=== PATIENT | female | born 1975 | race Caucasian/White ===

== ENCOUNTER 2020-09-10 19:08 | Outpatient (REF) | payer OTHER, SELFPAY | END 2020-09-10 19:09 | disposition home or self-care (01) | LOC: HO.LNP 19:08 | PROVIDERS: Visit Provider Family Medicine | DX: Z20.828 Contact with and (suspected) exposure to other viral communicable diseases (principal) | CPT/HCPCS: 87635 ==

== ENCOUNTER 2020-09-24 08:13 | Outpatient (REF) | payer OTHER, SELFPAY | END 2020-09-24 08:14 | disposition home or self-care (01) | LOC: HO.WFDLDS 08:13 | PROVIDERS: Visit Provider Internal Medicine | DX: Z20.828 Contact with and (suspected) exposure to other viral communicable diseases (principal) | CPT/HCPCS: C9803; U0003 ==

== ENCOUNTER 2020-12-19 07:03 | Outpatient (REF) | payer OTHER, SELFPAY ==
[2020-12-19 11:22] LABS: MANUAL DIFF FLAG NO
[2020-12-19 11:35] LABS: Basophils Percent Auto 0.9 % (0-2); Eosinophils Absolute Auto 0.1 X10*3/uL (0.0-0.4); Eosinophils Percent Auto 2.9 % (0-4); Hemoglobin 8.8 g/dl (12.0-16.0); Lymphocytes Absolute Auto 1.3 X10*3/uL (1.2-4.9); Lymphocytes Percent Auto 37.3 % (20-40); Mean Corpuscular HGB Conc 28.4 g/dl (31.0-35.0); Mean Corpuscular Hemoglobin 19.6 pg (27.0-33.0); Mean Platelet Volume 10.7 fL (9.4-12.3); Monocytes Absolute Auto 0.3 X10*3/uL (0.1-1.2); Monocytes Percent Auto 8.4 % (2-11); Neutrophils Absolute Auto 1.8 X10*3/uL (2.0-8.3); Neutrophils Percent Auto 50.5 % (45-73); Platelet Count 270 X10*3/uL (160-400); Red Blood Count 4.49 X10*6/uL (4.20-5.50); Red Cell Distribution Width 17.2 % (11.0-16.0); White Blood Count 3.5 X10*3/uL (4.8-10.8)
[2020-12-19 11:45] LABS: Estimated Average Glucose 117 mg/dL; Hemoglobin A1c % 5.7 %
[2020-12-19 12:05] LABS: Alanine Aminotransferase 24 U/L (0-31); Albumin Level 4.3 g/dL (3.5-5.0); Alkaline Phosphatase 59 U/L (39-117); Anion Gap 14 (12-20); Aspartate Amino Transferase 26 U/L (5-31); Bilirubin Total < 0.2 mg/dL (0.0-1.0); Blood Urea Nitrogen 13 mg/dL (9-16); Calcium 8.6 mg/dL (8.4-10.2); Carbon Dioxide 26 mmol/L (22-29); Chloride 105 mmol/L (96-108); Estimated Glomerular Filt Rate > 60; Glucose Random 97 mg/dL (60-115); Potassium 4.5 mmol/L (3.3-5.1); Sodium 140 mmol/L (135-145); Total Protein 7.4 g/dL (6.5-8.0)
[2020-12-19 12:17] LABS: TSH reflex Free T4 1.63 uIU/mL (0.32-4.0)
[2020-12-20 06:27] LABS: Follicle Stimulating Hormone 5.8 mIU/mL; Lutenizing Hormone 1.2 mIU/mL
== END 2020-12-19 07:04 | disposition home or self-care (01) ==
LOC: HO.WFDLDS 07:03
PROVIDERS: Visit Provider Family Medicine
DX: Z00.00 Encounter for general adult medical examination without abnormal findings (principal); N95.1 Menopausal and female climacteric states; R53.83 Other fatigue; R63.5 Abnormal weight gain; Z86.2 Personal history of diseases of the blood and blood-forming organs and certain disorders involving the immune mechanism; Z86.32 Personal history of gestational diabetes
CPT/HCPCS: 36415; 80053; 83001; 83002; 83036; 84443; 85025

== ENCOUNTER 2020-12-30 12:53 | Outpatient (REF) | payer OTHER, SELFPAY ==
[2020-12-30 13:46] LABS: MANUAL DIFF FLAG NO
[2020-12-30 13:52] LABS: Basophils Percent Auto 0.4 % (0-2); Eosinophils Percent Auto 0.8 % (0-4); Hematocrit 31.4 % (37-47); Hemoglobin 8.8 g/dl (12.0-16.0); Immature Retic Fraction 17.1 % (3.0-15.9); Lymphocytes Absolute Auto 1.3 X10*3/uL (1.2-4.9); Mean Corpuscular Hemoglobin 19.6 pg (27.0-33.0); Mean Corpuscular Volume 69.9 fL (80-98); Mean Platelet Volume 10.6 fL (9.4-12.3); Monocytes Absolute Auto 0.4 X10*3/uL (0.1-1.2); Monocytes Percent Auto 7.1 % (2-11); Neutrophils Absolute Auto 3.3 X10*3/uL (2.0-8.3); Neutrophils Percent Auto 65.7 % (45-73); Platelet Count 277 X10*3/uL (160-400); Red Blood Count 4.49 X10*6/uL (4.20-5.50); Red Cell Distribution Width 17.2 % (11.0-16.0); Retic HGB Equivalent 21.6 pg (30.0-35.0); Reticulocyte Percent 0.9 % (0.5-1.8); White Blood Count 5.1 X10*3/uL (4.8-10.8)
[2020-12-30 14:12] LABS: Iron 96 mcg/dL (30-160); Percent Iron Saturation 23 % (15-50); Total Iron Binding Capacity 423 mcg/dL (228-428); Unsaturated Iron Binding 327 ug/dL
[2020-12-30 14:42] LABS: Folate > 20.0 ng/mL (> or = 4.0); Vitamin B12 1515 pg/mL (200-900)
== END 2020-12-30 12:54 | disposition home or self-care (01) ==
LOC: HO.WFDLDS 12:53
PROVIDERS: PCP Family Medicine; Visit Provider Family Medicine
DX: D64.9 Anemia, unspecified (principal)
CPT/HCPCS: 36415; 82607; 82746; 83540; 85025; 85045

== ENCOUNTER 2021-07-29 12:48 | Outpatient (REF) | payer OTHER, SELFPAY ==
[2021-08-01 14:46] LABS: TS Negative Control Passed; TS Panel A 0; TS Panel B 0; TS Positive Control Passed; TSpotTB Negative (SeeBelow)
== END 2021-07-29 12:49 | disposition home or self-care (01) ==
LOC: HO.WFDLDS 12:48
PROVIDERS: Visit Provider Family Medicine
DX: Z11.1 Encounter for screening for respiratory tuberculosis (principal)
CPT/HCPCS: 36415; 86481

== ENCOUNTER 2023-06-15 10:21 | Outpatient (AMB) | payer OTHER, SELFPAY ==
--- NOTE | 2023-06-15 10:39 | A.OFFPC_ITS ---
Vital Signs 06/15/23 10:49 Weight 164 lb BP 110/62 Blood Pressure Location Lt brachial Position Sitting Respiration 12 Pulse 88 Pulse Source Pulse Oximeter Temp 98.4 F Temp Source Oral Pulse Oximetry (%) 98 Oxygen Delivery Method Room Air Intake Visit Reasons: right ear infection Intake Note: right ear pain and says it feels fungal. has been have ear difficulties since age 8 months with infections and fungal infections Hospitality Associate Required: No Accompanied by: Self / Same As Patient Allergies No Known Allergies Allergy (Verified 05/19/23 10:27) Medication List - Last Reconciled 06/15/23 by Kaity Villarreal, RN dexmethylphenidate (Focalin) 10 mg PO BID 30 days dextroamphetamine-amphetamine 10 mg (Adderall) 10 mg PO BID fluoxetine 20 mg PO DAILY 90 days Tobacco use date assessed: 05/19/23 Dental Screening Did you have a dental visit in the last 12 months?: Yes Did you have a dental problem in the last 6 months where you did not have access to dental care?: No Was dental information given to patient?: No HPI right ear infection HPI Details 47 y/o female presents with complaints of a R ear pain. She reports pain feels fungal and reports pain is an ongoing issue. Onset 05/15/23 Location RIGHT EAR Characteristics of symptom or complaint pain, feels fungal Relieving factors vinegar/alcohol Treatment uneffective HPI Comments History of Present Illness Details pain r ear. hx of ear infections fungal at times. [facility] Surgical History History of tubal ligation Family History Father Depression Mental health disorder Mother Depression HTN (hypertension) Mental health disorder Brother No problems noted. Brother No problems noted. Brother No problems noted. Sister No problems noted. Son No problems noted. Son No problems noted. 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 1. Little interest or pleasure in doing things: not at all 2. Feeling down, depressed, or hopeless: not at all 3. Trouble falling or staying asleep, or sleeping too much: not at all 4. Feeling tired or having little energy: several days 5. Poor appetite or overeating: not at all 6. Feeling bad about yourself - or that you are a failure or have let yourself or your family down: not at all 7. Trouble concentrating on things, such as reading the newspaper or watching television: not at all 8. Moving or speaking so slowly that other people could have noticed. Or the opposite - being so fidgety or restless that you have been moving around a lot more than usual: not at all 9. Thoughts that you would be better off or of hurting yourself in some way: not at all Total score: 1 Depression Screening Interpretation: Negative Source: Developed by Drs. Chepe Cortez, David Decker and colleagues, with an educational deepali from [employer]. CACHORRO-7 AMB Questionnaire CACHORRO-7 Date CACHORRO - 7 assessed: 05/19/23 Source: Developed by Drs. Chepe Cortez, Xi Burrell, David Clarke and colleagues, with an educational deepali from [employer]. Physical exam (Primary Care) Vital Signs: Last Vital Signs Temp 98.4 F 06/15/23 10:49 Pulse 88 06/15/23 10:49 Resp 12 06/15/23 10:49 BP 110/62 06/15/23 10:49 Pulse Ox 98 06/15/23 10:49 Oxygen Delivery Method Room Air 06/15/23 10:49 Tobacco/Smoking Status: Tobacco use Status Tobacco use date assessed 05/19/23 06/15/23 10:51 Patient Tobacco Use Status Never used Tobacco 06/15/23 10:57 e-Cigarette/Vaping Use Never Used 06/15/23 10:51 PHQ-9: PHQ-9 Score PHQ-9: Total score 1 06/15/23 10:57 Depression Screening Interpretation: Negative Assessment and Plan Assessment & Plan (1) Infection of right ear: Code(s): H66.91 - Otitis media, unspecified, right ear Plan: Infection and right ear canal Patient notes that she has had bacterial and fungal infections of the right ear canal previously and required both and ascetic acid antifungal and an antibacterial drops as well. Script for ascetic acid and also for ofloxacin ear drops. Medications: New ofloxacin 0.3% 5 drps otic (ears) DAILY 5 mL 0RF 7 days acetic acid 2% 4 drps otic (ear) right TID 15 mL 0RF 4 days Coding Level of Care Code Est Pt Level 3 (95761) Diagnoses Infection of right ear H66.91
[2023-06-15 10:49] VITALS: BP 110/62; PULSE 88; RESP 12; TEMP 36.9; O2SAT 98
== END 2023-06-15 11:03 | disposition home or self-care (01) ==
PROVIDERS: PCP Hospitalist; Visit Provider Family Medicine
DX: H66.91 Otitis media, unspecified, right ear (principal)
CPT/HCPCS: 99213

== ENCOUNTER 2023-12-20 09:25 | Outpatient (REF) | payer OTHER, SELFPAY ==
[2023-12-20 11:38] LABS: Appearance Urine Clear; Color Urine Yellow; Glucose Urine UA Negative (Negative); Leukocyte Esterase Urine Negative (Negative); Nitrite Urine Negative (Negative); Specific Gravity - Urine <= 1.005 (1.005-1.025); Urine Blood Negative (Negative); Urine Ketones Negative (Negative); Urine Protein Negative (Neg-Trace)
[2023-12-20 11:43] LABS: MANUAL DIFF FLAG NO
[2023-12-20 11:51] LABS: Basophils Percent Auto 0.6 % (0-2); Eosinophils Absolute Auto 0.1 X10*3/uL (0.0-0.4); Eosinophils Percent Auto 1.2 % (0-4); Hematocrit 35.8 % (37.0-47.0); Hemoglobin 10.9 g/dl (12.0-16.0); Imm Gran Abs Auto 0.01 X10*3/uL (0.00-0.03); Imm Gran Pct Auto 0.2 % (0.0-0.4); Lymphocytes Absolute Auto 1.5 X10*3/uL (1.2-4.9); Lymphocytes Percent Auto 28.6 % (20-40); Mean Corpuscular HGB Conc 30.4 g/dl (31.0-35.0); Mean Corpuscular Hemoglobin 23.3 pg (27.0-33.0); Mean Corpuscular Volume 76.5 fL (80.0-98.0); Mean Platelet Volume 10.2 fL (9.4-12.3); Monocytes Absolute Auto 0.4 X10*3/uL (0.1-1.2); Monocytes Percent Auto 7.2 % (2-11); Neutrophils Absolute Auto 3.2 x10*3/uL (2.0-8.3); Neutrophils Percent Auto 62.2 % (45-73); Platelet Count 231 X10*3/uL (160-400); Red Blood Count 4.68 X10*6/uL (4.20-5.50); Red Cell Distribution Width 17.2 % (11.0-16.0); White Blood Count 5.2 X10*3/uL (4.8-10.8)
[2023-12-20 12:35] LABS: Alanine Aminotransferase 22 U/L (0-31); Albumin Level 4.1 g/dL (3.5-5.0); Alkaline Phosphatase 86 U/L (39-117); Anion Gap 11 (12-20); Aspartate Amino Transferase 24 U/L (5-31); Bilirubin Total 0.2 mg/dL (0.0-1.0); Blood Urea Nitrogen 10 mg/dL (9-16); Calcium 9.1 mg/dL (8.4-10.2); Carbon Dioxide 29 mmol/L (22-29); Chloride 103 mmol/L (96-108); Cholesterol 180 mg/dL (<200); Estimated Glomerular Filt Rate > 60; Glucose Fasting 96 mg/dL (60-99); HDL Cholesterol 53 mg/dL (>40); LDL Cholesterol Calculated 113 mg/dL (<100); Potassium 4.2 mmol/L (3.3-5.1); Sodium 139 mmol/L (135-145); Total Protein 7.4 g/dL (6.5-8.0); Triglycerides 70 mg/dL (<150)
[2023-12-20 12:53] LABS: TSH reflex Free T4 1.76 uIU/mL (0.32-4.0)
== END 2023-12-20 09:26 | disposition home or self-care (01) ==
LOC: HO.WFDLDS 09:25
PROVIDERS: Visit Provider Nurse Practitioner Family
DX: Z00.00 Encounter for general adult medical examination without abnormal findings (principal)
CPT/HCPCS: 36415; 80053; 80061; 81003; 84443; 85025

== ENCOUNTER 2023-12-21 10:30 | Outpatient (REF) | payer OTHER, SELFPAY ==
[2023-12-21 15:15] LABS: Immature Retic Fraction 9.6 % (3.0-15.9); Retic HGB Equivalent 26.9 pg (30.0-35.0); Reticulocyte Percent 0.7 % (0.5-1.8)
[2023-12-21 15:31] LABS: Iron 20 mcg/dL (30-160); Percent Iron Saturation 6 % (15-50); Total Iron Binding Capacity 340 mcg/dL (228-428); Unsaturated Iron Binding 320 ug/dL
[2023-12-21 15:51] LABS: Ferritin 5 ng/mL (10-250)
[2023-12-21 16:00] LABS: Folate 11.7 ng/mL (> or = 4.0); Vitamin B12 > 2000 pg/mL (200-900)
== END 2023-12-21 10:31 | disposition home or self-care (01) ==
LOC: HO.WFDLDS 10:30
PROVIDERS: Visit Provider Nurse Practitioner Family
DX: D64.9 Anemia, unspecified (principal)
CPT/HCPCS: 36415; 82607; 82728; 82746; 83540; 85045

== ENCOUNTER 2023-12-21 16:37 | Outpatient (AMB) | payer OTHER, SELFPAY ==
[2023-12-21 16:40] VITALS: BP 132/74; PULSE 86; RESP 13; TEMP 36.3; O2SAT 99; BMI 30.4
--- NOTE | 2023-12-21 16:40 | MHC.PC.OV ---
Vital Signs 12/21/23 16:40 Height 5 ft 4 in Weight 177 lb BMI 30.4 BP 132/74 Blood Pressure Location Rt brachial Position Sitting Respiration 13 Pulse 86 Pulse Source Pulse Oximeter Temp 97.4 F Temp Source Temporal Artery Scan Pulse Oximetry (%) 99 Oxygen Delivery Method Room Air Intake Visit Reasons: Check my hormone levels, iron, sugar, & thyroid Space Systems Operations Manager Required: No Accompanied by: Self / Same As Patient Allergies Seasonal Allergies Allergy (Intermediate, Verified 12/21/23 16:49) Itchy Eyes Medication List - Last Reconciled 12/21/23 by Salena Philippe CNP acetic acid 2% 4 drps otic (ear) right TID 4 days dexmethylphenidate (Focalin) 10 mg PO BID 30 days dextroamphetamine-amphetamine 10 mg (Adderall) 10 mg PO BID fluoxetine 20 mg PO DAILY 90 days ofloxacin 0.3% 5 drps otic (ears) DAILY 7 days Tobacco use date assessed: 12/21/23 Dental Screening Dental Screen Date: 12/21/23 Did you have a dental visit in the last 12 months?: Yes Did you have a dental problem in the last 6 months where you did not have access to dental care?: No Was dental information given to patient?: Patient has dentist HPI HPI Comments History of Present Illness Details 48-year-old female presents for chronic disease management follow-up and review of recent labs Her last office visit was in May 2023 She has history of ADHD, anxiety, and depression She reports controlled anxiety, depression, and ADHD symptoms on current treatment regiment She is on Adderall and fluoxetine which she admits to taking as prescribed without adverse reactions. No loss of appetite, weight loss, or sleep disturbance She also takes otc iron supplement (unknown dose) and multivitamins daily for about a year. She reports h/o anemia since childhood; never been evaluated by hematology She reports weight gain despite not changing her diet and activity level. She notes that she makes healthy dietary choices. She has not been exercising routinely. [facility] Medical History (Updated 12/21/23 @ 17:13 by Salena Philippe CNP) No pertinent past medical history Surgical History (Updated 12/21/23 @ 16:45 by Amy Dumont MA) No pertinent past surgical history History of tubal ligation Family History (System 09/16/23 @ 09:00 by Fidelia Rodriguez) Father Depression Mental health disorder Mother Depression HTN (hypertension) Mental health disorder Brother No problems noted. Brother No problems noted. Brother No problems noted. Sister No problems noted. Son No problems noted. Son No problems noted. 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 1. Little interest or pleasure in doing things: several days 2. Feeling down, depressed, or hopeless: several days 3. Trouble falling or staying asleep, or sleeping too much: more than half the days 4. Feeling tired or having little energy: more than half the days 5. Poor appetite or overeating: more than half the days 6. Feeling bad about yourself - or that you are a failure or have let yourself or your family down: several days 7. Trouble concentrating on things, such as reading the newspaper or watching television: more than half the days 8. Moving or speaking so slowly that other people could have noticed. Or the opposite - being so fidgety or restless that you have been moving around a lot more than usual: nearly every day 9. Thoughts that you would be better off or of hurting yourself in some way: not at all Total score: 14 Depression Screening Interpretation: Positive Depression Screening Follow-up: Existing condition and In treatment Depression Screening Done: Yes 26964 - PHQ-9 Billing: Yes Source: Developed by Drs. Chepe Cortez, Xi Burrell, David Clarke and colleagues, with an educational deepali from [email or web address]. CACHORRO-7 AMB Questionnaire CACHORRO-7 Date CACHORRO - 7 assessed: 12/21/23 Feeling nervous, anxious, or on edge: 2 = More than half the days Not being able to stop or control worryin = Not at all Worrying too much about different things: 2 = More than half the days Trouble relaxin = Nearly every day Being so restless that it is hard to sit still: 3 = Nearly every day Becoming easily annoyed or irritable: 3 = Nearly every day Feeling afraid as if something awful might happen: 1 = Several days Total CACHORRO-7 score (0-4 normal; 5-9 mild; 10-14 moderate; 15-21 severe): 14 Source: Developed by Drs. Chepe Cortez, Xi Burrell, David Clarke and colleagues, with an educational deepali from [email or web address]. CACHORRO-7 Assessment Billing CACHORRO-7 Assessment Tool: CACHORRO-7 Assessment 58006 Review of Systems Const Details: Const Denies chills, Denies fatigue, Denies fever(s), Denies headache(s) and Denies weakness ENT Denies dizziness and Denies headache(s) Card Denies chest pain, Denies lightheadedness, Denies dyspnea and Denies other (Palpitations) Resp Denies cough, Denies dyspnea, Denies wheezing and Denies other ( shortness of breath) GI Denies abdominal pain, Denies melena, Denies hematochezia, Denies change in bowel habits, Denies dyspepsia and Denies nausea Denies hematuria and Denies dysuria Musc Denies abnormal gait, Denies myalgias, Denies arthralgias, Denies numbness and Denies tingling Skin/Breast Denies rash, Denies unusual bruising and Denies wounds Neuro Denies abnormal gait, Denies dizziness, Denies headache(s), Denies memory loss, Denies numbness, Denies Sensory deficit (Neuro), Denies tingling and Denies weakness Psych Denies anxiety, Denies depression, Denies memory loss Endo Denies cold intolerance, Denies fatigue, Denies heat intolerance, Denies polydipsia and Denies polyuria Aller/Immun Denies wheezing Physical exam (Primary Care) Tobacco/Smoking Status: Tobacco use Status Tobacco use date assessed 05/19/23 06/15/23 10:51 Patient Tobacco Use Status Never used Tobacco 06/15/23 10:57 e-Cigarette/Vaping Use Never Used 06/15/23 10:51 Depression Screening Interpretation: Positive Depression Screening Follow-up: Existing condition and In treatment Const Other: General: no acute distress and well developed Nutritional Appearance: well nourished Orientation/consciousness: patient oriented x3 HENMT Head: Yes normocephalic and Yes atraumatic Eyes General: appearance normal, both eyes and all related structures Pupils: Equal, round and reactive pupils present EOM: EOMs intact bilaterally Resp Effort & Inspection: normal respiratory effort Auscultation: clear to auscultation bilaterally Cardio Rate: regular rate Rhythm: regular rhythm Heart sounds: S1 normal heart sound present, S2 normal heart sound present, no gallops, no murmurs and no rubs GI Palpation (GI): No Abdominal aortic bruit present, Soft to palpation, nontender, No hepatosplenomegaly present and No Rebound tenderness present Auscultation: normal bowel sounds General: Yes no CVA tenderness Back/Spine/Pelvis Back: no CVA tenderness Cervical Spine: cervical ROM normal and No Cervical spine tenderness Thoracic/Lumbar Spine: thoraco-lumbar ROM normal, No pain with thoraco-lumbar ROM, No thoracic spinal tenderness and No lumbar spinal tenderness Extrem General: Yes normal to inspection, No edema and No calf tenderness Skin General: warm and dry. Normal skin color. Normal skin turgor Lesions: no lesions Rashes: no rashes Trauma: no lacerations or abrasions Wounds: no wounds Nails: normal Neuro General: patient oriented x3, gait normal and no focal neuro deficit Cranial nerves: Yes Equal, round and reactive pupils present Cognition (Neuro): normal cognition Gait exam (Neuro): Normal gait present Sensory Exam: No Sensory deficit (Neuro) Psych Appearance: grossly normal Affect: normal affect Attitude: cooperative Thought process: Normal thought process present Assessment and Plan Assessment & Plan (1) Iron deficiency anemia: Code(s): D50.9 - Iron deficiency anemia, unspecified Plan: Recent lab results reviewed with the patient H&H, MCV, and retic count levels are low, 10.9/35.8, 76.5, and 26.9. Iron and ferritin levels a low, 20 and 5. Retic count is low, 26.9 Ferrous sulfate ordered. Take as prescribed Will recheck CBC and iron studies in 6 weeks Referred to Hematology Will recheck CBC, iron studies, and retic count. Advised to get blood work done 2-3 days before her next visit Follow-up in 6 weeks or return sooner with symptoms or concerns Verbalized understanding and agreed with treatment plan (2) Anxiety and depression: Code(s): F41.9 - Anxiety disorder, unspecified; F32.A - Depression, unspecified Plan: Controlled anxiety and depression symptoms on current treatment regimen PHQ-9 and CACHORRO-7 scores revealed moderate depression and anxiety Continue to take fluoxetine as prescribed Routine exercise encouraged Follow-up with worsening or new symptoms Verbalized understanding and agreed with treatment plan (3) ADHD: Code(s): F90.9 - Attention-deficit hyperactivity disorder, unspecified type Plan: Controlled ADHD symptoms on current treatment regimen Continue to take Adderall as prescribed Routine exercise encouraged Follow-up with worsening or new symptoms Verbalized understanding and agreed with treatment plan (4) Obesity (BMI 30.0-34.9): Code(s): E66.9 - Obesity, unspecified Plan: Weight gain despite making healthy dietary changes She gained 12 lb since last May. She currently weighs 177 lb, BMI is 30.4 Recent thyroid level is normal Declines dietitian/director agency [employer] strategic partnerships or weight management referral at this time She will continue to make healthy dietary changes and start exercising routinely Follow-up in 6 weeks or return sooner with symptoms or concerns Verbalized understanding and agreed with treatment plan Orders: Orders Ferritin 6 Weeks D50.9 - Iron deficiency anemia, unspecified Complete Blood Count no Diff 6 Weeks D50.9 - Iron deficiency anemia, unspecified IRON PROFILE 6 Weeks D50.9 - Iron deficiency anemia, unspecified Reticulocyte Count 6 Weeks D50.9 - Iron deficiency anemia, unspecified Referrals Hematology & Oncology Referral D50.9 - Iron deficiency anemia, unspecified Medications: New ferrous sulfate 325 mg PO DAILY 30 days 30 tabs 3RF Discontinued dexmethylphenidate (Focalin) [employer] verified. Partial refill upon request. Discontinued Reason: Doctor's Order 10 mg PO BID 30 days 60 tabs 0RF F90.9 - Attention-deficit hyperactivity disorder, unspecified type Coding Level of Care Code Est Pt Level 4 (20617) Diagnoses Iron deficiency anemia D50.9 Anxiety and depression F41.9; F32.A ADHD F90.9 Obesity (BMI 30.0-34.9) E66.9 Additional Codes CACHORRO-7 Assessment Billing - CACHORRO-7 Assessment Tool: CACHORRO-7 Assessment [id number] ([id number])
== END 2023-12-21 17:24 | disposition home or self-care (01) ==
PROVIDERS: PCP Nurse Practitioner Family; Visit Provider Nurse Practitioner Family
DX: D50.9 Iron deficiency anemia, unspecified (principal); F41.9 Anxiety disorder, unspecified; E66.9 Obesity, unspecified; Z68.30 Body mass index [BMI] 30.0-30.9, adult; F32.A Depression, unspecified; F90.9 Attention-deficit hyperactivity disorder, unspecified type
CPT/HCPCS: 96127; 99214

== ENCOUNTER → 2024-01-20 13:11 | Outpatient (BNV) | payer OTHER, SELFPAY | PROVIDERS: PCP Family Medicine; Referring Provider Family Medicine; Visit Provider Internal Medicine | DX: D50.9 Iron deficiency anemia, unspecified (principal) | CPT/HCPCS: 99204; 99213 ==

== ENCOUNTER 2024-02-07 15:38 | Outpatient (AMB) | payer OTHER, SELFPAY ==
[2024-02-07 15:43] VITALS: BP 114/70; PULSE 75; RESP 13; TEMP 36.1; O2SAT 98; BMI 29.9
--- NOTE | 2024-02-07 15:43 | A.OFFPC_ITS ---
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 Accompanied by: Self / Same As Patient Allergies Seasonal Allergies Allergy (Intermediate, Verified 02/07/24 15:57) Itchy Eyes Medication List - Last Reconciled 02/07/24 by Salena Philippe CNP dextroamphetamine-amphetamine 10 mg (Adderall) 10 mg PO BID ferrous sulfate 325 mg PO DAILY 30 days fluoxetine 20 mg PO DAILY 90 days Tobacco use date assessed: 12/21/23 Dental Screening Dental Screen Date: 02/07/24 Did you have a dental visit in the last 12 months?: Yes Did you have a dental problem in the last 6 months where you did not have access to dental care?: No Was dental information given to patient?: Patient has dentist HPI HPI Comments History of Present Illness Details 40-year-old female presents for iron-def iciency anemia and weight management follow-up She is on ferrous sulfate 325 mg daily. She admits to taking the medication as prescribed without adverse reactions Her recent blood work does not include her complete high iron studies. Recent H&H and ferritin level are slightly improved, 11.4/36.7 and 9 respectively. Previous H&H and ferritin level were 10.9/35.8 and 5 respectively. Iron profile and retic count were not drawn. She was evaluated by Hematology on 01/20/2024 and advised to f/u in 4 months She notes that she has been making healthy lifestyle changes, including diet and exercise She reports controlled anxiety, depression, and ADHD symptoms on current treatment. She is excited now that she has a long break from school [facility] Medical History No pertinent past medical history Surgical History No pertinent past surgical history History of tubal ligation Family History Father Depression Mental health disorder Mother Depression HTN (hypertension) Mental health disorder Brother No problems noted. Brother No problems noted. Brother No problems noted. Sister No problems noted. Son No problems noted. Son No problems noted. 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 1. Little interest or pleasure in doing things: not at all 2. Feeling down, depressed, or hopeless: not at all 3. Trouble falling or staying asleep, or sleeping too much: not at all 4. Feeling tired or having little energy: not at all 5. Poor appetite or overeating: not at all 6. Feeling bad about yourself - or that you are a failure or have let yourself or your family down: not at all 7. Trouble concentrating on things, such as reading the newspaper or watching television: not at all 8. Moving or speaking so slowly that other people could have noticed. Or the opposite - being so fidgety or restless that you have been moving around a lot more than usual: not at all 9. Thoughts that you would be better off or of hurting yourself in some way: not at all Total score: 0 Depression Screening Interpretation: Negative Depression Screening Done: Yes Source: Developed by Drs. Chepe Cortez, Xi Burrell, David Clarke and colleagues, with an educational deepali from [employer]. CACHORRO-7 AMB Questionnaire CACHORRO-7 Date CACHORRO - 7 assessed: 12/21/23 Feeling nervous, anxious, or on edge: 0 = Not at all Not being able to stop or control worryin = Not at all Worrying too much about different things: 0 = Not at all Trouble relaxin = Not at all Being so restless that it is hard to sit still: 0 = Not at all Becoming easily annoyed or irritable: 1 = Several days Feeling afraid as if something awful might happen: 0 = Not at all Total CACHORRO-7 score (0-4 normal; 5-9 mild; 10-14 moderate; 15-21 severe): 1 Source: Developed by Drs. Chepe Cortez, Xi Burrell, David Clarke and colleagues, with an educational deepali from [employer]. Review of Systems Const Details: Const Denies chills, Denies fatigue, Denies fever(s), Denies headache(s) and Denies weakness ENT Denies dizziness and Denies headache(s) Card Denies chest pain, Denies lightheadedness, Denies dyspnea and Denies other (Palpitations) Resp Denies cough, Denies dyspnea, Denies wheezing and Denies other ( shortness of breath) GI Denies abdominal pain, Denies melena, Denies hematochezia, Denies change in bowel habits, Denies dyspepsia and Denies nausea Denies hematuria and Denies dysuria Musc Denies abnormal gait, Denies myalgias, Denies arthralgias, Denies numbness and Denies tingling Skin/Breast Denies rash, Denies unusual bruising and Denies wounds Neuro Denies abnormal gait, Denies dizziness, Denies headache(s), Denies memory loss, Denies numbness, Denies Sensory deficit (Neuro), Denies tingling and Denies weakness Psych Denies anxiety, Denies depression, Denies memory loss Endo Denies cold intolerance, Denies fatigue, Denies heat intolerance, Denies polydipsia and Denies polyuria Aller/Immun Denies wheezing Physical exam (Primary Care) Tobacco/Smoking Status: Tobacco use Status Tobacco use date assessed 12/21/23 12/21/23 16:46 Patient Tobacco Use Status Never used Tobacco 12/21/23 16:44 e-Cigarette/Vaping Use Never Used 12/21/23 16:44 Depression Screening Interpretation: Negative Const Other: General: no acute distress and well developed Nutritional Appearance: well nourished Orientation/consciousness: patient oriented x3 HENMT Head: Yes normocephalic and Yes atraumatic Eyes General: appearance normal, both eyes and all related structures Pupils: Equal, round and reactive pupils present EOM: EOMs intact bilaterally Resp Effort & Inspection: normal respiratory effort Auscultation: clear to auscultation bilaterally Cardio Rate: regular rate Rhythm: regular rhythm Heart sounds: S1 normal heart sound present, S2 normal heart sound present, no gallops, no murmurs and no rubs GI Palpation (GI): No Abdominal aortic bruit present, Soft to palpation, nontender, No hepatosplenomegaly present and No Rebound tenderness present Auscultation: normal bowel sounds General: Yes no CVA tenderness Back/Spine/Pelvis Back: no CVA tenderness Cervical Spine: cervical ROM normal and No Cervical spine tenderness Thoracic/Lumbar Spine: thoraco-lumbar ROM normal, No pain with thoraco-lumbar ROM, No thoracic spinal tenderness and No lumbar spinal tenderness Extrem General: Yes normal to inspection, No edema and No calf tenderness Skin General: warm and dry. Normal skin color. Normal skin turgor Neuro General: patient oriented x3, gait normal and no focal neuro deficit Cranial nerves: Yes Equal, round and reactive pupils present Cognition (Neuro): normal cognition Gait exam (Neuro): Normal gait present Sensory Exam: No Sensory deficit (Neuro) Psych Appearance: grossly normal Affect: normal affect Attitude: cooperative Thought process: Normal thought process present Assessment and Plan Assessment & Plan (1) Iron deficiency anemia: Code(s): D50.9 - Iron deficiency anemia, unspecified Plan: Recent H&H and ferritin levels showed slight improvement, 11.4/36.7 and 9 respectively. Continue to take ferrous sulfate as prescribed. May take with vitamin-C or orange juice for better absorption Adequate hydration encouraged Follow-up with Hematology as planned Return with symptoms or concerns Verbalized understanding and agreed with treatment plan (2) Weight gain: Code(s): R63.5 - Abnormal weight gain Plan: She reports healthy lifestyle and feeling well overall Healthy diet and routine exercise encouraged Follow-up with symptoms or concerns Verbalized understanding and agreed with the plan (3) Anxiety and depression: Code(s): F41.9 - Anxiety disorder, unspecified; F32.A - Depression, unspecified Plan: Controlled symptoms Continue current tx Follow up with symptoms or concerns Verbalized understanding and agreed with the plan (4) ADHD: Code(s): F90.9 - Attention-deficit hyperactivity disorder, unspecified type Plan: As above Coding Level of Care Code Est Pt Level 3 (96769) Diagnoses Iron deficiency anemia D50.9 Weight gain R63.5 Anxiety and depression F41.9; F32.A ADHD F90.9
== END 2024-02-07 16:11 | disposition home or self-care (01) ==
PROVIDERS: PCP Nurse Practitioner Family; Visit Provider Nurse Practitioner Family
DX: D50.9 Iron deficiency anemia, unspecified (principal); R63.5 Abnormal weight gain; F41.9 Anxiety disorder, unspecified; F32.A Depression, unspecified; F90.9 Attention-deficit hyperactivity disorder, unspecified type
CPT/HCPCS: 99213

== ENCOUNTER 2024-04-17 13:09 | Outpatient (AMB) | payer OTHER, SELFPAY ==
[2024-04-17 13:28] VITALS: BP 124/76; PULSE 93; RESP 14; TEMP 36.4; O2SAT 99; BMI 29.9
--- NOTE | 2024-04-17 13:28 | A.OFFPC_ITS ---
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 Allergies Seasonal Allergies Allergy (Intermediate, Verified 04/17/24 13:50) Itchy Eyes ferrous sulfate Adverse Reaction (Intermediate, Verified 04/17/24 13:50) Stomach Upset Medication List - Last Reconciled 04/17/24 by Salena Philippe CNP dextroamphetamine-amphetamine 10 mg (Adderall) 10 mg PO BID fluoxetine 20 mg PO DAILY 90 days Tobacco use date assessed: 12/21/23 Dental Screening Dental Screen Date: 02/07/24 HPI HPI Comments History of Present Illness Details 48 y/o female presents for anxiety, depr ession, and ADHD follow up She admits to taking Adderall and fluoxetine as prescribed without adverse reactions She reports abdominal discomfort, nausea, and diarrhea while taking ferrous sulfate 325 mg daily. She self lower the dosage to every other day with improvement of her symptoms. However, she has not taken the medication for the past 2 weeks She reports controlled anxiety and depression symptoms on current treatment regimen. She admits to getting adequate amount of sleep PFSH Medical History No pertinent past medical history Surgical History No pertinent past surgical history History of tubal ligation Family History Father Depression Mental health disorder Mother Depression HTN (hypertension) Mental health disorder Brother No problems noted. Brother No problems noted. Brother No problems noted. Sister No problems noted. Son No problems noted. Son No problems noted. 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 1. Little interest or pleasure in doing things: not at all 2. Feeling down, depressed, or hopeless: not at all 3. Trouble falling or staying asleep, or sleeping too much: several days 4. Feeling tired or having little energy: several days 5. Poor appetite or overeating: not at all 6. Feeling bad about yourself - or that you are a failure or have let yourself or your family down: not at all 7. Trouble concentrating on things, such as reading the newspaper or watching television: more than half the days 8. Moving or speaking so slowly that other people could have noticed. Or the opposite - being so fidgety or restless that you have been moving around a lot more than usual: not at all 9. Thoughts that you would be better off or of hurting yourself in some way: not at all Total score: 4 Depression Screening Interpretation: Negative Depression Screening Done: Yes 34178 - PHQ-9 Billing: Yes Source: Developed by Drs. Chepe Cortez, Xi Burrell, David Clarke and colleagues, with an educational deepali from [employer]. CACHORRO-7 AMB Questionnaire CACHORRO-7 Date CACHORRO - 7 assessed: 04/17/24 Feeling nervous, anxious, or on edge: 1 = Several days Not being able to stop or control worryin = Not at all Worrying too much about different things: 1 = Several days Trouble relaxin = Several days Being so restless that it is hard to sit still: 0 = Not at all Becoming easily annoyed or irritable: 1 = Several days Feeling afraid as if something awful might happen: 0 = Not at all Total CACHORRO-7 score (0-4 normal; 5-9 mild; 10-14 moderate; 15-21 severe): 4 Source: Developed by Drs. Chepe Cortez, Xi Burrell, David Clarke and colleagues, with an educational deepali from [employer]. CACHORRO-7 Assessment Billing CACHORRO-7 Assessment Tool: CACHORRO-7 Assessment 99036 Review of Systems Const Details: Const Denies chills, Denies fatigue, Denies fever(s), Denies headache(s) and Denies weakness ENT Denies dizziness and Denies headache(s) Card Denies chest pain, Denies lightheadedness, Denies dyspnea and Denies other (Palpitations) Resp Denies cough, Denies dyspnea, Denies wheezing and Denies other ( shortness of breath) GI Denies abdominal pain, Denies melena, Denies hematochezia, Denies change in bowel habits, Denies dyspepsia and Denies nausea Denies hematuria and Denies dysuria Musc Denies abnormal gait, Denies myalgias, Denies arthralgias, Denies numbness and Denies tingling Skin/Breast Denies rash, Denies unusual bruising and Denies wounds Neuro Denies abnormal gait, Denies dizziness, Denies headache(s), Denies memory loss, Denies numbness, Denies Sensory deficit (Neuro), Denies tingling and Denies weakness Psych Denies anxiety, Denies depression, Denies memory loss Endo Denies cold intolerance, Denies fatigue, Denies heat intolerance, Denies polydipsia and Denies polyuria Aller/Immun Denies wheezing Physical exam (Primary Care) Vital Signs: Last Vital Signs Temp 97.6 F 04/17/24 13:28 Pulse 93 04/17/24 13:28 Resp 14 04/17/24 13:28 BP 124/76 04/17/24 13:28 Pulse Ox 99 04/17/24 13:28 Oxygen Delivery Method Room Air 04/17/24 13:28 BMI result Body Mass Index 29.9 Tobacco/Smoking Status: Tobacco use Status Tobacco use date assessed 12/21/23 04/17/24 13:31 Patient Tobacco Use Status Never used Tobacco 04/17/24 13:31 e-Cigarette/Vaping Use Never Used 04/17/24 13:31 PHQ-9: PHQ-9 Score PHQ-9: Total score 4 04/17/24 13:53 Depression Screening Interpretation: Negative Const Other: General: no acute distress and well developed Nutritional Appearance: well nourished Orientation/consciousness: patient oriented x3 HENMT Head: Yes normocephalic and Yes atraumatic Eyes General: appearance normal, both eyes and all related structures Pupils: Equal, round and reactive pupils present EOM: EOMs intact bilaterally Resp Effort & Inspection: normal respiratory effort Auscultation: clear to auscultation bilaterally Cardio Rate: regular rate Rhythm: regular rhythm Heart sounds: S1 normal heart sound present, S2 normal heart sound present, no gallops, no murmurs and no rubs GI Palpation (GI): No Abdominal aortic bruit present, Soft to palpation, nontender, No hepatosplenomegaly present and No Rebound tenderness present Auscultation: normal bowel sounds General: Yes no CVA tenderness Back/Spine/Pelvis Back: no CVA tenderness Cervical Spine: cervical ROM normal and No Cervical spine tenderness Thoracic/Lumbar Spine: thoraco-lumbar ROM normal, No pain with thoraco-lumbar ROM, No thoracic spinal tenderness and No lumbar spinal tenderness Extrem General: Yes normal to inspection, No edema and No calf tenderness Skin General: warm and dry. Normal skin color. Normal skin turgor Neuro General: patient oriented x3, gait normal and no focal neuro deficit Cranial nerves: Yes Equal, round and reactive pupils present Cognition (Neuro): normal cognition Gait exam (Neuro): Normal gait present Sensory Exam: No Sensory deficit (Neuro) Psych Appearance: grossly normal Affect: normal affect Attitude: cooperative Thought process: Normal thought process present Assessment and Plan Assessment & Plan (1) Anxiety and depression: Code(s): F41.9 - Anxiety disorder, unspecified; F32.A - Depression, unspecified Plan: Controlled anxiety and depression symptoms PHQ-9 and CACHORRO-7 scores are normal Continue current treatment regimen Routine exercise encouraged Follow-up in 1 month for an extended physical exam or return sooner with symptoms or concerns Verbalized understanding and agreed with the treatment plan (2) ADHD: Code(s): F90.9 - Attention-deficit hyperactivity disorder, unspecified type Plan: As above (3) Iron deficiency anemia: Code(s): D50.9 - Iron deficiency anemia, unspecified Plan: Reports abdominal discomfort, nausea, and diarrhea while taking ferrous sulfate 325 mg daily. She self lower the dosage to every other day with improvement of her symptoms. However, she has not taken the medication for the past 2 weeks Encouraged to take ferrous sulfate 325 mg daily Follow-up with Hematology as planned Return with symptoms or concerns Verbalized understanding and agreed with the treatment plan Coding Level of Care Code Est Pt Level 4 (42611) Complex EM visit Add On G2211 Diagnoses Anxiety and depression F41.9; F32.A ADHD F90.9 Iron deficiency anemia D50.9 Additional Codes CACHORRO-7 Assessment Billing - CACHORRO-7 Assessment Tool: CACHORRO-7 Assessment [id number] ([id number])
== END 2024-04-17 13:58 | disposition home or self-care (01) ==
PROVIDERS: Visit Provider Nurse Practitioner Family
DX: D50.9 Iron deficiency anemia, unspecified (principal); F41.9 Anxiety disorder, unspecified; F32.A Depression, unspecified; F90.9 Attention-deficit hyperactivity disorder, unspecified type
CPT/HCPCS: 99214; G2211

== ENCOUNTER 2024-05-29 08:27 | Outpatient (AMB) | payer OTHER, SELFPAY ==
--- NOTE | 2024-05-29 08:29 | MHC.PC.OV ---
Vital Signs 05/29/24 08:35 Height 5 ft 4 in Weight 169 lb 8 oz BMI 29.1 BP 128/82 Blood Pressure Location Lt brachial Position Sitting Respiration 16 Pulse 87 Pulse Source Pulse Oximeter Temp 97.8 F Temp Source Temporal Artery Scan Pulse Oximetry (%) 98 Oxygen Delivery Method Room Air Intake Visit Reasons: CPE Intake Note: patient here for a physical. 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: No Is last menstrual period known: Yes Last menstrual period: 05/15/24 Post menopausal: No Patient : No Allergies Seasonal Allergies Allergy (Intermediate, Verified 05/29/24 08:42) Itchy Eyes ferrous sulfate Adverse Reaction (Intermediate, Verified 05/29/24 08:42) Stomach Upset Medication List - Last Reconciled 05/29/24 by Salena Philippe CNP dextroamphetamine-amphetamine 10 mg (Adderall) 10 mg PO BID fluoxetine 20 mg PO DAILY 90 days Tobacco use date assessed: 05/29/24 Dental Screening Dental Screen Date: 05/29/24 Did you have a dental visit in the last 12 months?: Yes Did you have a dental problem in the last 6 months where you did not have access to dental care?: No Was dental information given to patient?: Patient has dentist HPI HPI Comments History of Present Illness Details 48-year-old female presents for an extended physical exam She has history of iron-deficiency anemia, prediabetes, anxiety, depression, ADHD, macula degeneration, astigmatism, and myopia She admits to taking Adderall and fluoxetine as prescribed without adverse reactions She is to take iron supplements on and off She reports controlled anxiety, depression, and ADHD symptoms on current treatment regimen She offers no complaints and denies acute symptoms at this time She is followed by [facility] hematology for iron-deficiency anemia. Her anemia has resolved. She was encouraged to continue [id number] iron supplements and vitamin-C or orange juice to enhance absorption. Colonoscopy was recommended because she has never had one Last eye exam was over 2 years ago with [facility]. She will schedule an appointment for an eye exam She notes that her last pap smear test was on 3 years ago: normal She has never had a colonoscopy done Nonsmoker. Does not drink alcohol. No recreational drug use She requests hep C testing. She notes that she tested positive for hep C in 2004. She received a year treatment with undetectable viral load. She states that she contracted the virus while attending school in [facility]; needles were reused for vaccine administration. She states that she was advised to get hepatitis-C testing every 5 years [facility] Medical History No pertinent past medical history Surgical History No pertinent past surgical history History of tubal ligation Family History Father Depression Mental health disorder Mother Depression HTN (hypertension) Mental health disorder Brother No problems noted. Brother No problems noted. Brother No problems noted. Sister No problems noted. Son No problems noted. Son No problems noted. 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 1. Little interest or pleasure in doing things: not at all 2. Feeling down, depressed, or hopeless: not at all 3. Trouble falling or staying asleep, or sleeping too much: not at all 4. Feeling tired or having little energy: several days 5. Poor appetite or overeating: not at all 6. Feeling bad about yourself - or that you are a failure or have let yourself or your family down: not at all 7. Trouble concentrating on things, such as reading the newspaper or watching television: several days 8. Moving or speaking so slowly that other people could have noticed. Or the opposite - being so fidgety or restless that you have been moving around a lot more than usual: not at all 9. Thoughts that you would be better off or of hurting yourself in some way: not at all Total score: 2 Depression Screening Interpretation: Negative Depression Screening Done: Yes 36837 - PHQ-9 Billing: Yes Source: Developed by Drs. Chepe Cortez, Xi Burrell, Daivd Clarke and colleagues, with an educational deepali from [employer]. Thrive Questionnaire Date Thrive assessed: 05/29/24 I am a: Patient What is your living situation today?: I have a steady place to live Within the past 12 months, did the food you bought not last and you didn't have the money to get more?: Never true Within the past 12 months, did you worry whether your food would run out before you got money to buy more?: Never true Do you have trouble paying for medicines?: No Do you have trouble getting transportation to medical appointments?: No Do you have trouble paying your heating and electricity bill?: No Do you have trouble taking care of your child, family member or friend?: No Do you have trouble with day-to-day activities such as bathing, preparing meals, shopping, managing finances, etc.?: No Are you currently unemployed and looking for a job?: No Are you interested in more education?: No Please select the resources that you would like help with: None Currently or been in a relationship where the following occur: No concerns reported THRIVE Score: 0 AUDIT C Alcohol Use Questionnaire (AUDIT-C) 1. How often do you have a drink containing alcohol?: Never Total Score: 0 CACHORRO-7 AMB Questionnaire CACHORRO-7 Date CACHORRO - 7 assessed: 05/29/24 Feeling nervous, anxious, or on edge: 1 = Several days Not being able to stop or control worryin = Not at all Worrying too much about different things: 1 = Several days Trouble relaxin = Several days Being so restless that it is hard to sit still: 0 = Not at all Becoming easily annoyed or irritable: 1 = Several days Feeling afraid as if something awful might happen: 1 = Several days Total CACHORRO-7 score (0-4 normal; 5-9 mild; 10-14 moderate; 15-21 severe): 5 Source: Developed by Drs. Chepe Cortez, David Decker and colleagues, with an educational deepali from [employer]. CACHORRO-7 Assessment Billing CACHORRO-7 Assessment Tool: CACHORRO-7 Assessment 16949 Review of Systems Const Details: Denies chills, Denies fatigue, Denies fever(s), Denies headache(s) and Denies weakness HEENT Denies change in vision, Denies dizziness, Denies headache(s), Denies hearing loss, Denies nasal congestion, Denies sinus pain, Denies sinus pressure and Denies sore throat Card Denies chest pain, Denies lightheadedness, Denies dyspnea and Denies other (palpitations) Resp Denies cough, Denies dyspnea and Denies wheezing GI Denies abdominal pain, Denies melena, Denies hematochezia, Denies change in bowel habits, Denies dyspepsia and Denies nausea Denies hematuria and Denies dysuria Musc Denies abnormal gait, Denies myalgias, Denies arthralgias, Denies numbness and Denies tingling Skin/Breast Denies rash, Denies unusual bruising and Denies wounds Neuro Denies abnormal gait, Denies dizziness, Denies headache(s), Denies memory loss, Denies numbness, Denies Sensory deficit (Neuro), Denies tingling and Denies weakness Psych Denies anxiety, Denies depression and Denies memory loss Endo Denies cold intolerance, Denies fatigue, Denies heat intolerance, Denies polydipsia and Denies polyuria Kedar/Lymph Denies easy bleeding and Denies easy bruising Aller/Immun Denies wheezing Physical exam (Primary Care) Tobacco/Smoking Status: Tobacco use Status Tobacco use date assessed 12/21/23 05/29/24 08:32 Patient Tobacco Use Status Never used Tobacco 05/29/24 08:32 e-Cigarette/Vaping Use Never Used 05/29/24 08:32 Depression Screening Interpretation: Negative Currently or been in a relationship where the following occur: No concerns reported Const Other: General: no acute distress, well developed, alert and awake Nutritional Appearance: well nourished Orientation/consciousness: patient oriented x3 HENMT Head: Yes normocephalic and Yes atraumatic Ears: hearing grossly normal bilaterally and TM's normal bilaterally General nose exam: Normal external nose present and Normal nares present Mouth: Normal oral and palatal mucosa present and moist mucous membranes Teeth and gingiva: dentition normal Throat: Yes oropharynx normal Eyes Pupils: Equal, round and reactive pupils present and Pupil accommodation reflex normal EOM: EOMs intact bilaterally Neck Neck: Yes normal visual inspection, Yes no lymphadenopathy and Yes trachea midline Thyroid: Thyroid normal Carotids: no bruits Lymphatic: no lymphadenopathy noted Chest Chest palpation & inspection: normal inspection of the chest Resp Effort & Inspection: normal respiratory effort Auscultation: clear to auscultation bilaterally Cardio Rate: regular rate Rhythm: regular rhythm Heart sounds: S1 normal heart sound present, S2 normal heart sound present, no gallops, no murmurs and no rubs Bruits: no abdominal aortic bruits and no carotid bruits GI Palpation (GI): No Abdominal aortic bruit present, Soft to palpation, nontender, No hepatosplenomegaly present and No Rebound tenderness present Auscultation: normal bowel sounds General: Yes no CVA tenderness Back/Spine/Pelvis Back: no CVA tenderness Cervical Spine: cervical ROM normal and No Cervical spine tenderness Thoracic/Lumbar Spine: thoraco-lumbar ROM normal, No pain with thoraco-lumbar ROM, No thoracic spinal tenderness and No lumbar spinal tenderness Skin General: warm and dry. Normal skin color. Normal skin turgor Lesions: no lesions Rashes: no rashes Trauma: no lacerations or abrasions Wounds: no wounds Nails: normal Neuro General: patient oriented x3, gait normal and CN's II-XI intact bilaterally Cranial nerves: Yes Equal, round and reactive pupils present Cognition (Neuro): normal cognition Gait exam (Neuro): Normal gait present Motor exam (neuro): 5/5 motor strength present throughout Sensory Exam: No Sensory deficit (Neuro) Deep tendon reflexes (DTR's): Right patellar reflex intensity grade: 2+ and Left patellar reflex intensity grade: 2+ Extrem General: Yes normal to inspection, No edema and No calf tenderness Psych Appearance: grossly normal Affect: normal affect Attitude: cooperative Thought process: Normal thought process present Results AMB Hemoglobin A1c AMB Hemoglobin A1c 6.1 % Last Edit by Kristin Weaver CMA on 05/29/24 08:51 Assessment and Plan Assessment & Plan (1) Normal physical examination, routine: Code(s): Z00.00 - Encounter for general adult medical examination without abnormal findings Plan: No significant physical restrictions or limitations noted Continue current treatment regimen Healthy diet and routine exercise encouraged Follow-up in 3 months for anxiety, depression, ADHD, and prediabetes Return sooner with symptoms or concerns Verbalized understanding and agreed with the treatment plan (2) Iron deficiency anemia: Code(s): D50.9 - Iron deficiency anemia, unspecified Plan: Resolved Followed by [facility] hematology Continue current treatment regimen Verbalized understanding and agreed with the plan (3) Macular degeneration: Code(s): H35.30 - Unspecified macular degeneration Plan: Her last eye exam was over 2 years ago She will schedule an appointment with her rim buster for an eye exam (4) Astigmatism: Code(s): H52.209 - Unspecified astigmatism, unspecified eye Plan: As above (5) Myopia: Code(s): H52.10 - Myopia, unspecified eye Plan: Corrected by prescription glasses (6) Anxiety and depression: Code(s): F41.9 - Anxiety disorder, unspecified; F32.A - Depression, unspecified Plan: Controlled anxiety, depression, and ADHD symptoms on current treatment regimen Continue current treatment regimen Routine exercise encouraged Follow-up in 3 months or sooner with symptoms or concerns Verbalized understanding and agreed with the treatment plan (7) ADHD: Code(s): F90.9 - Attention-deficit hyperactivity disorder, unspecified type Plan: As above (8) Pre-diabetes: Code(s): R73.03 - Prediabetes Plan: A1c today 6.1%, prediabetes ADA diet encouraged. Advised to limit carbs such as rice, pasta, bread, and potatoes Routine exercise encouraged Will recheck A1c in 3 months Verbalized understanding and agreed with the treatment plan (9) History of hepatitis C: Code(s): Z86.19 - Personal history of other infectious and parasitic diseases Plan: She requests testing. She reports undetectable viral load and notes that she requires testing every 5 years Hepatitis- B and C profile ordered (10) Pap smear for cervical cancer screening: Code(s): Z12.4 - Encounter for screening for malignant neoplasm of cervix Plan: Her last Pap smear test was over 3 years ago Referred to [facility] flight radio operator for a Pap smear test (11) Colon cancer screening: Code(s): Z12.11 - Encounter for screening for malignant neoplasm of colon Plan: She has never had a colonoscopy Referred to [facility] gastroenterology for a colonoscopy Orders: Orders AMB Hemoglobin A1c Today Z13.9 - Encounter for screening, unspecified AMB Hemoglobin A1c Today Z13.9 - Encounter for screening, unspecified Hepatitis B,C Profile Today Z86.19 - Personal history of other infectious and parasitic diseases Referrals Gastroenterology Referral Z12.11 - Encounter for screening for malignant neoplasm of colon SECOND [employer]ACING B[employer]ER Referral Z12.4 - Encounter for screening for malignant neoplasm of cervix Coding Level of Care Code Est Pt Prev Care 40-64y(77606) Diagnoses Normal physical examination, routine Z00.00 Iron deficiency anemia D50.9 Macular degeneration H35.30 Astigmatism H52.209 Myopia H52.10 Anxiety and depression F41.9; F32.A ADHD F90.9 Pre-diabetes R73.03 History of hepatitis C Z86.19 Pap smear for cervical cancer screening Z12.4 Colon cancer screening Z12.11 Additional Codes CACHORRO-7 Assessment Billing - CACHORRO-7 Assessment Tool: CAHCORRO-7 Assessment 42065 ([id number])
[2024-05-29 08:35] VITALS: BP 128/82; PULSE 87; RESP 16; TEMP 36.6; O2SAT 98; BMI 29.1
== END 2024-05-29 09:01 | disposition home or self-care (01) ==
PROVIDERS: PCP Family Medicine; Visit Provider Nurse Practitioner Family
DX: Z00.00 Encounter for general adult medical examination without abnormal findings (principal); D50.9 Iron deficiency anemia, unspecified; R73.03 Prediabetes; H35.30 Unspecified macular degeneration; F41.9 Anxiety disorder, unspecified; F32.A Depression, unspecified; F90.9 Attention-deficit hyperactivity disorder, unspecified type; Z86.19 Personal history of other infectious and parasitic diseases; Z12.11 Encounter for screening for malignant neoplasm of colon
CPT/HCPCS: 83036; 99396

== ENCOUNTER 2024-09-01 15:11 | Outpatient (AMB) | payer OTHER, SELFPAY ==
--- NOTE | 2024-09-01 15:21 | A.OFFVIS_ITS ---
Vital Signs 09/01/24 15:22 Height 5 ft 4 in Weight 152 lb 1.903 oz BMI 26.1 Blood Pressure Location Lt brachial Position Sitting Pulse 70 Pulse Source Pulse Oximeter Pulse Oximetry (%) 99 Oxygen Delivery Method Room Air Intake Visit Reasons: Colonoscopy Screening Intake Note: Relevant Flags or Indicators ? Requires Programming Specialist? N Consult w/ Dr. Regina Rodriguez presents in office today for a scheduled initial assessment. CC; Since last visit; labs ordered ? via PCP. Rx ordered ? no. Diagnostics/images ordered ? none. Relevant GI Sx as reported per pt? No prior hx of colo. Initial/Routine. ? Hx of any recent surgeries? None Programming Specialist Required: No Allergies Seasonal Allergies Allergy (Intermediate, Verified 09/01/24 15:23) Itchy Eyes ferrous sulfate Adverse Reaction (Intermediate, Verified 09/01/24 15:23) Stomach Upset HPI HPI Colonoscopy Screening: Details: 48 year old? female is here today for pre colonoscopy screening.? Patient was sent to us by her PCP.? This is her first colonoscopy screening.? Patient denies any gastrointestinal symptoms in the past or at present.? Denies any personal or family history of gastrointestinal disease, colon polyps, or CRC.? Denies history of difficulty with sedation or anesthesia in the past.? Negative for history of sleep apnea.? Denies any history of cardiac, renal, pulmonary, Patient reports that she was diagnosed with hep C after moving to [place] as from [facility] at age of 16. Patient had abnormal liver enzymes and liver studies. After diagnosed with hep C patient was treated for 1 year. ?Negative viral load since. Patient is not on any anticoagulation [facility] Medical History No pertinent past medical history Surgical History No pertinent past surgical history History of tubal ligation Family History Father Depression Mental health disorder Mother Depression HTN (hypertension) Mental health disorder Brother No problems noted. Brother No problems noted. Brother No problems noted. Sister No problems noted. Son No problems noted. Son No problems noted. 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 Current occupational exposures/hazards: No Cognitive needs: No Hearing needs: No Vision needs: No Review of Systems Const Denies weight gain and Denies weight loss ENT Reports no additional complaints, Denies dysphagia and Denies odynophagia Card Reports no additional complaints Resp Reports no additional complaints GI Denies abdominal pain, Denies belching, Denies melena, Denies bloating, Denies change in bowel habits, Denies dysphagia, Denies excessive flatus, Denies dyspepsia, Denies heartburn, Denies diarrhea, Denies loose stools, Denies nausea, Denies odynophagia and Denies vomiting Musc Reports no additional complaints Neuro Reports no additional complaints Psych Reports no additional complaints Endo Reports no additional complaints Physical Exam Vital Signs: Last Vital Signs Pulse 70 09/01/24 15:22 Pulse Ox 99 09/01/24 15:22 Oxygen Delivery Method Room Air 09/01/24 15:22 BMI result Body Mass Index 26.1 Const General: healthy appearing, no acute distress and well developed Nutritional Appearance: well nourished Orientation/consciousness: patient oriented x3 Resp Effort & Inspection: normal respiratory effort, able to speak in complete sentences, no tracheal deviation and symmetric chest movement Auscultation: clear to auscultation bilaterally Cardio Rate: regular rate GI Inspection: Yes normal to inspection and No distended Palpation (GI): Soft to palpation, not firm, nontender and No hepatosplenomegaly present Auscultation: normal bowel sounds General: Yes no CVA tenderness Back/Spine/Pelvis Back: no CVA tenderness Skin General skin exam: elasticity normal, turgor normal and dry skin Neuro General: patient oriented x3 Psych Appearance: grossly normal Mental Status: mental status grossly normal Assessment & Plan Assessment & Plan (1) History of hepatitis C: Code(s): Z86.19 - Personal history of other infectious and parasitic diseases Category: Medical (2) Colon cancer screening: Code(s): Z12.11 - Encounter for screening for malignant neoplasm of colon Category: Medical Plan Patient denies any GI, cardiac or respiratory symptoms.? Denies any issues with anesthesia in the past.? Denies any history of sleep apnea.? Not on any anticoagulation therapy.? No family or personal history of colon cancer or polyps.? Patient denies melena, hematochezia, unintentional weight loss or ribbon like stools.? Discussed at length the pre-procedure,? prep, diet & medications as well as what to expect prior, during and after the procedure.?? Stressed the importance of good bowel prep.? Recommended the use of Vaseline or Calmoseptine OTC & baby wipes with bowel movements to promote comfort.? ?Patient verbalizes understanding and agrees to plan of care.? She was given the opportunity to ask questions and all questions answered.? We will see her after the procedure.? Medications: New polyethylene glycol 3350 (Miralax) As directed by gastroenterology department at [facility] 238 grams PO ONCE 238 grams 0RF Z12.11 - Encounter for screening for malignant neoplasm of colon bisacodyl (Dulcolax (bisacodyl)) take 4 tabs at noon the day before your colonoscopy 20 mg (4 x 5 mg) PO ONCE 1 day 4 tabs 0RF Z12.11 - Encounter for screening for malignant neoplasm of colon Coding Level of Care Code New Pt Level 3 (26765) Diagnoses History of hepatitis C Z86.19 Colon cancer screening Z12.11 Time Spent (min) 40 Comment 30 minutes spent with patient and additional 10 minutes spent reviewing her records
[2024-09-01 15:22] VITALS: PULSE 70; O2SAT 99; BMI 26.1
== END 2024-09-01 16:37 | disposition home or self-care (01) ==
PROVIDERS: Visit Provider Nurse Practitioner Family
DX: Z86.19 Personal history of other infectious and parasitic diseases (principal); Z12.11 Encounter for screening for malignant neoplasm of colon
CPT/HCPCS: 99203

== ENCOUNTER → 2024-09-01 15:11 | Outpatient (BNVA) | payer OTHER, SELFPAY | PROVIDERS: Visit Provider Nurse Practitioner Family ==

== ENCOUNTER 2024-09-12 13:11 | Outpatient (AMB) | payer OTHER, SELFPAY ==
--- NOTE | 2024-09-12 13:13 | MHC.PC.OV ---
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 Is last menstrual period known: No Post menopausal: Yes (maybe ) Patient : No Allergies Seasonal Allergies Allergy (Intermediate, Verified 09/12/24 13:45) Itchy Eyes ferrous sulfate Adverse Reaction (Intermediate, Verified 09/12/24 13:45) Stomach Upset Medication List - Last Reconciled 09/12/24 by Salena Philippe CNP bisacodyl (Dulcolax (bisacodyl)) 20 mg (4 x 5 mg) PO ONCE 1 day dextroamphetamine-amphetamine 10 mg (Adderall) 10 mg PO BID fluoxetine 20 mg PO DAILY 90 days multivitamin 1 tab PO DAILY polyethylene glycol 3350 (Miralax) 238 grams PO ONCE Tobacco use date assessed: 09/12/24 Dental Screening Dental Screen Date: 09/12/24 Did you have a dental visit in the last 12 months?: Yes Did you have a dental problem in the last 6 months where you did not have access to dental care?: No Was dental information given to patient?: Patient has dentist HPI HPI Comments History of Present Illness Details 48-year-old female presents for prediabetes, anxiety, depression, and ADHD follow-up She admits to taking fluoxetine and Adderall as prescribed without adverse reactions He admits to making lifestyle changes, including diet and exercise She denies unintentional weight loss, loss of appetite, or sleep disturbance She offers no complaints and denies acute symptoms at this time [facility] Medical History No pertinent past medical history Surgical History No pertinent past surgical history History of tubal ligation Family History Father Depression Mental health disorder Mother Depression HTN (hypertension) Mental health disorder Brother No problems noted. Brother No problems noted. Brother No problems noted. Sister No problems noted. Son No problems noted. Son No problems noted. 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 1. Little interest or pleasure in doing things: not at all 2. Feeling down, depressed, or hopeless: not at all 3. Trouble falling or staying asleep, or sleeping too much: not at all 4. Feeling tired or having little energy: several days 5. Poor appetite or overeating: not at all 6. Feeling bad about yourself - or that you are a failure or have let yourself or your family down: not at all 7. Trouble concentrating on things, such as reading the newspaper or watching television: several days 8. Moving or speaking so slowly that other people could have noticed. Or the opposite - being so fidgety or restless that you have been moving around a lot more than usual: not at all 9. Thoughts that you would be better off or of hurting yourself in some way: not at all Total score: 2 Depression Screening Interpretation: Negative Depression Screening Done: Yes 54795 - PHQ-9 Billing: Yes Source: Developed by Drs. Chepe Cortez, Xi Burrell, David Clarke and colleagues, with an educational deepali from [employer]. Thrive Questionnaire Date Thrive assessed: 09/12/24 I am a: Patient What is your living situation today?: I have a steady place to live Within the past 12 months, did the food you bought not last and you didn't have the money to get more?: Never true Within the past 12 months, did you worry whether your food would run out before you got money to buy more?: Never true Do you have trouble paying for medicines?: No Do you have trouble getting transportation to medical appointments?: No Do you have trouble paying your heating and electricity bill?: No Do you have trouble taking care of your child, family member or friend?: No Do you have trouble with day-to-day activities such as bathing, preparing meals, shopping, managing finances, etc.?: No Are you currently unemployed and looking for a job?: No Are you interested in more education?: No Please select the resources that you would like help with: None Currently or been in a relationship where the following occur: No concerns reported THRIVE Score: 0 AUDIT C Alcohol Use Questionnaire (AUDIT-C) 1. How often do you have a drink containing alcohol?: Never 3. How often do you have six or more drinks on one occasion?: Never Total Score: 0 CACHORRO-7 AMB Questionnaire CACHORRO-7 Date CACHORRO - 7 assessed: 09/12/24 Feeling nervous, anxious, or on edge: 1 = Several days Not being able to stop or control worryin = Several days Worrying too much about different things: 1 = Several days Trouble relaxin = Several days Being so restless that it is hard to sit still: 1 = Several days Becoming easily annoyed or irritable: 1 = Several days Feeling afraid as if something awful might happen: 0 = Not at all Total CACHORRO-7 score (0-4 normal; 5-9 mild; 10-14 moderate; 15-21 severe): 6 Source: Developed by Drs. Chepe Cortez, Xi Burrell, David Clarke and colleagues, with an educational deepali from [employer]. CACHORRO-7 Assessment Billing CACHORRO-7 Assessment Tool: CACHORRO-7 Assessment 24177 Review of Systems Const Details: Const Denies chills, Denies fatigue, Denies fever(s), Denies headache(s) and Denies weakness ENT Denies dizziness and Denies headache(s) Card Denies chest pain, Denies lightheadedness, Denies dyspnea and Denies other (Palpitations) Resp Denies cough, Denies dyspnea, Denies wheezing and Denies other ( shortness of breath) GI Denies abdominal pain, Denies melena, Denies hematochezia, Denies change in bowel habits, Denies dyspepsia and Denies nausea Denies hematuria and Denies dysuria Musc Denies abnormal gait, Denies myalgias, Denies arthralgias, Denies numbness and Denies tingling Skin/Breast Denies rash, Denies unusual bruising and Denies wounds Neuro Denies abnormal gait, Denies dizziness, Denies headache(s), Denies memory loss, Denies numbness, Denies Sensory deficit (Neuro), Denies tingling and Denies weakness Psych Denies anxiety, Denies depression, Denies memory loss Endo Denies cold intolerance, Denies fatigue, Denies heat intolerance, Denies polydipsia and Denies polyuria Aller/Immun Denies wheezing Physical exam (Primary Care) Vital Signs: Last Vital Signs Temp 98.0 F 09/12/24 13:20 Pulse 89 09/12/24 13:20 Resp 16 09/12/24 13:20 BP 120/70 09/12/24 13:20 Pulse Ox 97 09/12/24 13:20 Oxygen Delivery Method Room Air 09/12/24 13:20 BMI result Body Mass Index 26.1 Tobacco/Smoking Status: Tobacco use Status Tobacco use date assessed 09/12/24 09/12/24 13:19 Patient Tobacco Use Status Never used Tobacco 09/12/24 13:19 e-Cigarette/Vaping Use Never Used 09/12/24 13:19 PHQ-9: PHQ-9 Score PHQ-9: Total score 2 09/12/24 13:19 Depression Screening Interpretation: Negative Thrive Assessment: Date of Thrive Assessment Date Thrive assessed 09/12/24 09/12/24 13:19 Currently or been in a relationship where the following occur: No concerns reported Const Other: General: no acute distress and well developed Nutritional Appearance: well nourished Orientation/consciousness: patient oriented x3 HENMT Head: Yes normocephalic and Yes atraumatic Eyes General: appearance normal, both eyes and all related structures Pupils: Equal, round and reactive pupils present EOM: EOMs intact bilaterally Resp Effort & Inspection: normal respiratory effort Auscultation: clear to auscultation bilaterally Cardio Rate: regular rate Rhythm: regular rhythm Heart sounds: S1 normal heart sound present, S2 normal heart sound present, no gallops, no murmurs and no rubs GI Palpation (GI): No Abdominal aortic bruit present, Soft to palpation, nontender, No hepatosplenomegaly present and No Rebound tenderness present Auscultation: normal bowel sounds General: Yes no CVA tenderness Back/Spine/Pelvis Back: no CVA tenderness Extrem General: Yes normal to inspection, No edema and No calf tenderness Skin General: warm and dry. Normal skin color. Normal skin turgor Neuro General: patient oriented x3, gait normal and no focal neuro deficit Cranial nerves: Yes Equal, round and reactive pupils present Cognition (Neuro): normal cognition Gait exam (Neuro): Normal gait present Sensory Exam: No Sensory deficit (Neuro) Psych Appearance: grossly normal Affect: normal affect Attitude: cooperative Thought process: Normal thought process present Results AMB Hemoglobin A1c AMB Hemoglobin A1c 5.9 % Last Edit by Thelma Harris MA on 09/12/24 13:54 Coding Level of Care Code Est Pt Level 3 (89598) Diagnoses Pre-diabetes R73.03 Anxiety and depression F41.9; F32.A ADHD F90.9 Additional Codes CACHORRO-7 Assessment Billing - CACHORRO-7 Assessment Tool: CACHORRO-7 Assessment 52454 ([id number]) Assessment & Plan Assessment & Plan (1) Pre-diabetes: Code(s): R73.03 - Prediabetes Category: Medical Plan: A1c today is 5.9%. Previous A1c was 6.1% Healthy diet and routine exercise encouraged Will recheck A1c in 6-12 months Verbalized understanding and agreed with the plan (2) Anxiety and depression: Code(s): F41.9 - Anxiety disorder, unspecified; F32.A - Depression, unspecified Category: Medical Plan: Reports controlled anxiety and depressive symptoms. No unintentional weight loss, loss of appetite, or sleep disturbance PHQ-9 score is normal. CACHORRO-7 score reveals mild anxiety Continue current treatment regimen ADA diet and routine exercise encouraged Follow-up in 3 months or sooner with worsening or new symptoms Verbalized understanding and agreed with the treatment plan (3) ADHD: Code(s): F90.9 - Attention-deficit hyperactivity disorder, unspecified type Category: Medical Plan: Plan as above Orders: Orders AMB Hemoglobin A1c Today Z13.9 - Encounter for screening, unspecified
[2024-09-12 13:20] VITALS: BP 120/70; PULSE 89; RESP 16; TEMP 36.7; O2SAT 97; BMI 26.1
== END 2024-09-12 13:54 | disposition home or self-care (01) ==
LOC: HO.HMCFM 13:12
PROVIDERS: Visit Provider Nurse Practitioner Family
DX: R73.03 Prediabetes (principal); F41.9 Anxiety disorder, unspecified; F32.A Depression, unspecified; F90.9 Attention-deficit hyperactivity disorder, unspecified type; Z13.9 Encounter for screening, unspecified

== ENCOUNTER → 2024-09-12 13:11 | Outpatient (BNVA) | payer OTHER, SELFPAY | PROVIDERS: Visit Provider Nurse Practitioner Family | DX: R73.03 Prediabetes (principal); F41.9 Anxiety disorder, unspecified; F32.A Depression, unspecified; F90.9 Attention-deficit hyperactivity disorder, unspecified type | CPT/HCPCS: 83036; 96127 ==

== ENCOUNTER 2024-11-21 14:50 | Outpatient (AMB) | payer OTHER, SELFPAY ==
--- NOTE | 2024-11-21 14:55 | MHC.PC.OV ---
Vital Signs 11/21/24 14:58 Height 5 ft 4 in Weight 151 lb 6 oz BMI 26.0 BP 113/58 L Blood Pressure Location Rt brachial Position Sitting Respiration 16 Pulse 74 Pulse Source Pulse Oximeter Temp 97.6 F Temp Source Oral Pulse Oximetry (%) 100 Oxygen Delivery Method Room Air Intake Visit Reasons: ADHD Med. Review Intake Note: patient here for ADHD med review Is last menstrual period known: No Post menopausal: No Patient : No Allergies Seasonal Allergies Allergy (Intermediate, Verified 11/21/24 15:12) Itchy Eyes ferrous sulfate Adverse Reaction (Intermediate, Verified 11/21/24 15:12) Stomach Upset Medication List - Last Reconciled 11/21/24 by Salena Philippe CNP bisacodyl (Dulcolax (bisacodyl)) 20 mg (4 x 5 mg) PO ONCE 1 day dextroamphetamine-amphetamine 10 mg (Adderall) 10 mg PO BID fluoxetine 20 mg PO DAILY 90 days multivitamin 1 tab PO DAILY polyethylene glycol 3350 (Miralax) 238 grams PO ONCE Tobacco use date assessed: 11/21/24 Dental Screening Dental Screen Date: 11/21/24 Did you have a dental visit in the last 12 months?: Yes Did you have a dental problem in the last 6 months where you did not have access to dental care?: No Was dental information given to patient?: Patient has dentist HPI HPI Comments History of Present Illness Details 49-year-old female presents for anxiety, depression, and ADHD follow-up. She admits to taking fluoxetine and Adderall as prescribed without adverse reactions. He admits to making lifestyle changes, including diet and exercise. She denies unintentional weight loss, loss of appetite, or sleep disturbance. She offers no complaints and denies acute symptoms at this time. [facility] Medical History No pertinent past medical history Surgical History No pertinent past surgical history History of tubal ligation Family History Father Depression Mental health disorder Mother Depression HTN (hypertension) Mental health disorder Brother No problems noted. Brother No problems noted. Brother No problems noted. Sister No problems noted. Son No problems noted. Son No problems noted. 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 1. Little interest or pleasure in doing things: not at all 2. Feeling down, depressed, or hopeless: not at all 3. Trouble falling or staying asleep, or sleeping too much: not at all 4. Feeling tired or having little energy: several days 5. Poor appetite or overeating: not at all 6. Feeling bad about yourself - or that you are a failure or have let yourself or your family down: not at all 7. Trouble concentrating on things, such as reading the newspaper or watching television: several days 8. Moving or speaking so slowly that other people could have noticed. Or the opposite - being so fidgety or restless that you have been moving around a lot more than usual: not at all 9. Thoughts that you would be better off or of hurting yourself in some way: not at all Total score: 2 Depression Screening Interpretation: Negative Depression Screening Done: Yes 36855 - PHQ-9 Billing: Yes Source: Developed by Drs. Chepe Cortez, Xi Burrell, David Clarke and colleagues, with an educational deepali from [employer]. Thrive Questionnaire Date Thrive assessed: 11/21/24 I am a: Patient What is your living situation today?: I have a steady place to live Within the past 12 months, did the food you bought not last and you didn't have the money to get more?: Never true Within the past 12 months, did you worry whether your food would run out before you got money to buy more?: Never true Do you have trouble paying for medicines?: No Do you have trouble getting transportation to medical appointments?: No Do you have trouble paying your heating and electricity bill?: No Do you have trouble taking care of your child, family member or friend?: No Do you have trouble with day-to-day activities such as bathing, preparing meals, shopping, managing finances, etc.?: No Are you currently unemployed and looking for a job?: No Are you interested in more education?: No Please select the resources that you would like help with: None Currently or been in a relationship where the following occur: No concerns reported THRIVE Score: 0 AUDIT C Alcohol Use Questionnaire (AUDIT-C) 1. How often do you have a drink containing alcohol?: Never Total Score: 0 CACHORRO-7 AMB Questionnaire CACHORRO-7 Date CACHORRO - 7 assessed: 11/21/24 Feeling nervous, anxious, or on edge: 1 = Several days Not being able to stop or control worryin = Not at all Worrying too much about different things: 1 = Several days Trouble relaxin = Several days Being so restless that it is hard to sit still: 0 = Not at all Becoming easily annoyed or irritable: 1 = Several days Feeling afraid as if something awful might happen: 0 = Not at all Total CACHORRO-7 score (0-4 normal; 5-9 mild; 10-14 moderate; 15-21 severe): 4 Source: Developed by Drs. Chepe Cortez, Xi Burrell, David Clarke and colleagues, with an educational deepali from [employer]. CACHORRO-7 Assessment Billing CACHORRO-7 Assessment Tool: CACHORRO-7 Assessment 78801 Review of Systems Const Details: Const Denies chills, Denies fatigue, Denies fever(s), Denies headache(s) and Denies weakness ENT Denies dizziness and Denies headache(s) Card Denies chest pain, Denies lightheadedness, Denies dyspnea and Denies other (Palpitations) Resp Denies cough, Denies dyspnea, Denies wheezing and Denies other ( shortness of breath) GI Denies abdominal pain, Denies melena, Denies hematochezia, Denies change in bowel habits, Denies dyspepsia and Denies nausea Denies hematuria and Denies dysuria Musc Denies abnormal gait, Denies myalgias, Denies arthralgias, Denies numbness and Denies tingling Skin/Breast Denies rash, Denies unusual bruising and Denies wounds Neuro Denies abnormal gait, Denies dizziness, Denies headache(s), Denies memory loss, Denies numbness, Denies Sensory deficit (Neuro), Denies tingling and Denies weakness Psych Denies anxiety, Denies depression, Denies memory loss Endo Denies cold intolerance, Denies fatigue, Denies heat intolerance, Denies polydipsia and Denies polyuria Aller/Immun Denies wheezing Physical exam (Primary Care) Vital Signs: Last Vital Signs Temp 97.6 F 11/21/24 14:58 Pulse 74 11/21/24 14:58 Resp 16 11/21/24 14:58 BP 113/58 L 11/21/24 14:58 Pulse Ox 100 11/21/24 14:58 Oxygen Delivery Method Room Air 11/21/24 14:58 BMI result Body Mass Index 26.0 Tobacco/Smoking Status: Tobacco use Status Tobacco use date assessed 11/21/24 11/21/24 15:01 Patient Tobacco Use Status Never used Tobacco 11/21/24 14:57 e-Cigarette/Vaping Use Never Used 11/21/24 14:57 PHQ-9: PHQ-9 Score PHQ-9: Total score 2 11/21/24 14:57 Depression Screening Interpretation: Negative Thrive Assessment: Date of Thrive Assessment Date Thrive assessed 11/21/24 11/21/24 14:57 Currently or been in a relationship where the following occur: No concerns reported Const Other: General: no acute distress and well developed Nutritional Appearance: well nourished Orientation/consciousness: patient oriented x3 HENMT Head: Yes normocephalic and Yes atraumatic Eyes General: appearance normal, both eyes and all related structures Pupils: Equal, round and reactive pupils present EOM: EOMs intact bilaterally Resp Effort & Inspection: normal respiratory effort Auscultation: clear to auscultation bilaterally Cardio Rate: regular rate Rhythm: regular rhythm Heart sounds: S1 normal heart sound present, S2 normal heart sound present, no gallops, no murmurs and no rubs GI Palpation (GI): No Abdominal aortic bruit present, Soft to palpation, nontender, No hepatosplenomegaly present and No Rebound tenderness present Auscultation: normal bowel sounds General: Yes no CVA tenderness Back/Spine/Pelvis Back: no CVA tenderness Cervical Spine: cervical ROM normal and No Cervical spine tenderness Thoracic/Lumbar Spine: thoraco-lumbar ROM normal, No pain with thoraco-lumbar ROM, No thoracic spinal tenderness and No lumbar spinal tenderness Extrem General: Yes normal to inspection, No edema and No calf tenderness Skin General: warm and dry. Normal skin color. Normal skin turgor Neuro General: patient oriented x3, gait normal and no focal neuro deficit Cranial nerves: Yes Equal, round and reactive pupils present Cognition (Neuro): normal cognition Gait exam (Neuro): Normal gait present Sensory Exam: No Sensory deficit (Neuro) Psych Appearance: grossly normal Affect: normal affect Attitude: cooperative Thought process: Normal thought process present Coding Level of Care Code Est Pt Level 3 (15459) Diagnoses Anxiety and depression F41.9; F32.A ADHD F90.9 Additional Codes CACHORRO-7 Assessment Billing - CACHORRO-7 Assessment Tool: CACHORRO-7 Assessment 91867 ([id number]) PHQ-9 - 05250 - PHQ-9 Billing: Yes ([id number]) Assessment & Plan Assessment & Plan (1) Anxiety and depression: Code(s): F41.9 - Anxiety disorder, unspecified; F32.A - Depression, unspecified Category: Medical Plan: Controlled anxiety, depressive, and ADHD symptoms. Continue current treatment regimen. Routine exercise encouraged. Follow-up in 3 months or sooner with symptoms or concerns. Verbalized understanding and agreed with treatment plan. (2) ADHD: Code(s): F90.9 - Attention-deficit hyperactivity disorder, unspecified type Category: Medical Plan: Plan as above.
[2024-11-21 14:58] VITALS: BP 113/58; PULSE 74; RESP 16; TEMP 36.4; O2SAT 100; BMI 26.0
== END 2024-11-21 15:24 | disposition home or self-care (01) ==
PROVIDERS: PCP Nurse Practitioner Family; Visit Provider Nurse Practitioner Family
DX: F41.9 Anxiety disorder, unspecified (principal); F32.A Depression, unspecified; F90.9 Attention-deficit hyperactivity disorder, unspecified type

== ENCOUNTER → 2024-11-21 14:50 | Outpatient (BNVA) | payer OTHER, SELFPAY | PROVIDERS: PCP Nurse Practitioner Family; Visit Provider Nurse Practitioner Family | DX: F41.9 Anxiety disorder, unspecified (principal); F32.A Depression, unspecified; F90.9 Attention-deficit hyperactivity disorder, unspecified type; Z79.899 Other long term (current) drug therapy | CPT/HCPCS: 96127 ==

== ENCOUNTER 2025-01-02 06:16 | Day surgery (SDC) | payer OTHER, SELFPAY ==
[2024-12-28 14:02] VITALS: BMI 26.0
--- NOTE | 2024-12-29 09:41 | HO.ANESPROP2 ---
Documented by User: Kate Winters NP 12/29/24 09:42 HPI - Anesthesia Eval Consult details Narrative: 49yo F for Colonoscopy PMFSH Active Problems Active Problems: All Active Problems History of hepatitis C (Acute) Colon cancer screening (Acute) Pap smear for cervical cancer screening (Acute) Myopia (Acute) Astigmatism (Acute) Macular degeneration (Acute) Normal physical examination, routine (Acute) Obesity (BMI 30.0-34.9) (Acute) Iron deficiency anemia (Acute) Mild anemia (Acute) Laboratory tests ordered as part of a complete physical exam (CPE) (Acute) Infection of right ear (Acute) Anxiety and depression (Acute) COVID-19 (Acute) ADHD (Acute) Screening for tuberculosis (Acute) Pre-diabetes (Acute) Anemia (Chronic) History of anemia (Acute) History of gestational diabetes (Acute) Perimenopausal (Acute) Weight gain (Acute) Fatigue (Acute) Close exposure to COVID-19 virus (Acute) Past Medical History Medical History (Updated 12/28/24 @ 13:53 by Marion Silver RN) Gestational diabetes Pre-diabetes ADHD (attention deficit hyperactivity disorder) Anxiety and depression Iron deficiency anemia Macular degeneration Hepatitis C Family History Family History Father Depression Mental health disorder Mother Depression HTN (hypertension) Mental health disorder Brother No problems noted. Brother No problems noted. Brother No problems noted. Sister No problems noted. Son No problems noted. Son No problems noted. Surgical History Surgical History (Updated 12/28/24 @ 13:54 by Marion Silver RN) History of tubal ligation Social History Social History Housing: House Are you a primary healthcare administrative assistant to a significant other at home: No Do you presently have visiting nurse or other home services: No Alcohol intake: never Patient Tobacco Use Status: Never used Tobacco e-Cigarette/Vaping Use: Never Used Second Hand Smoke Exposure: No Use of substances other than those prescribed or required for medical reasons: No Have you been hit, kicked, punched, or otherwise hurt by someone within the past year? 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 Current occupational exposures/hazards: No Cognitive needs: No Hearing needs: No Vision needs: No Meds Allergies Allergy/AdvReac Type Severity Reaction Status Date / Time Seasonal Allergies Allergy Intermediate Itchy Eyes Verified 01/02/25 07:05 ferrous sulfate AdvReac Intermediate Stomach Verified 01/02/25 07:05 Upset Home Medications ?Medication ?Instructions ?Recorded ?Confirmed ?Last Taken ?Type multivitamin 1 tab PO DAILY 09/01/24 12/28/24 Unknown History Exam Height,Weight and Vital Signs: Height 5 ft 4 in Weight 68.663 kg Assessment and Plan Assessment Anesthesia Assessment: Chart Reviewed Documented by User: Horace Trujillo MD 01/02/25 07:42 [facility] Past Medical History Medical History (Updated 12/28/24 @ 13:53 by Marion Silver RN) Gestational diabetes Pre-diabetes ADHD (attention deficit hyperactivity disorder) Anxiety and depression Iron deficiency anemia Macular degeneration Hepatitis C Family History Family History Father Depression Mental health disorder Mother Depression HTN (hypertension) Mental health disorder Brother No problems noted. Brother No problems noted. Brother No problems noted. Sister No problems noted. Son No problems noted. Son No problems noted. Family history of problems with anesthesia: No Surgical History Surgical History (Updated 12/28/24 @ 13:54 by Marion Silver RN) History of tubal ligation History of Problems with Anesthesia: No Social History Social History Housing: House Are you a primary healthcare administrative assistant to a significant other at home: No Do you presently have visiting nurse or other home services: No Alcohol intake: never Patient Tobacco Use Status: Never used Tobacco e-Cigarette/Vaping Use: Never Used Second Hand Smoke Exposure: No Use of substances other than those prescribed or required for medical reasons: No Have you been hit, kicked, punched, or otherwise hurt by someone within the past year? 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 Current occupational exposures/hazards: No Cognitive needs: No Hearing needs: No Vision needs: No Meds Allergies Allergy/AdvReac Type Severity Reaction Status Date / Time Seasonal Allergies Allergy Intermediate Itchy Eyes Verified 01/02/25 07:05 ferrous sulfate AdvReac Intermediate Stomach Verified 01/02/25 07:05 Upset Home Medications ?Medication ?Instructions ?Recorded ?Confirmed ?Last Taken ?Type multivitamin 1 tab PO DAILY 09/01/24 12/28/24 Unknown History Exam Airway Mallampati Class: I TM Dist: >3cm Neck ROM: Full Loose/Missing/Broken Teeth: No Heart: ok Lungs: ok Assessment and Plan Assessment Anesthesia Assessment: Anesthesia Plan Discussed Final Anesthetic Review Family History of Problems with Anesthesia: No History of Problems with Anesthesia: No NPO: Yes ASA Class: II Final Preanesthetic Review: No Changes in Pt Med Stat, Meds/Allgs Chart Reviewed, Consent Obtained/Reviewed and Anes Risks/Benef Reviewed Patient Risk: Low Procedure Risk: Low Anesthetic Plan Anesthetic Plan: MAC: and Agree w/ Assess. and Plan Disposition: Standard PACU
--- NOTE | 2025-01-02 06:38 | P.HPSUR_ITS ---
Pre-Procedural Eval Section A - 24 Hr Update-Section A only Date of Service: 01/02/25 Section B - Complete if H&P > 30 days Chief Complaint: Encounter for screening for malignant neoplasm of Relevant Family History (Specify if Yes): No Relevant Social History: None Present Medications: see Short Stay Collaborative assessment Medical History: Significant History (Gestational diabetes Pre-diabetes ADHD ( attention deficit hyperactivity disorder) Anxiety and depression Iron deficiency anemia Macular degeneration Hepatitis C) History of Previous Operations: Relevant previous surgery/procedure and date(s) ( History of tubal ligation) Allergies: Allergies Allergy/AdvReac Type Severity Reaction Status Date / Time Seasonal Allergies Allergy Intermediate Itchy Eyes Verified 11/22/24 14:07 ferrous sulfate AdvReac Intermediate Stomach Verified 11/22/24 14:07 Upset F Review of Systems Sugical H&P ROS: Negative: Constitution, Cardiovascular, Respiratory, Neurological, Psychiatric, Hem-Onc, Allergic/Immunologic, Gastrointestinal, Genitourinary, Musculoskeletal, Integumentary, Endocrine and Eyes/Ears/Nose/Throat Exam Surgical H&P Exam: Normal: HEENT, Normal: Heart, Normal: Lungs, Normal: Extremities, Normal: Abdomen, Normal: Skin and Normal: Neurological Plan Diagnosis/Plan: Unchanged I have reviewed the history and physical and performed a pertinent physical examination on my patient. No changes have occurred unless specified. Time Spent With Patient Time: Total time managing care of this patient today ____ minutes.
[2025-01-02 07:12] VITALS: BP 114/70; PULSE 65; RESP 16; TEMP 36.6; O2SAT 97; BMI 24.9
[2025-01-02] MEDS: Lactated Ringers 1,000 ML 100 ML IVCONT (07:21)
--- NOTE | 2025-01-02 08:05 | P.OPN-COLO_ITS ---
Colonoscopy Operative Note Operative Note Date of Service: 01/02/25 Narrative: Operative Information Procedure Description: Colonoscopy Indication: screening Anesthesia: MAC COLONOSCOPY Instrument: Olympus variable stiffness pediatric scope 190L Colonoscopy Monitoring: Vital signs and clinical assessment, continuous EKG monitoring, Pulse oximetry, Carbon Dioxide monitoring and blood pressure monitoring were done throughout the procedure. Colon withdrawal time was 12 minutes. Procedure: The patient was placed in the left lateral decubitis position and pre-procedure medications were administered. After a digital rectal examination of the ano-rectum, the video colonoscope was inserted into the rectum and advanced through the colon to the cecum/TI. The colonoscope was slowly withdrawn in a retrograde panoramic fashion and the colon mucosa was carefully examined including a retroflexed view of the rectum. Findings and interventions are described below. Procedure Difficulty: easy Findings: Terminal Ileum-normal Cecum:normal Ascending Colon: normal Transverse Colon -normal Descending Colon:normal Sigmoid Colon: normal Rectum: Retroflexion with small internal hemorrhoids seen, grade I, 9-10 mm sessile polyp removed with cold snare Anorectum - normal Intervention: cold snare Colon preparation: [place] Bowel Preparation Scale Right colon; 2 Transverse colon: 2 Left colon; 2 (0 = Unprepared colon segment with mucosa not seen due to solid stool that cannot be cleared. 1 = Portion of mucosa of the colon segment seen, but other areas of the colon segment not well seen due to staining, residual stool and/or opaque liquid. 2 = Minor amount of residual staining, small fragments of stool and/or opaque liquid, but mucosa of colon segment seen well. 3 = Entire mucosa of colon segment seen well with no residual staining, small fragments of stool or opaque liquid) Impression and Post Procedure Diagnosis: colon polyp internal hemorrhoids Plan: High fiber diet leaflet Avoid straining at stool, epsom salts and sitz bath, anusol supps or cream Repeat Colonoscopy in 5-6 years due to adenomatous appearing polyp by pit pattern or earlier if clinically indicated Above findings were reviewed with the patient and relevant handouts were provided if indicated.
[2025-01-02 08:12] VITALS: BP 92/43; PULSE 65; RESP 16; TEMP 36.4; O2SAT 97
[2025-01-02 08:27] VITALS: BP 99/55; PULSE 58; RESP 18; TEMP 36.6; O2SAT 99
== END 2025-01-02 08:41 | disposition home or self-care (01) ==
PROVIDERS: PCP Family Medicine; Visit Provider Internal Medicine Gastroenterology
PROC: 0DJD8ZZ Inspection of Lower Intestinal Tract, Via Natural or Artificial Opening Endoscopic (ICD-10-PCS; CPT 45378; principal; 2025-01-02 07:30)
DX: Z12.11 Encounter for screening for malignant neoplasm of colon (principal); D12.8 Benign neoplasm of rectum; K64.0 First degree hemorrhoids; R73.03 Prediabetes; D50.9 Iron deficiency anemia, unspecified; F41.9 Anxiety disorder, unspecified; F90.9 Attention-deficit hyperactivity disorder, unspecified type; E05.00 Thyrotoxicosis with diffuse goiter without thyrotoxic crisis or storm; J30.2 Other seasonal allergic rhinitis; H35.30 Unspecified macular degeneration; N84.1 Polyp of cervix uteri; N95.1 Menopausal and female climacteric states; Z86.19 Personal history of other infectious and parasitic diseases; Z79.899 Other long term (current) drug therapy; Z88.8 Allergy status to other drugs, medicaments and biological substances; Z98.51 Tubal ligation status
CPT/HCPCS: 45385; 88305; J2003; J2704

== ENCOUNTER → 2025-01-02 06:16 | Outpatient (BNV) | payer OTHER, SELFPAY | PROVIDERS: PCP Family Medicine; Visit Provider Internal Medicine Gastroenterology | DX: Z12.11 Encounter for screening for malignant neoplasm of colon (principal); D12.8 Benign neoplasm of rectum; K64.0 First degree hemorrhoids | CPT/HCPCS: 45385 ==

== ENCOUNTER 2025-01-02 13:37 | Outpatient (AMB) | payer OTHER, SELFPAY ==
--- NOTE | 2025-01-02 13:44 | MHC.OFFVIS ---
Vital Signs 01/02/25 13:48 Height 5 ft 4 in Weight 146 lb BMI 25.1 BP 100/70 Intake Visit Reasons: New patient annual Intake Note: Per patient last pap smear x5 years ago, normal. No hx of abnormal paps. Last mammo x2 years ago, normal. Gas Blender: Gas Blender Present (Allyson) Accompanied by: Self / Same As Patient Allergies Seasonal Allergies Allergy (Intermediate, Verified 01/02/25 13:47) Itchy Eyes ferrous sulfate Adverse Reaction (Intermediate, Verified 01/02/25 13:47) Stomach Upset Is last menstrual period known: Yes Last menstrual period: 12/19/24 Patient : No HPI Comments Details: She is a premenopausal woman presenting for new patient annual examination. Doing well with no airway controller concerns. 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 Currently is sexuallly active with . She denies vaginal itching and irritation. STI screening offered; she declines. She tries to eat healthy and stays active with exercise. Denies family history of breast, ovarian or colon cancer. Last pap smear- years ago, negative. Mammogram: not up date. She reports she has a known enlarged thyroid, additionally she reports she was exposed near the [place] incident. [facility] Medical History (Updated 01/02/25 @ 14:17 by Fatmata Melendez CNM) Radiation effect Gestational diabetes Pre-diabetes ADHD (attention deficit hyperactivity disorder) Anxiety and depression Iron deficiency anemia Macular degeneration Hepatitis C Surgical History (Updated 12/28/24 @ 13:54 by Marion Silver RN) History of tubal ligation Family History Father Depression Mental health disorder Mother Depression HTN (hypertension) Mental health disorder Brother No problems noted. Brother No problems noted. Brother No problems noted. Sister No problems noted. Son No problems noted. Son No problems noted. 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 Current occupational exposures/hazards: No Cognitive needs: No Hearing needs: No Vision needs: No Female Reproductive History Menstrual Age of Menarche: 15 Duration of menses: 3-5 days Date of last menstrual period: 12/19/24 Total pregnancies: 3 Full term: 2 Ab spontaneous: 1 Review of Systems Const All systems reviewed & are unremarkable except as noted in HPI and below Reports as per HPI Eyes Reports no additional complaints ENT Reports no additional complaints Card Reports no additional complaints Resp Reports no additional complaints GI Reports as per HPI and Reports no additional complaints Reports as per HPI Musc Reports no additional complaints Skin/Breast Reports as per HPI Neuro Reports no additional complaints Psych Reports no additional complaints Endo Reports no additional complaints Kedar/Lymph Reports no additional complaints Aller/Immun Reports no additional complaints Physical Exam Vital Signs: Last Vital Signs BP 100/70 01/02/25 13:48 BMI result Body Mass Index 25.1 Const General: cooperative, healthy appearing, no acute distress, well developed and alert Orientation/consciousness: patient oriented x3 HEENT Head: Yes normal to inspection Eyes General: appearance normal, both eyes and all related structures Neck Neck: Yes normal visual inspection Thyroid: diffusely enlarged Chest Chest palpation & inspection: normal inspection of the chest and other (no puckering, dimpling, peau de orange, retraction, discharge, masses) Breast/axilla inspection: normal inspection of the breasts Breast/axilla palpation: normal palpation of the breasts Resp Effort & Inspection: normal respiratory effort GI Inspection: Yes normal to inspection Palpation (GI): Soft to palpation Rectal Exam - Female: deferred General: Yes bladder normal to palpation External Female Exam: normal external appearance and normal appearance of the urethra Speculum Exam - Vagina: normal appearance of the vagina, normal palpation and normal vaginal discharge Speculum Exam - Cervix: normal appearance of the cervix, normal palpation and Cervical mass present (Polyp like, bled with Pap) pedunculated Bimanual exam- vagina & uterus: normal bimanual exam, normal palpation, uterine size normal, bladder normal to palpation, normal palpation and non-tender Bimanual Exam- Adnexa, other: no masses Skin General skin exam: no rashes or lesions noted Rashes: no rashes Neuro General: patient oriented x3 Cognition (Neuro): normal cognition Extrem General: Yes normal to inspection Psych Attitude: cooperative Thought process: Normal thought process present Assessment & Plan Assessment & Plan (1) Encounter for well woman exam with routine gynecological exam: Code(s): Z01.419 - Encounter for gynecological examination (general) (routine) without abnormal findings Category: Medical Plan: Discussed: Current recommendations for pap smears per ASCCP guidelines. Breast awareness and periodic breast exams. Mammogram yearly. Orders placed today. Maintain a healthy lifestyle including a well balanced diet and routine exercise. Use condoms for STI and prevention. Patient verbalizes understanding and agrees to the plan of care. She was given opportunity to ask questions and all questions were answered to the best of my ability. RTO in one year for annual airway controller examination. Advised to talk to her provider about a thyroid concerns and exposure at next visit. Total time I personally spent on visit and management today: 5?minutes. Time spent included review of pertinent office notes in the electronic health record; review of laboratory and imaging results; review of personal family medical history; discussing diagnosis and plan of care with the patient; documenting the encounter in the EMR. This note is constructed using voice recognition software. While every effort has been made to ensure accuracy, [employer] errors may have been included. (2) Pap smear for cervical cancer screening: Code(s): Z12.4 - Encounter for screening for malignant neoplasm of cervix Category: Medical Plan: Smear obtained. (3) Perimenopausal: Code(s): N95.1 - Menopausal and female climacteric states Category: Medical Plan: Monitor menstrual cycles, report any unscheduled bleeding, bleeding episodes <24 days apart or heavy/prolonged menstrual bleeding. Call the office for a follow up for any concerns. (4) Cervical polyp: Code(s): N84.1 - Polyp of cervix uteri Plan: Discussed polyp findings, recommended polypectomy for removal in evaluation. Patient to schedule appointment before leaving the office. Orders: Orders MM tomosynthesis screening BI Today Z12.31 - Encounter for screening mammogram for malignant neoplasm of breast HPV High risk Today Z01.419 - Encounter for gynecological examination (general) (routine) without abnormal findings Pap Smear Today Z01.419 - Encounter for gynecological examination (general) (routine) without abnormal findings Coding Level of Care Code New Pt Prev Care 40-64y([id number]) Diagnoses Encounter for well woman exam with routine gynecological exam Z01.419 Pap smear for cervical cancer screening Z12.4 Perimenopausal N95.1 Cervical polyp N84.1
[2025-01-02 13:48] VITALS: BP 100/70; BMI 25.1
== END 2025-01-02 14:18 | disposition home or self-care (01) ==
PROVIDERS: Visit Provider Advanced Practice Midwife
DX: Z01.419 Encounter for gynecological examination (general) (routine) without abnormal findings (principal); N95.1 Menopausal and female climacteric states; N84.1 Polyp of cervix uteri
CPT/HCPCS: 99386; 99459

== ENCOUNTER 2025-01-02 14:18 | Outpatient (REF) | payer OTHER, SELFPAY ==
[2025-01-08 14:42] LABS: HPV Genotype 16 Negative (Negative); HPV Genotype 18 Negative (Negative); HPV High Risk Negative (Negative)
== END 2025-01-02 14:19 | disposition home or self-care (01) ==
LOC: HO.LNP 14:18
PROVIDERS: Visit Provider Advanced Practice Midwife
DX: Z01.419 Encounter for gynecological examination (general) (routine) without abnormal findings (principal); Z11.51 Encounter for screening for human papillomavirus (HPV)
CPT/HCPCS: 87626; 88175

== ENCOUNTER 2025-01-03 08:55 | Outpatient (REF) | payer OTHER, SELFPAY | END 2025-01-03 08:56 | disposition home or self-care (01) | LOC: HO.MAMMO 08:55 | PROVIDERS: PCP Family Medicine; Visit Provider Advanced Practice Midwife | DX: Z12.31 Encounter for screening mammogram for malignant neoplasm of breast (principal) | CPT/HCPCS: 77063; 77067 ==

== ENCOUNTER → 2025-01-03 09:00 | Outpatient (BNV) | payer OTHER, SELFPAY | PROVIDERS: PCP Family Medicine; Visit Provider Internal Medicine | DX: Z12.31 Encounter for screening mammogram for malignant neoplasm of breast (principal) | CPT/HCPCS: 77063; 77067 ==

== ENCOUNTER 2025-02-08 13:20 | Outpatient (REF) | payer OTHER, SELFPAY ==
[2025-02-08 17:01] LABS: Bacterial Vaginosis PCR NEGATIVE (Negative); Candida Group PCR NOT DETECTED (Not Detect); Candida glab krusei PCR NOT DETECTED (Not Detect); Trichomonas vaginalis PCR NOT DETECTED (Not Detect)
== END 2025-02-08 13:21 | disposition home or self-care (01) ==
LOC: HO.LAB 13:20
PROVIDERS: PCP Family Medicine; Visit Provider Advanced Practice Midwife
DX: N84.1 Polyp of cervix uteri (principal); R10.2 Pelvic and perineal pain
CPT/HCPCS: 57500; 81003; 81025; 81515

== ENCOUNTER 2025-02-08 13:20 | Outpatient (AMB) | payer OTHER, SELFPAY ==
--- NOTE | 2025-02-08 13:31 | A.OFFVIS_ITS ---
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 She reports pelvic cramping since her colonoscopy. Denies any abnormal discharge or urinary symptoms. Reports regular cycles. [facility] Medical History (Updated 02/08/25 @ 14:05 by Fatmata Melendez CNM) Pelvic cramping Radiation effect Gestational diabetes Pre-diabetes ADHD (attention deficit hyperactivity disorder) Anxiety and depression Iron deficiency anemia Macular degeneration Hepatitis C Surgical History (Updated 12/28/24 @ 13:54 by Marion Silver RN) History of tubal ligation Family History Father Depression Mental health disorder Mother Depression HTN (hypertension) Mental health disorder Brother No problems noted. Brother No problems noted. Brother No problems noted. Sister No problems noted. Son No problems noted. Son No problems noted. 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 Current occupational exposures/hazards: No Cognitive needs: No Hearing needs: No Vision needs: No Female Reproductive History Menstrual Age of Menarche: 15 Date of last menstrual period: 12/19/24 Review of Systems Const All systems reviewed & are unremarkable except as noted in HPI and below Physical Exam Vital Signs: Last Vital Signs BP 112/70 02/08/25 13:39 Const General: cooperative, healthy appearing and no acute distress Orientation/consciousness: patient oriented x3 GI Inspection: Yes normal to inspection Palpation (GI): Soft to palpation and Other GI palpation findings present (Nontender) Rectal Exam - Female: visual inspection normal General: Yes bladder normal to palpation External Female Exam: normal appearance of the urethra Speculum Exam - Vagina: normal appearance of the vagina, normal palpation and normal vaginal discharge Speculum Exam - Cervix: normal appearance of the cervix, normal palpation and Cervical mass present (Polyp) pedunculated Bimanual exam- vagina & uterus: normal bimanual exam, normal palpation, uterine size normal, bladder normal to palpation, normal palpation, uterine shape normal and non-tender Bimanual Exam- Adnexa, other: normal adnexae Neuro General: patient oriented x3 Office Procedures Cervical Polypectomy Details Details: Consent for Cervical Polypectomy procedure: The patient is here today for an Cervical Polypectomy. She was counseled regarding anticipatory guidance for the procedure including the risks for pain, infection, bleeding, perforation, potential injury to the tissues may include the cervix, vagina, uterus, tubes, bladder and bowels. These injuries may include further treatment and evaluation including surgery, blood transfusions, antibiotics, hospitalizations and anesthesia. Permanent injury and scarring can occur. She was consented for the procedure, and the consent forms were signed. She is agreeable to have the procedure today. All questions were answered. Polypectomy Procedure: The patient was placed in the dorsal lithotomy position and a sterile speculum inserted. Using aseptic technique for the procedure. The cervix was cleansed with Betadine x 3 swabs. The polyp was grasped with a curved Alessia and with gentle twisting removed. The tissue sample was placed in formalin in a patient labeled container by staff assisting and sent to the pathology department for processing and interpretation. Hemostasis with direct pressure and application of Monsel's. Minimal bleeding was observed.The patient tolerate the procedure well and was in good condition when leaving the department. Post Polypectomy Care: There may be some bleeding for several days that is usually light and can turn to a light brown or pink in color. Mild cramping may occur. Nothing in the vagina including: tampons, douching or intimacy for a week. You may take an over the counter mild analgesia like Tylenol or Advil (if no allergies), per the manufacturers recommendations on dosing and frequency. Follow the directions completely. Call the office if any: fever (over 100.4), flu like symptoms, abdominal pain, worsening cramping not resolved with over the counter medications, foul smelling vaginal odor, signs of infected appearing discharge, or heavy bleeding. A follow up for results on the pathology will be made. Please call the office if you have any concerns. This note is constructed using voice recognition software. While every effort has been made to ensure accuracy, body make up artist errors may have been included. CPT: 88641 - Cervical Polypectomy All charges added?: Procedure code (CPT) selection complete Results AMB Test Urine AMB Test Urine Negative Last Edit by JHOAN Soto on 02/08/25 13:41 AMB Urinalysis, Automated UA Leukoctes 0 Abel/uL Last Edit by Sarai Mcdonough [facility] on 02/08/25 14:32 UA Nitrite Negative Last Edit by Sarai Mcdonough [facility] on 02/08/25 14:32 UA Urobilinogen 0 mg/dL Last Edit by Sarai Mcdonough [facility] on 02/08/25 14:3 2 UA Protein 0 mg/dL Last Edit by Sarai Mcdonough [facility] on 02/08/25 14:32 UA pH 6.0 Last Edit by Sarai Mcdonough [facility] on 02/08/25 14:32 UA Blood 0 Manny/uL Last Edit by Sarai Mcdonough [facility] on 02/08/25 14:32 UA Specific Reasnor 1.015 Last Edit by Sarai Mcdonough [facility] on 02/08/25 14:32 UA Ketone Negative Last Edit by Sarai Mcdonough [facility] on 02/08/25 14:32 UA Bilirubin 0 mg/dL Last Edit by Sarai Mcdonough [facility] on 02/08/25 14:32 UA Glucose 0 mg/dL Last Edit by Sarai Mcdonough [facility] on 02/08/25 14:32 Results Reviewed Results Reviewed: Laboratory Last Values [facility]st Clinic Negative 02/08/25 13:41 Assessment & Plan Assessment & Plan (1) Cervical polyp: Code(s): N84.1 - Polyp of cervix uteri Plan: See polypectomy procedure. (2) Pelvic cramping: Code(s): R10.2 - Pelvic and perineal pain Category: Medical Plan: Total time I personally spent on visit and management today: ?10 minutes. Time spent included review of pertinent office notes in the electronic health record; review of laboratory and imaging results; review of personal family medical history; performing physical exam; discussing diagnosis and plan of care with the patient; documenting the encounter in the EMR. Plan Plan of care, BV panel, UA, an ultrasound of the pelvis. Follow up pending ultrasound results. The patient expressed understanding and agreement with the plan of care. All of her questions and concerns were addressed to the best of my ability. This note is constructed using voice recognition software. While every effort has been made to ensure accuracy, body make up artist errors may have been included. Orders: Orders Bacterial Vaginosis Panel Today R10.2 - Pelvic and perineal pain Surgical Today N84.1 - Polyp of cervix uteri, N93.9 - Abnormal uterine and vaginal bleeding, unspecified AMB HCG Urine Test Today Z32.02 - Encounter for test, result negative US pelvic and transvaginal Today R10.2 - Pelvic and perineal pain Coding Level of Care Code Est Pt Level 2 (78278) Procedure Only Diagnoses Cervical polyp N84.1 Pelvic cramping R10.2 CPT Codes Details - CPT: 08235 - Cervical Polypectomy ([id number])
[2025-02-08 13:39] VITALS: BP 112/70
--- OUTSIDE RECORDS SUMMARY | 2025-02-08 16:31 | XMS_ITS | Continuity of Care Document ---
Author Organization [facility] Address [address] [place] [address] [place] [address] Phone Care Team Providers Care Crane Helper Name Role Phone Amanda Andrade MD Unavailable [...] - Active Procedures Procedure Date OFFICE/OUTPATIENT VISIT, [facility] Advance Directives Directive Yes / No Effective Date File Name No Information Encounters Encounter Description Practice Location Reason(s) For Visit Diagnoses Date Provider Providers Copied on Encounter OFFICE/OUTPAT IENT VISIT, [facility], [address] [place], [address], tel:[phone] rash (chief complaint) Seborrheic dermatitis, unspecified [address] Patel. [address] [place], [place], [id number]. tel:[phone] Family History Family Member Type Diagnosis Age At Onset No Information Payers Payer name Insurance type Covered republican ID Leni loo(s) [facility] [id number] Social History Type Description Quantity Date Captured [...] Mental Status Date Cognitive Assessment Orientation - Wells ed to time, place, person, situation. Patient Care Teams Name Effective Dates (start - stop) Status Members No Information
--- OUTSIDE RECORDS SUMMARY | 2025-02-08 16:31 | XMS_ITS | Data Portability ---
Author Organization [facility] pecialistsYESENIA Noel [facility] - [facility] Address [address] [facility] [address] [place] [address] Care Team Providers Care Manager Intermediate Name Role Phone ROSE VELÁSQUEZ Primary Care Provider [phone] Assessment No assessment recorded. Plan of Treatment Reminders Order Date Submit Date Provider Last Modified By Organization Details Last Modified Time Details Appointments None recorded. Lab None recorded. Referral None recorded. Procedures None recorded. Surgeries None recorded. Imaging None recorded. Medication Orders Lotrisone 1 %-0.05 % topical cream 2018 019 [facility] [id number], [address] [place], [address], 9 14:17:46 Lotrisone 1 %-0.05 % topical cream 2017 018 INTERFACE [facility] [id number], [address] [place], [address], 8 16:52:27 Lotrisone 1 %-0.05 % topical cream 2017 018 INTERFACE [facility] [id number], [address] [place], [address], 8 13:31:26 Patient TargetsNo targets recorded. Patient InstructionsNo instructions recorded. Reason for Referral None Reported. Results Created Date Observation Date Name Description Value Unit Range Abnormal Flag Note LastModifiedBy Organization Detail LastModifiedTime 04/21/20 18 04/21/2018 dimitrios armijo Right Not Available [facility] - [address], [place], [address], 04/21/2018 15:39:22 04/21/20 18 04/21/2018 dimitrios armijo Left Type A Normal Not Available [place] - [address], [place], [address], 04/21/2018 15:39:22 04/21/20 18 04/21/2018 audio gram Results: See Lin tate Result s Not Available [place] - [address], [place], [address], 04/21/2018 15:39:24 04/21/20 18 audio gram No observ ation record ed. BARCODE Not Available 2017 16:10:37 Result Notes None recorded. Problems No Known Problems Procedures Surgical History Date Name Laterality Status Provider Name and Address Organization Details Recorded Time 9 Cerumen removal with microscope 30874 completed Luigi Barone MD [address] [facility] [address], [place], [address], [facility]. 03/31/2019 14:19:23 8 Cerumen removal with microscope 25511 completed LUCÍA CHAVEZ [facility]. 03/09/2018 16:41:03 7 Cerumen removal without microscope 75404 completed Elsie Ortega [facility]. 10/05/2017 13:17:31 7 Cerumen removal with microscope 86496 completed Elsie Ortega [facility]. 10/05/2017 13:17:31 Imaging Results Imaging Date Name Status LastModified by Organiz ation Details LastModified Time 04/21/2018 audiogram completed BARCODE Information no t available 04/21/2018 16:10:37 Procedure Notes None recorded. Medical Equipment None Reported. Allergies No known drug allergies Medications Name Sig Start Date Stop Date Status Note LastModified by Organization Details LastModified Time triamcinolo ne acetonide 0.5 % topical cream APPLY A THIN LAYER TO THE AFFECTED AREA(S) BY TOPICAL ROUTE 2 TIMES PER DAY x 10d 04/27 completed Not Available Not Available Not Available Lotrisone 1 %-0.05 % topical cream APPLY TO THE AFFECTED AND SURROUNDI NG AREAS OF SKIN BY TOPICAL ROUTE 2 TIMES PER DAY IN THE MORNING AND EVENING FOR 7 DAYS 2018 active Not Available Not Available Not Avai lable Keflex 500 mg capsule Take 1 capsule twice a day by oral route with meals for 10 days. 03/09 completed Not Available Not Available Not Available dextroamphe tamine-amph etamine 10 mg tablet active Not Available Not Available No t Available triamcinolo ne acetonide 0.1 % topical cream 04/27 completed Not Available Not Available Not Available ofloxacin 0.3 % ear drops 04/27 completed Not Available Not Available Not Available amoxicillin 875 mg tablet 04/27 completed Not Available Not Available Not Available clotrimazol e 1 % topical solution APPLY TO THE AFFECTED AND SURROUNDI NG AREAS OF SKIN BY TOPICAL ROUTE 2 TIMES PER DAY IN THE MORNING AND EVENING 04/27 completed Not Available Not Available Not Available mupirocin 2 % topical ointment APPLY A SMALL AMOUNT TO THE AFFECTED AREA BY TOPICAL ROUTE 3 TIMES PER DAY w qtip 04/27 completed Not Available Not Available Not Available neomycin-po lymyxin-hyd rocort 3.5 mg-10,000 unit/mL-1 % ear drops,susp INSTILL 4 DROPS INTO AFFECTED EAR(S) BY OTIC ROUTE 3 TIMES PER DAY x 10d 04/27 completed Not Available Not Available Not Available Ciprodex 0.3 %-0.1 % ear drops,suspe nsion Instill 5 drops twice a day by otic route for 7 days. 05/24 completed Not Available Not Available Not Available bupropion HCl XL 150 mg 24 hr tablet, extended release 10/05 completed Not Available Not Available Not Available Fluzone Quad 2017(PF) 60 mcg(15 mcgx4)/0.5 mL intramuscul ar syringe 10/05 completed Not Available Not Available Not Available Vitals Date Recorded Body height Body mass index (BMI) Body weight Heart rate Respiratory rate Body temperature Systolic blood pressure Diastolic blood pressure Provider Name and Address Organization Details Last Updated DateTime 8 162.56 cm 23.2 kg/m2 73372.9 7 g 76 /min 14 /min 98.9 [degF] 118 mm[Hg] 79 mm[Hg] MADALYN DUBOIS [facility]. 8 15:35:18 Date Recorded Body height Heart rate Body mass index (BMI) Body weight Body temperature Systolic blood pressure Diastolic blood pressure Provider Name and Address Organization Details Last Updated DateTime 8 162.56 cm 78 /min 23.2 kg/m2 63436.9 7 g 97.5 [degF] 110 mm[Hg] 70 mm[Hg] Kar Boone [facility]. 8 15:46:38 Date Recorded Body height Body mass index (BMI) Body weight Heart rate Body temperature Systolic blood pressure Diastolic blood pressure Provider Name and Address Organization Details Last Updated DateTime 8 162.56 cm 23.2 kg/m2 66147.9 7 g 88 /min 99.2 [degF] 125 mm[Hg] 74 mm[Hg] AILYN SCHULTZ [facility]. 8 13:23:18 Date Recorded Body height Body mass index (BMI) Body weight Heart rate Body temperature Systolic blood pressure Diastolic blood pressure Provider Name and Address Organization Details Last Updated DateTime 8 162.56 cm 23.2 kg/m2 51108.9 7 g 85 /min 99.3 [degF] 108 mm[Hg] 68 mm[Hg] Xi Perry [facility]. 8 16:31:53 Date Recorded Body height Body mass index (BMI) Body weight Heart rate Body temperature Systolic blood pressure Diastolic blood pressure Provider Name and Address Organization Details Last Updated DateTime 9 162.56 cm 23.2 kg/m2 49473.9 7 g 79 /min 99.4 [degF] 103 mm[Hg] 70 mm[Hg] KRYSTIAN TALBOT [facility]. 9 13:37:34 Social History Question Answer Notes LastModified by Organizat ion Details LastModified Time Tobacco Smoking Status Never Smoker [facility] [place] - [facility]. 04/27/2018 15:49:24 What Is Your Level Of Alcohol Consumption? None Information not available 04/27/2018 What Is Your Level Of Caffeine Consumption? Heavy Information not available 04/27/2018 How Much Tobacco Do You Chew? None [email or web address] Information not available 04/19/2018 Which Illicit Or Recreational Drugs Have You Used? None Information not available 04/27/2018 International Travel None Information not available 04/27/2018 What Was The Date Of Your Most Recent Tobacco Screening? 06/15/2018 Information not available 06/07/2019 Do You Have Any Pets? Yes Information not available 04/27/2018 Sex: Unknown Functional Status None recorded. Mental Status None recorded. Family History Relationship Description Onset Age of this Age Resolved Age Notes LastModified by Organization Details LastModified Time Father No current problems or disability [email or web address] Not available 10/05 13:19:52 Mother No current problems or disability [email or web address] Not available 10/05 13:19:52 Medical History No medical history recorded. Gynecological HistoryNo gynecological history recorded. Obstetrics History GPAL:G 0 P 0 0 0 0 Past Encounters Encounter ID Performer Location Encounter Start Date Encounter Closed Date Diagnosis/Indication Diagnosis SNOMED-CT Code Diagnosis ICD10 Code Diagnosis Note [id number] Omar Stanton MD [facility] - [address] [facility] [address] [place] [address] 10/05/2017 12:32:13 10/05/2017 14:08:35 Fissure in skin 06900345 R23.4 AD. impetigo with mild cellulitis component surroundin g fissure. strict digital precaution s. alternate TAC and Bacitracin topically BID-TID each. good technique as advised w qtip. gently. f/u 7-10 days w audio and recheck to ensure resolution . pt feels hearing may be less than normal in contralate ral ear at times. 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 h20 ? & digital prec. Acute ecze matoid otitis externa 42218865 H60.549 Acute otitis externa 302 83797 H60.501 [id number] Luigi Barone MD [facility] [address] [facility] [address] [place] [address] 03/09/2018 16:01:33 03/09/2018 16:49:51 Impacted cerumen of bilateral ears 3383898739 207314 H61.23 All wax removed under microscope with relief Candidal o titis externa 34754335 B37.84 Left side. Nystatin powder sprayed. [id number] Luigi Barone MD [facility] [address] [address] 03/21/2018 16:34:58 03/21/2018 17:23:23 Otalgia of right ear 6747380939 832300 H92.01 Left side Candidal o titis externa 32448940 B37.84 Left side. Nystatin powder sprayed. [id number] MD [place] - [address] [place] [address] 04/19/2018 14:50:55 04/19/2018 15:21:56 Diffuse otitis externa 47984351 H60.311 Keep ear dry [id number] Vikas Hahn MD [facility] [address] [address] 04/21/2018 14:54:40 04/21/2018 15:50:59 Diffuse otitis externa 80442935 H60.311 Keep ear dry [id number] ABIODUN TERESA [facility] [address] [address] 04/21/2018 14:56:11 04/21/2018 15:49:03 Unilateral conductive hearing loss with unrestricted hearing on the contralateral side 326604592 H90.11 [id number] MD [place] - [address] [place] [address] 04/27/2018 15:35:49 04/27/2018 16:09:18 Diffuse otitis externa 92658179 H60.311 Much improved. Keep ear dry Vinegar/ET OH irrigation as discussed. [id number] MD [place] - [address] [facility] [address] [place] [address] 05/24/2018 13:17:47 05/24/2018 13:33:54 Chronic otitis externa 88742253 H60.62 [id number] MD [place] - [address] [facility] [address] [place] [address] 06/15/2018 16:22:29 06/15/2018 16:55:27 Chronic otitis externa 80958050 H60.62 Much improved. [id number] Luigi Barone MD [facility] - [address] [place] [address] 03/31/2019 13:27:42 03/31/2019 14:25:13 Otitis externa 0547521 H60.90 Removed cerumen. No sign of infection. 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 Health Concerns Section Related Observation LastModified by Organization Detai ls LastModified Time None Recorded Concern Status LastModified by Organization Details LastModified Time None Recorded Advance Directives Directive None Recorded Payers Encounter Date Sequence Insurance Name Policy Number Policy [place] Covered Member ID [place] Member ID Guarantor Name 04/21/2018 1 [place] [facility]ENEF[facility] - BLUE OPEN ACCESS (O) [id number] [facility] 04/27/2018 1 [place] [facility] [employer] BENEFIT PLAN - BLUE OPEN ACCESS (HMO) [id number] [facility] 05/24/2018 1 [place] [facility] BENEFIT PLAN - BLUE OPEN ACCESS (O) [id number] [facility] 06/15/2018 1 [place] [facility] BENEFIT [facility] - BLUE OPEN ACCESS (O) [id number] [facility] 03/31/2019 1 *SELF PAY* In Critical access hospital Notes Date Note Type Note Provider Name and Address Organization Details Recorded Time 04/21/2018 text/html Ear Pain/InfectionReported bypatient.Location:ear ache right;discharge from the ears right Onset/Timing:no recent ear infections; initially started ago; progressively worse over last Duration:resolved Quality:no pain; no itching; no discharge from the ears Severity:no fever; does not limit daily activities; not interfering with work; not interfering with social activities; no difficulty understanding speech; does not require tv, radio at high volume; able to sleep during episode Alleviating factors:oral antibioticsNotes:Notes continued ear pain on right. Has been using dropsHearing LossReported bypatient.Onset/Timing :initially started 6months ago Location:loss of hearing bilateral;ringing in the ears occurring bilateral Quality:sounds distorted;sounds muffled Severity:difficulty hearing over background noise;requires TV, radio at high volume Alleviating factors:nothing gives relief Aggravating factors:nothing makes it worse Vikas Hahn MD [address] [place] [address],[facility] [address], [place], [address], [facility]. 04/21/2018 15:50:35 04/21/2018 text/html Right ear fullne ss, hearing loss, severe pain, outer pinna and inner ears. Recently treated for left ear infection. no concerns for left ear at today's visit. Occasional ringing of right ear. Patient denied active drainage, history of noise exposure, and dizziness. ABIODUN harris [facility]. 04/21/2018 15:40:53 04/27/2018 text/html Ear Pain/InfectionReported bypatient.Location:ear fullness bilateral;loss of hearing bilateral Quality:sharp pain;deep pain;itching;sounds distorted;sounds muffled Severity:interference with sleep Alleviating factors:ototopical antibiotics Aggravating factors:nothing makes it worseHearing LossReported bypatient.Location:los s of hearing bilateral Quality:sounds distorted;sounds muffled Severity:interference with sleep Alleviating factors:nothing gives relief Aggravating factors:nothing makes it worse Vikas Hahn MD [address] [place] [address],[facility] [address], [place], [address], [facility]. 04/28/2018 07:58:50 05/24/2018 text/html Ear Pain/InfectionReported bypatient.Location:ear fullness left;loss of hearing bilateral;ringing in the ears occurring bilateral Onset/Timing:recent ear infections Duration:ongoing fullness Quality:sharp pain;deep pain;itching;sounds distorted;sounds muffled Severity:interference with sleep Alleviating factors:ototopical antibiotics Ciprodex Aggravating factors:nothing makes it worseNotes:Notes pain and swelling around left ear over last weekHearing LossReported bypatient.Location:los s of hearing bilateral;ringing in the ears occurring bilateral Quality:sounds distorted;sounds muffled Duration:long standing Severity:interference with sleep Alleviating factors:nothing gives relief Aggravating factors:nothing makes it worse Vikas Hahn MD [facility] [address], [place], [address], [facility]. 05/24/2018 13:32:41 06/15/2018 text/html Ear FullnessRepo rted bypatient.Location:ear fullness left Onset/Timing:resolved fullness Duration:resolved drainage Quality:dull pain;sounds muffled Alleviating factors:Relief with Lotrisone creamNotes: Vikas Hahn MD [facility] [address], [place], [address], [facility]. 06/15/2018 16:52:27 03/31/2019 text/html Ear Pain/InfectionReported bypatient.Location:ear ache right Onset/Timing:initially started 2days ago Duration:ongoing Quality:no itching; no discharge from the ears;aching pain Severity:no fever; does not limit daily activities; not interfering with work; not interfering with social activities; no difficulty understanding speech; does not require tv, radio at high volume; able to sleep during episode Alleviating factors:nothing gives relief Aggravating factors:nothing makes it worse Associated Symptoms:baby seems to react to noises; child comprehends speech; speech seems appropriate for age; speech is on par with peers; no vertigo; no jaw popping or clicking; no temporomandibular joint disease; no nasal congestion; no nasal discharge Luigi Barone MD [address] [facility],[address], [place], [address], [facility]. 03/31/2019 14:35:00 OBGyn Episode No OBEpisode recorded.
== END 2025-02-08 14:23 | disposition home or self-care (01) ==
LOC: HO.HWS 13:20
PROVIDERS: PCP Family Medicine; Visit Provider Advanced Practice Midwife
DX: N84.1 Polyp of cervix uteri (principal); R10.2 Pelvic and perineal pain; Z32.02 Encounter for pregnancy test, result negative
CPT/HCPCS: 57500

== ENCOUNTER 2025-02-08 14:03 | Outpatient (REF) | payer OTHER, SELFPAY | END 2025-02-08 14:04 | disposition home or self-care (01) | LOC: HO.LNP 14:03 | PROVIDERS: Visit Provider Advanced Practice Midwife | DX: N93.9 Abnormal uterine and vaginal bleeding, unspecified (principal); N84.1 Polyp of cervix uteri | CPT/HCPCS: 88305 ==

== ENCOUNTER 2025-02-20 15:33 | Outpatient (AMB) | payer OTHER, SELFPAY ==
--- NOTE | 2025-02-20 16:08 | MHC.PC.OV ---
Vital Signs 02/20/25 16:14 Height 5 ft 4 in Weight 152 lb BMI 26.1 BP 106/74 Blood Pressure Location Lt brachial Position Sitting Respiration 12 Pulse 56 Pulse Source Pulse Oximeter Temp 98.2 F Temp Source Oral Pulse Oximetry (%) 99 Oxygen Delivery Method Room Air Intake Visit Reasons: 3 mos anxiety, depression, ADHD Intake Note: Three month follow up depression and anxiety. Infusion Pharmacist Required: No Allergies Seasonal Allergies Allergy (Intermediate, Verified 02/20/25 16:18) Itchy Eyes ferrous sulfate Adverse Reaction (Intermediate, Verified 02/20/25 16:18) Stomach Upset Medication List - Last Reconciled 02/20/25 by Salena Philippe CNP dextroamphetamine-amphetamine 10 mg (Adderall) 10 mg PO BID fluoxetine 20 mg PO DAILY 90 days multivitamin 1 tab PO DAILY Tobacco use date assessed: 02/20/25 Dental Screening Dental Screen Date: 11/21/24 HPI HPI Comments History of Present Illness Details 49-year-old female presents for anxiety, depression, and ADHD follow-up. She admits to taking fluoxetine and Adderall as prescribed without adverse reactions. He admits to making lifestyle changes, including diet and exercise. She denies unintentional weight loss, loss of appetite, or sleep disturbance. She offers no complaints and denies acute symptoms at this time. She requests blood work for hepatitis-C viral load due to history of hepatitis-C which was treated several years ago. [facility] Medical History (Updated 02/08/25 @ 14:05 by Fatmata Melendez CNM) Pelvic cramping Radiation effect Gestational diabetes Pre-diabetes ADHD (attention deficit hyperactivity disorder) Anxiety and depression Iron deficiency anemia Macular degeneration Hepatitis C Surgical History (Updated 12/28/24 @ 13:54 by Marion Silver RN) History of tubal ligation Family History Father Depression Mental health disorder Mother Depression HTN (hypertension) Mental health disorder Brother No problems noted. Brother No problems noted. Brother No problems noted. Sister No problems noted. Son No problems noted. Son No problems noted. 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 1. Little interest or pleasure in doing things: not at all 2. Feeling down, depressed, or hopeless: not at all 3. Trouble falling or staying asleep, or sleeping too much: not at all 4. Feeling tired or having little energy: not at all 5. Poor appetite or overeating: not at all 6. Feeling bad about yourself - or that you are a failure or have let yourself or your family down: not at all 7. Trouble concentrating on things, such as reading the newspaper or watching television: not at all 8. Moving or speaking so slowly that other people could have noticed. Or the opposite - being so fidgety or restless that you have been moving around a lot more than usual: not at all 9. Thoughts that you would be better off or of hurting yourself in some way: not at all Total score: 0 Depression Screening Interpretation: Negative Depression Screening Done: Yes 11906 - PHQ-9 Billing: Yes Source: Developed by Drs. Chepe Cortez, Xi Burrell, David Clarke and colleagues, with an educational deepali from [employer]. Thrive Questionnaire Date Thrive assessed: 02/20/25 I am a: Patient What is your living situation today?: I have a steady place to live Within the past 12 months, did the food you bought not last and you didn't have the money to get more?: Never true Within the past 12 months, did you worry whether your food would run out before you got money to buy more?: Never true Do you have trouble paying for medicines?: No Do you have trouble getting transportation to medical appointments?: No Do you have trouble paying your heating and electricity bill?: No Do you have trouble taking care of your child, family member or friend?: No Do you have trouble with day-to-day activities such as bathing, preparing meals, shopping, managing finances, etc.?: No Are you currently unemployed and looking for a job?: No Are you interested in more education?: No Please select the resources that you would like help with: None Currently or been in a relationship where the following occur: No concerns reported THRIVE Score: 0 AUDIT C Alcohol Use Questionnaire (AUDIT-C) 1. How often do you have a drink containing alcohol?: Never 3. How often do you have six or more drinks on one occasion?: Never Total Score: 0 CACHORRO-7 AMB Questionnaire CACHORRO-7 Date CACHORRO - 7 assessed: 02/20/25 Feeling nervous, anxious, or on edge: 1 = Several days Not being able to stop or control worryin = Not at all Worrying too much about different things: 1 = Several days Trouble relaxin = Several days Being so restless that it is hard to sit still: 0 = Not at all Becoming easily annoyed or irritable: 1 = Several days Feeling afraid as if something awful might happen: 0 = Not at all Total CACHORRO-7 score (0-4 normal; 5-9 mild; 10-14 moderate; 15-21 severe): 4 Source: Developed by Drs. Chepe Cortez, Xi Burrell, David Clarke and colleagues, with an educational deepali from [employer]. CACHORRO-7 Assessment Billing CACHORRO-7 Assessment Tool: CACHORRO-7 Assessment 48804 Review of Systems Const Details: Const Denies chills, Denies fatigue, Denies fever(s), Denies headache(s) and Denies weakness ENT Denies dizziness and Denies headache(s) Card Denies chest pain, Denies lightheadedness, Denies dyspnea and Denies other (Palpitations) Resp Denies cough, Denies dyspnea, Denies wheezing and Denies other ( shortness of breath) GI Denies abdominal pain, Denies melena, Denies hematochezia, Denies change in bowel habits, Denies dyspepsia and Denies nausea Denies hematuria and Denies dysuria Musc Denies abnormal gait, Denies myalgias, Denies arthralgias, Denies numbness and Denies tingling Skin/Breast Denies rash, Denies unusual bruising and Denies wounds Neuro Denies abnormal gait, Denies dizziness, Denies headache(s), Denies memory loss, Denies numbness, Denies Sensory deficit (Neuro), Denies tingling and Denies weakness Psych Denies anxiety, Denies depression, Denies memory loss Endo Denies cold intolerance, Denies fatigue, Denies heat intolerance, Denies polydipsia and Denies polyuria Aller/Immun Denies wheezing Physical exam (Primary Care) Vital Signs: Last Vital Signs Temp 98.2 F 02/20/25 16:14 Pulse 56 02/20/25 16:14 Resp 12 02/20/25 16:14 BP 106/74 02/20/25 16:14 Pulse Ox 99 02/20/25 16:14 Oxygen Delivery Method Room Air 02/20/25 16:14 BMI result Body Mass Index 26.1 Tobacco/Smoking Status: Tobacco use Status Tobacco use date assessed 02/20/25 02/20/25 16:14 Patient Tobacco Use Status Never used Tobacco 02/20/25 16:10 e-Cigarette/Vaping Use Never Used 02/20/25 16:10 Depression Screening Interpretation: Negative Thrive Assessment: Date of Thrive Assessment Date Thrive assessed 11/21/24 02/20/25 16:10 Currently or been in a relationship where the following occur: No concerns reported Const Other: General: no acute distress and well developed Nutritional Appearance: well nourished Orientation/consciousness: patient oriented x3 HENMT Head: Yes normocephalic and Yes atraumatic Eyes General: appearance normal, both eyes and all related structures Pupils: Equal, round and reactive pupils present EOM: EOMs intact bilaterally Resp Effort & Inspection: normal respiratory effort Auscultation: clear to auscultation bilaterally Cardio Rate: regular rate Rhythm: regular rhythm Heart sounds: S1 normal heart sound present, S2 normal heart sound present, no gallops, no murmurs and no rubs GI Palpation (GI): No Abdominal aortic bruit present, Soft to palpation, nontender, No hepatosplenomegaly present and No Rebound tenderness present Auscultation: normal bowel sounds General: Yes no CVA tenderness Back/Spine/Pelvis Back: no CVA tenderness Cervical Spine: cervical ROM normal and No Cervical spine tenderness Thoracic/Lumbar Spine: thoraco-lumbar ROM normal, No pain with thoraco-lumbar ROM, No thoracic spinal tenderness and No lumbar spinal tenderness Extrem General: Yes normal to inspection, No edema and No calf tenderness Skin General: warm and dry. Normal skin color. Normal skin turgor Neuro General: patient oriented x3, gait normal and no focal neuro deficit Cranial nerves: Yes Equal, round and reactive pupils present Cognition (Neuro): normal cognition Gait exam (Neuro): Normal gait present Sensory Exam: No Sensory deficit (Neuro) Psych Appearance: grossly normal Affect: normal affect Attitude: cooperative Thought process: Normal thought process present Coding Level of Care Code Est Pt Level 3 (55744) Diagnoses Anxiety and depression F41.9; F32.A ADHD F90.9 History of hepatitis C Z86.19 Laboratory tests ordered as part of a complete physical exam (CPE) Z00.00 Additional Codes CACHORRO-7 Assessment Billing - CACHORRO-7 Assessment Tool: CACHORRO-7 Assessment 18389 ([id number]) PHQ-9 - 48710 - PHQ-9 Billing: Yes ([id number]) Assessment & Plan Assessment & Plan (1) Anxiety and depression: Code(s): F41.9 - Anxiety disorder, unspecified; F32.A - Depression, unspecified Category: Medical Plan: Controlled anxiety, depression, and ADHD symptoms. Continue current treatment regimen. Advised to perform fasting blood work a few days before next visit. Follow-up for an extended physical exam on/after 05/29/2025. Return sooner with symptoms or concerns. Verbalized understanding and agreed with treatment plan. (2) ADHD: Code(s): F90.9 - Attention-deficit hyperactivity disorder, unspecified type Category: Medical Plan: Plan as above. (3) History of hepatitis C: Code(s): Z86.19 - Personal history of other infectious and parasitic diseases Category: Medical Plan: Hep C viral load ordered. (4) Laboratory tests ordered as part of a complete physical exam (CPE): Code(s): Z00.00 - Encounter for general adult medical examination without abnormal findings Category: Medical Plan: Fasting labs ordered as part of a complete physical exam. Advised to fast for at least 10 hours before getting labs drawn. May drink water Verbalized understanding and agreed with treatment plan. Orders: Orders Hemoglobin A1c Today Z00.00 - Encounter for general adult medical examination without abnormal findings Vitamin D 25-OH Total Today Z00.00 - Encounter for general adult medical examination without abnormal findings Lipid Panel Today Z00.00 - Encounter for general adult medical examination without abnormal findings Hepatitis C Viral Load Today Z86.19 - Personal history of other infectious and parasitic diseases
[2025-02-20 16:14] VITALS: BP 106/74; PULSE 56; RESP 12; TEMP 36.8; O2SAT 99; BMI 26.1
--- OUTSIDE RECORDS SUMMARY | 2025-02-20 18:31 | XMS_ITS | Data Portability ---
Author Organization [facility] S pecialistsYESENIA Noel [facility] - [facility] Address [address] [place] [address] Care Team Providers Care Oracle Distribution Consultant Name Role Phone ROSE VELÁSQUEZ Primary Care Provider [phone] Assessment No assessment recorded. Plan of Treatment Reminders Order Date Submit Date Provider Last Modified By Organization Details Last Modified Time Details Appointments None recorded. Lab None recorded. Referral None recorded. Procedures None recorded. Surgeries None recorded. Imaging None recorded. Medication Orders Lotrisone 1 %-0.05 % topical cream 2018 019 INTERFACE [facility] [id number], [address] [place], [address], 9 14:17:46 Lotrisone 1 %-0.05 % topical cream 2017 018 INTERFACE [facility] [id number], [address] [place], [address], 8 16:52:27 Lotrisone 1 %-0.05 % topical cream 2017 018 INTERFACE [facility] [id number], [address] [facility] [place], [address], 8 13:31:26 Patient TargetsNo targets recorded. Patient InstructionsNo instructions recorded. Reason for Referral None Reported. Results Created Date Observation Date Name Description Value Unit Range Abnormal Flag Note LastModifiedBy Organization Detail LastModifiedTime 04/21/20 18 04/21/2018 dimitrios armijo Right Not Available [facility] - [address], [place], [address], 04/21/2018 15:39:22 04/21/20 18 04/21/2018 dimitrios armijo Left Type A Normal Not Available [facility] - [address], [place], [address], 04/21/2018 15:39:22 04/21/20 18 04/21/2018 audio gram Results: See Lin tate Result s Not Available [facility] - [address], [place], [address], 04/21/2018 15:39:24 04/21/20 18 audio gram No observ ation record ed. BARCODE Not Available 2017 16:10:37 Result Notes None recorded. Problems No Known Problems Procedures Surgical History Date Name Laterality Status Provider Name and Address Organization Details Recorded Time 9 Cerumen removal with microscope 88166 completed Luigi Barone MD [address],[facility] [address], [place], [address], [facility]. 03/31/2019 14:19:23 8 Cerumen removal with microscope 78796 completed LUCÍA CHAVEZ [facility]. 03/09/2018 16:41:03 7 Cerumen removal without microscope 63526 completed Elsie Ortega [facility]. 10/05/2017 13:17:31 7 Cerumen removal with microscope 61897 completed Elsie Ortega [facility]. 10/05/2017 13:17:31 Imaging Results Imaging [...] Updated DateTime 8 162.56 cm 23.2 kg/m2 25299.9 7 g 76 /min 14 /min 98.9 [degF] 118 mm[Hg] 79 mm[Hg] MADALYN DUBOIS [facility]. 8 15:35:18 Date Recorded Body height Heart rate Body mass index (BMI) Body weight Body temperature Systolic blood pressure Diastolic blood pressure Provider Name and Address Organization Details Last Updated DateTime 8 162.56 cm 78 /min 23.2 kg/m2 90095.9 7 g 97.5 [degF] 110 mm[Hg] 70 mm[Hg] Kar Boone [facility]. 8 15:46:38 Date Recorded Body height Body mass index (BMI) Body weight Heart rate Body temperature Systolic blood pressure Diastolic blood pressure Provider Name and Address Organization Details Last Updated DateTime 8 162.56 cm 23.2 kg/m2 14534.9 7 g 88 /min 99.2 [degF] 125 mm[Hg] 74 mm[Hg] AILYN SCHULTZ [facility]. 8 13:23:18 Date Recorded Body height Body mass index (BMI) Body weight Heart rate Body temperature Systolic blood pressure Diastolic blood pressure Provider Name and Address Organization Details Last Updated DateTime 8 162.56 cm 23.2 kg/m2 87132.9 7 g 85 /min 99.3 [degF] 108 mm[Hg] 68 mm[Hg] Xi Perry [facility]. 8 16:31:53 Date Recorded Body height Body mass index (BMI) Body weight Heart rate Body temperature Systolic blood pressure Diastolic blood pressure Provider Name and Address Organization Details Last Updated DateTime 9 162.56 cm 23.2 kg/m2 50170.9 7 g 79 /min 99.4 [degF] 103 mm[Hg] 70 mm[Hg] KRYSTIAN TALBOT [facility]. 9 13:37:34 Social History Question Answer Notes LastModified by Organizat ion Details LastModified Time Tobacco Smoking Status Never Smoker [facility] [place] - [facility]. 04/27/2018 15:49:24 What Is Your [...] SNOMED-CT Code Diagnosis ICD10 Code Diagnosis Note [id number] Omar Stanton MD [facility] - [address] [place] [address] 10/05/2017 12:32:13 10/05/2017 14:08:35 Fissure in skin 53055281 R23.4 AD. impetigo with mild cellulitis component surroundin g fissure. strict digital precaution s. alternate TAC and Bacitracin topically BID-TID each. good technique as advised w qtip. gently. f/u 7-10 days w audio and recheck to ensure resolution . pt feels hearing may be less than normal in contralate ral ear at times. 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 h20 ? & digital prec. Acute ecze matoid otitis externa 91118555 H60.549 Acute otitis externa 302 60105 H60.501 [id number] Luigi Barone MD [facility] [address] [facility] [address] [place] [address] 03/09/2018 16:01:33 03/09/2018 16:49:51 Impacted cerumen of bilateral ears [id number] 087859 H61.23 All wax removed under microscope with relief Candidal o titis externa 51420249 B37.84 Left side. Nystatin powder sprayed. [id number] Luigi Barone MD [facility] [address] [address] 03/21/2018 16:34:58 03/21/2018 17:23:23 Otalgia of right ear 5806453086 175993 H92.01 Left side Candidal o titis externa 18903448 B37.84 Left side. Nystatin powder sprayed. [id number] MD NICK Nicole - [address] [facility] [address] [place] [address] 04/19/2018 14:50:55 04/19/2018 15:21:56 Diffuse otitis externa 34746471 H60.311 Keep ear dry [id number] Vikas Hahn MD [facility] [address] [address] 04/21/2018 14:54:40 04/21/2018 15:50:59 Diffuse otitis externa 27940940 H60.311 Keep ear dry [id number] ABIODUN TERESA [facility] [address] [address] 04/21/2018 14:56:11 04/21/2018 15:49:03 Unilateral conductive hearing loss with unrestricted hearing on the contralateral side 676929334 H90.11 [id number] MD N[place] Nicole - [address] [facility] [address] [place] [address] 04/27/2018 15:35:49 04/27/2018 16:09:18 Diffuse otitis externa 49781604 H60.311 Much improved. Keep ear dry Vinegar/ET [place] irrigation as discussed. [id number] MD [facility] - [address] [facility] [address] [place] [address] 05/24/2018 13:17:47 05/24/2018 13:33:54 Chronic otitis externa 93355379 H60.62 [id number] MD [facility] - [address] [facility] [address] [place] [address] 06/15/2018 16:22:29 06/15/2018 16:55:27 Chronic otitis externa 61212042 H60.62 Much improved. [id number] Luigi Barone MD [facility] - [address] [place] [address] 03/31/2019 13:27:42 03/31/2019 14:25:13 Otitis externa 0125651 H60.90 Removed cerumen. No sign of infection. 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 Health Concerns Section Related Observation LastModified by Organization Detai ls LastModified Time None Recorded Concern Status LastModified by Organization Details LastModified Time None Recorded Advance Directives Directive None Recorded Payers Encounter Date Sequence Insurance Name Policy Number Policy [place] Covered Member ID [place] Member ID Guarantor Name 04/21/2018 1 [place] [facility]ENEF[facility] - BLUE OPEN ACCESS (O) [id number] [facility] 04/27/2018 1 [place] [employer] [facility] [employer] BENEFIT PLAN - BLUE OPEN ACCESS (HMO) [id number] [facility] 05/24/2018 1 [place] [employer] [facility] [employer] BENEFIT PLAN - BLUE OPEN ACCESS (O) [id number] [facility] 06/15/2018 1 [place] [employer] [facility] HE[facility] BENEFIT [facility] - BLUE OPEN ACCESS (O) [id number] 45 [facility] 03/31/2019 1 *SELF PAY* In [facility] Notes Date Note Type Note Provider Name [...] factors:nothing makes it worse Vikas Hahn MD [address] [place] [address],[facility] [address], [place], [address], [facility]. 04/21/2018 15:50:35 04/21/2018 text/html Right ear fullne ss, hearing loss, severe pain, outer pinna and inner ears. Recently treated for left ear infection. no concerns for left ear at today's visit. Occasional ringing of right ear. Patient denied active drainage, history of noise exposure, and dizziness. ABIODUN harris [facility]. 04/21/2018 15:40:53 04/27/2018 text/html Ear Pain/InfectionReported bypatient.Location:ear fullness bilateral;loss of hearing bilateral Quality:sharp pain;deep pain;itching;sounds distorted;sounds muffled Severity:interference with sleep Alleviating factors:ototopical antibiotics Aggravating factors:nothing makes it worseHearing LossReported bypatient.Location:los s of hearing bilateral Quality:sounds distorted;sounds muffled Severity:interference with sleep Alleviating factors:nothing gives relief Aggravating factors:nothing makes it worse Vikas Hahn MD [address] [place] [address],[facility] [address], [place], [address], [facility]. 04/28/2018 07:58:50 05/24/2018 text/html Ear [...] factors:nothing makes it worse Vikas Hahn MD [facility] [facility] [address], [place], [address], [facility]. 05/24/2018 13:32:41 06/15/2018 text/html Ear FullnessRepo rted bypatient.Location:ear fullness left Onset/Timing:resolved fullness Duration:resolved drainage Quality:dull pain;sounds muffled Alleviating factors:Relief with Lotrisone creamNotes: Vikas Hahn MD [facility] [address], [place], [address], [facility]. 06/15/2018 16:52:27 03/31/2019 text/html Ear [...] no nasal discharge Luigi Barone MD [address] [facility],[address], [place], [address], [facility]. 03/31/2019 14:35:00 OBGyn Episode No OBEpisode recorded.
== END 2025-02-20 16:53 | disposition home or self-care (01) ==
LOC: HO.HMCFM 15:34
PROVIDERS: PCP Nurse Practitioner Family; Visit Provider Nurse Practitioner Family
DX: F41.9 Anxiety disorder, unspecified (principal); F32.A Depression, unspecified; F90.9 Attention-deficit hyperactivity disorder, unspecified type; Z86.19 Personal history of other infectious and parasitic diseases; Z00.00 Encounter for general adult medical examination without abnormal findings

== ENCOUNTER → 2025-02-20 15:33 | Outpatient (BNVA) | payer OTHER, SELFPAY | PROVIDERS: PCP Nurse Practitioner Family; Visit Provider Nurse Practitioner Family | DX: F41.9 Anxiety disorder, unspecified (principal); F32.A Depression, unspecified; F90.9 Attention-deficit hyperactivity disorder, unspecified type; Z86.19 Personal history of other infectious and parasitic diseases; Z79.899 Other long term (current) drug therapy | CPT/HCPCS: 96127 ==

== ENCOUNTER 2025-03-13 15:02 | Outpatient (REF) | payer OTHER, SELFPAY ==
--- NOTE | ~2025-03-13 | US_ITS ---
EXAMINATION: US PELVIS TRANSABDOMINAL AND TRANSVAGINAL HISTORY: R10.2 - Pelvic and perineal pain COMPARISON: There are no prior studies for comparison. TECHNIQUE: Transabdominal and endovaginal real-time 2D alegria-scale ultrasound was performed. FINDINGS: Uterus: The uterus is normal in size, measuring 7.9 x 4.8 x 5.2 cm. Myometrium has a normal echotexture. No fibroids are identified. Endometrium: The endometrial stripe measures 9 mm in thickness. Nabothian cysts are noted in the cervix. Right ovary: The right ovary measures 2.9 x 2.0 x 1.6 cm. The right ovary is normal in size and echotexture. Left ovary: The left ovary measures 2.2 x 1.6 x 2.0 cm. The left ovary is normal in size and echotexture. There is a 1.2 cm cyst versus follicle. Pelvic fluid: There is trace fluid in the cul-de-sac.. US/US pelvic and transvaginal IMPRESSION: Unremarkable pelvic ultrasound. Electronically signed by: Chepe Reilly MD 03/14/2025 04:33 PM EDT
--- OUTSIDE RECORDS SUMMARY | 2025-03-13 18:10 | XMS_ITS | Data Portability ---
Author Organization [facility] S pecialistsYESENIA Noel [facility] - [facility] Address [address] [facility] [address] [place] [address] Care Team Providers Care Damage Inside Adjuster Name Role Phone ROSE VELÁSQUEZ Primary Care Provider Assessment No assessment recorded. Plan of Treatment Reminders Order Date Submit Date Provider Last Modified By Organization Details Last Modified Time Details Appointments None recorded. Lab None recorded. Referral None recorded. Procedures None recorded. Surgeries None recorded. Imaging None recorded. Medication Orders Lotrisone 1 %-0.05 % topical cream 2018 019 INTERFACE [facility] [id number], [address] [place], [address], 9 14:17:46 Lotrisone 1 %-0.05 % topical cream 2017 018 INTERFACE [facility] [id number], [address] [place], [address], 8 16:52:27 Lotrisone 1 %-0.05 % topical cream 2017 018 INTERFACE [facility] [id number], [address] [facility], [address], 8 13:31:26 Patient TargetsNo targets recorded. Patient InstructionsNo instructions recorded. Reason for Referral None Reported. Results Created Date Observation Date Name Description Value Unit Range Abnormal Flag Note LastModifiedBy Organization Detail LastModifiedTime 04/21/20 18 04/21/2018 dimitrios armijo Right Not Available [facility] - [address], [place], [address], 04/21/2018 15:39:22 04/21/20 18 04/21/2018 dimitrios armijo Left Type A Normal Not Available [facility] - [address], [place], [address], 04/21/2018 15:39:22 04/21/20 18 04/21/2018 audio gram Results: See Lin tate Result s Not Available [place] - [address], [place], [address], 04/21/2018 15:39:24 04/21/20 18 audio gram No observ ation record ed. BARCODE Not Available 2017 16:10:37 Result Notes None recorded. Problems No Known Problems Procedures Surgical History Date Name Laterality Status Provider Name and Address Organization Details Recorded Time 9 Cerumen removal with microscope 09491 completed Luigi Barone MD [address] [facility] [address], [place], [address], [facility]. 03/31/2019 14:19:23 8 Cerumen removal with microscope 07009 completed LUCÍA CHAVEZ [facility]. 03/09/2018 16:41:03 7 Cerumen removal without microscope 53087 completed Elsie Ortega [facility]. 10/05/2017 13:17:31 7 Cerumen removal with microscope 34194 completed Elsie Ortega [facility]. 10/05/2017 13:17:31 Imaging Results [...] Updated DateTime 8 162.56 cm 23.2 kg/m2 15877.9 7 g 76 /min 14 /min 98.9 [degF] 118 mm[Hg] 79 mm[Hg] MADALYN DUBOIS [facility] 8 15:35:18 Date Recorded Body height Heart rate Body mass index (BMI) Body weight Body temperature Systolic blood pressure Diastolic blood pressure Provider Name and Address Organization Details Last Updated DateTime 8 162.56 cm 78 /min 23.2 kg/m2 03462.9 7 g 97.5 [degF] 110 mm[Hg] 70 mm[Hg] Kar Boone [facility] 8 15:46:38 Date Recorded Body height Body mass index (BMI) Body weight Heart rate Body temperature Systolic blood pressure Diastolic blood pressure Provider Name and Address Organization Details Last Updated DateTime 8 162.56 cm 23.2 kg/m2 09736.9 7 g 88 /min 99.2 [degF] 125 mm[Hg] 74 mm[Hg] AILYN SCHULTZ [facility] 8 13:23:18 Date Recorded Body height Body mass index (BMI) Body weight Heart rate Body temperature Systolic blood pressure Diastolic blood pressure Provider Name and Address Organization Details Last Updated DateTime 8 162.56 cm 23.2 kg/m2 77351.9 7 g 85 /min 99.3 [degF] 108 mm[Hg] 68 mm[Hg] Xi Perry [facility] 8 16:31:53 Date Recorded Body height Body mass index (BMI) Body weight Heart rate Body temperature Systolic blood pressure Diastolic blood pressure Provider Name and Address Organization Details Last Updated DateTime 9 162.56 cm 23.2 kg/m2 30245.9 7 g 79 /min 99.4 [degF] 103 mm[Hg] 70 mm[Hg] KRYSTIAN TALBOT [facility]. 9 13:37:34 Social History Question Answer Notes LastModified by Organizat ion Details LastModified Time Tobacco Smoking Status Never Smoker CH[facility] [place] - [facility]. 04/27/2018 15:49:24 What Is Your [...] SNOMED-CT Code Diagnosis ICD10 Code Diagnosis Note [id number] Omar Stanton MD [facility] - [address] [facility] [address] [address] [place] [address] 10/05/2017 12:32:13 10/05/2017 14:08:35 Fissure in skin 33844944 R23.4 AD. impetigo with mild cellulitis component surroundin g fissure. strict digital precaution s. alternate TAC and Bacitracin topically BID-TID each. good technique as advised w qtip. gently. f/u 7-10 days w audio and recheck to ensure resolution . pt feels hearing may be less than normal in contralate ral ear at times. 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 h20 ? & digital prec. Acute ecze matoid otitis externa 52751563 H60.549 Acute otitis externa 302 01488 H60.501 [id number] Luigi Barone MD [facility] - [address] [facility] [address] [place] [address] 03/09/2018 16:01:33 03/09/2018 16:49:51 Impacted cerumen of bilateral ears 4320858950 144796 H61.23 All wax removed under microscope with relief Candidal o titis externa 00443663 B37.84 Left side. Nystatin powder sprayed. [id number] Luigi Barone MD [facility] [address] [address] 03/21/2018 16:34:58 03/21/2018 17:23:23 Otalgia of right ear 7900864212 529110 H92.01 Left side Candidal o titis externa 96655808 B37.84 Left side. Nystatin powder sprayed. [id number] MD NICK Nicole - [address] [facility] [employer],[address] [place] [address] 04/19/2018 14:50:55 04/19/2018 15:21:56 Diffuse otitis externa 83446010 H60.311 Keep ear dry [id number] Vikas Hahn MD [facility] - [address] [address] 04/21/2018 14:54:40 04/21/2018 15:50:59 Diffuse otitis externa 95107272 H60.311 Keep ear dry 441127 ABIODUNGILL GALLAGHERLEANN [facility] - [address] [address] 04/21/2018 14:56:11 04/21/2018 15:49:03 Unilateral conductive hearing loss with unrestricted hearing on the contralateral side 505891975 H90.11 [id number] MD NICK Nicole - [address] [facility],[address] [place] [address] 04/27/2018 15:35:49 04/27/2018 16:09:18 Diffuse otitis externa 56528778 H60.311 Much improved. Keep ear dry Vinegar/ET [place] irrigation as discussed. [id number] MD NICK Nicole - [address] [facility] [address] [place] [address] 05/24/2018 13:17:47 05/24/2018 13:33:54 Chronic otitis externa 09956262 H60.62 [id number] MD NICK Nicole - [address] [facility],[address] [place] [address] 06/15/2018 16:22:29 06/15/2018 16:55:27 Chronic otitis externa 99538074 H60.62 Much improved. [id number] Luigi Barone MD [facility] [address] [place] [address] 03/31/2019 13:27:42 03/31/2019 14:25:13 Otitis externa 9569356 H60.90 Removed cerumen. No sign of infection. 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 Health Concerns Section Related Observation LastModified by Organization Detai ls LastModified Time None Recorded Concern Status LastModified by Organization Details LastModified Time None Recorded Advance Directives Directive None Recorded Payers Encounter Date Sequence Insurance Name Policy Number Policy Dumas Covered Member ID Dumas Member ID Guarantor Name 04/21/2018 1 [place] [facility] B[facility]EF[facility] - BLUE OPEN ACCESS (O) [place] [id number] [facility] 04/27/2018 1 [place] [facility] [facility] BENEFIT PLAN - BLUE OPEN ACCESS (HMO) [id number] [facility] 05/24/2018 1 [place] [facility] BENEF[facility] - BLUE OPEN ACCESS (HMO) [id number] [facility] 06/15/2018 1 [place] [facility] [facility] BENEFIT [facility] - BLUE OPEN ACCESS (O) [id number] Jennifer Dietrich 03/31/2019 1 *SELF PAY* In [facility] Notes Date Note Type Note Provider [...] factors:nothing makes it worse Vikas Hahn MD [address] [place] [address],[facility] [address], [place], [address] - [facility]. 04/21/2018 15:50:35 04/21/2018 text/html Right ear fullne ss, hearing loss, severe pain, outer pinna and inner ears. Recently treated for left ear infection. no concerns for left ear at today's visit. Occasional ringing of right ear. Patient denied active drainage, history of noise exposure, and dizziness. ABIODUN harris MA - [facility]. 04/21/2018 15:40:53 04/27/2018 text/html Ear Pain/InfectionReported bypatient.Location:ear fullness bilateral;loss of hearing bilateral Quality:sharp pain;deep pain;itching;sounds distorted;sounds muffled Severity:interference with sleep Alleviating factors:ototopical antibiotics Aggravating factors:nothing makes it worseHearing LossReported bypatient.Location:los s of hearing bilateral Quality:sounds distorted;sounds muffled Severity:interference with sleep Alleviating factors:nothing gives relief Aggravating factors:nothing [place] [address] [place] [address],[address], [place], [address], [facility]. 04/28/2018 07:58:50 05/24/2018 text/html Ear [...] factors:nothing makes it worse Vikas Hahn MD [address] [place] [address] [address], [place], [address], [facility]. 05/24/2018 13:32:41 06/15/2018 text/html Ear FullnessRepo rted bypatient.Location:ear fullness left Onset/Timing:resolved fullness Duration:resolved drainage Quality:dull pain;sounds muffled Alleviating factors:Relief with Lotrisone creamNotes: Vikas Hahn MD [address] [place] [address],[facility] [address], [place], [address], [facility]. 06/15/2018 16:52:27 03/31/2019 text/html Ear [...] congestion; no nasal discharge Luigi Barone MD [address] [place], [place] [address], [place], [address], [facility] - [facility]. 03/31/2019 14:35:00 OBGyn Episode No OBEpisode recorded.
--- OUTSIDE RECORDS SUMMARY | 2025-03-13 18:10 | XMS_ITS | Continuity of Care Document ---
Author Organization [facility] Address [address] [place] [address] [place] [address] Phone Care Team Providers Care Blade Sharpener Name Role Phone Amanda Andrade MD Unavailable [...] - Active Procedures Procedure Date OFFICE/OUTPATIENT VISIT, [facility] Advance Directives Directive Yes / No Effective Date File Name No Information Encounters Encounter Description Practice Location Reason(s) For Visit Diagnoses Date Provider Providers Copied on Encounter OFFICE/OUTPAT IENT VISIT, [facility] Dermatology [facility], [address] [place], [address], tel:[phone] rash (chief complaint) Seborrheic dermatitis, unspecified [address] Patel. [address] [place], [place], [id number]. tel:[phone] Family History Family Member Type Diagnosis Age At Onset No Information Payers Payer name Insurance type Covered constitution party ID Leni loo(s) [facility] [id number] Social History Type Description Quantity Date Captured [...] Mental Status Date Cognitive Assessment Orientation - [place] ed to time, place, person, situation. Patient Care Teams Name Effective Dates (start - stop) Status Members No Information
== END 2025-03-13 15:03 | disposition home or self-care (01) ==
LOC: HO.HMGCX 15:02
PROVIDERS: PCP Nurse Practitioner Family; Visit Provider Advanced Practice Midwife
DX: R10.2 Pelvic and perineal pain (principal)
CPT/HCPCS: 76830; 76856

== ENCOUNTER → 2025-03-13 15:22 | Outpatient (BNV) | payer OTHER, SELFPAY | PROVIDERS: PCP Nurse Practitioner Family; Visit Provider Radiology Diagnostic Radiology | DX: R10.2 Pelvic and perineal pain (principal) | CPT/HCPCS: 76830; 76856 ==

== ENCOUNTER 2025-03-27 09:36 | Outpatient (AMB) | payer OTHER, SELFPAY ==
--- NOTE | 2025-03-27 09:37 | A.OFFVIS_ITS ---
Intake Visit Reasons: Ultrasound follow up Intake Note: cell #[phone] Formula Maker: Formula Maker Present Allergies Seasonal Allergies Allergy (Intermediate, Verified 02/20/25 16:18) Itchy Eyes ferrous sulfate Adverse Reaction (Intermediate, Verified 02/20/25 16:18) Stomach Upset Is last menstrual period known: Yes HPI Comments Details: Tele Health Visit Total time I personally spent on visit and management today: 20 minutes. Time spent included review of pertinent office notes in the electronic health record; review of laboratory and imaging results; review of personal family medical history; discussing diagnosis and plan of care with the patient; documenting the encounter in the EMR. Patient presents to discuss: Ultrasound findings, history of recent polypectomy, history of pelvic cramping. She reports to heavy periods since her polypectomy. She reports feeling better. Cycles have started to space out. Sees Hematology for a longstanding history of anemia with the inability absorb iron. History of radiation exposure, enlarged thyroid. COUNT INCLUDES THE [facility] Medical History (Updated 03/27/25 @ 10:04 by Fatmata Melendez CNM) Heavy menses Pelvic cramping Radiation effect Gestational diabetes Pre-diabetes ADHD (attention deficit hyperactivity disorder) Anxiety and depression Iron deficiency anemia Macular degeneration Hepatitis C Surgical History History of tubal ligation Family History Father Depression Mental health disorder Mother Depression HTN (hypertension) Mental health disorder Brother No problems noted. Brother No problems noted. Brother No problems noted. Sister No problems noted. Son No problems noted. Son No problems noted. 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 Current occupational exposures/hazards: No Cognitive needs: No Hearing needs: No Vision needs: No Female Reproductive History Menstrual Age of Menarche: 15 Review of Systems Const All systems reviewed & are unremarkable except as noted in HPI and below Endo Reports no additional complaints Physical Exam Const General: cooperative, healthy appearing and no acute distress Psych Appearance: well kempt Attitude: cooperative Thought process: Normal thought process present Telehealth Telehealth Telehealth Platform: PubNub Location of provider rendering services: practice address Location of patient: other Patient Identification confirmed using: Name, : Yes Telehealth method: video Patient verbally consented to treatment: Yes Patient verbally consented to billing insurance company: Yes Patient informed of any privacy concerns related to visit: Yes Results Reviewed Results Reviewed: [facility] [address] [place] [address] [place] [address] Ultrasound Report Signed Patient: Jennifer Dietrich MR#: [id number] : 1975 Acct:[id number] Age/Sex: 49 / F ADM Date: 03/13/25 [facility] Dr: Fatmata Melendez CNM Ordering Physician: Fatmata Melendez CNM Date of Service: 03/13/25 Procedure(s): US pelvic and transvaginal Accession Number(s): [id number] cc: Fatmata Melendez CNM; Salena Philippe PTA~ EXAMINATION: US PELVIS TRANSABDOMINAL AND TRANSVAGINAL HISTORY: R10.2 - Pelvic and perineal pain COMPARISON: There are no prior studies for comparison. TECHNIQUE: Transabdominal and endovaginal real-time 2D alegria-scale ultrasound was performed. FINDINGS: Uterus: The uterus is normal in size, measuring 7.9 x 4.8 x 5.2 cm. Myometrium has a normal echotexture. No fibroids are identified. Endometrium: The endometrial stripe measures 9 mm in thickness. Nabothian cysts are noted in the cervix. Right ovary: The right ovary measures 2.9 x 2.0 x 1.6 cm. The right ovary is normal in size and echotexture. Left ovary: The left ovary measures 2.2 x 1.6 x 2.0 cm. The left ovary is normal in size and echotexture. There is a 1.2 cm cyst versus follicle. Pelvic fluid: There is trace fluid in the cul-de-sac.. US/US pelvic and transvaginal IMPRESSION: Unremarkable pelvic ultrasound. Electronically signed by: Chepe Reilly MD 03/14/2025 04:33 PM EDT RP Dictated By: Chepe Reilly MD Signed By: <Electronically signed by Chepe Reilly MD in OV> 03/14/25 1633 DD/ 1522 TD/TT: 03/13/25 1547 Surgeon'S Assistant: Assessment & Plan Assessment & Plan (1) Heavy menses: Code(s): N92.0 - Excessive and frequent menstruation with regular cycle Category: Medical Qualifiers: Menorrhagia type: with regular cycle Qualified Code(s): N92.0 - Excessive and frequent menstruation with regular cycle Plan: Currently not interested in any cycle control methods. She would prefer to watch her cycle. Advised to monitor. Menopause verses perimenopause. Menopause is definitive of 1 year of no menses or 12 months in succession. Report any abnormal uterine bleeding in example prolonged episodes, or short intervals less than 24 days. Plan labs with her fasting, TSH and CBC. The patient expressed understanding and agreement with the plan of care. All of her questions and concerns were addressed to the best of my ability. (2) Encounter to discuss test results: Code(s): Z71.2 - Person consulting for explanation of examination or test findings Plan Discussed: Ultrasound findings-unremarkable. Reviewed H&H,( last TSH 12/2023-normal range). This note is constructed using voice recognition software. While every effort has been made to ensure accuracy, salon/spa manager errors may have been included. Orders: Orders Thyroid Stimulating Hormone Today N92.1 - Excessive and frequent menstruation with irregular cycle Coding Level of Care Code Tele Est Pt Level 3 (90413) Diagnoses Menorrhagia with regular cycle N92.0 Menorrhagia type: with regular cycle Encounter to discuss test results Z71.2
--- OUTSIDE RECORDS SUMMARY | 2025-03-27 10:16 | XMS_ITS | Data Portability ---
Author Organization [facility] pe[facility].YESENIA ALPHARETTA SURGERY - [facility] Address [address] [facility] [address] [place] [address] Care Team Providers Care Blood Bank Credit Clerk Name Role Phone ROSE VELÁSQUEZ Primary Care Provider Assessment No assessment recorded. Plan of Treatment Reminders Order Date Submit Date Provider Last Modified By Organization Details Last Modified Time Details Appointments None recorded. Lab None recorded. Referral None recorded. Procedures None recorded. Surgeries None recorded. Imaging None recorded. Medication Orders Lotrisone 1 %-0.05 % topical cream 2018 019 INTERFACE [facility] [id number], [address] [place], [address], 9 14:17:46 Lotrisone 1 %-0.05 % topical cream 2017 018 INTERFACE [facility] [id number], [address] [place], [address], 8 16:52:27 Lotrisone 1 %-0.05 % topical cream 2017 018 INTERFACE [facility] [id number], [address] [facility] [place], [address], 8 13:31:26 Patient TargetsNo targets recorded. Patient InstructionsNo instructions recorded. Reason for Referral None Reported. Results Created Date Observation Date Name Description Value Unit Range Abnormal Flag Note LastModifiedBy Organization Detail LastModifiedTime 04/21/20 18 04/21/2018 dimitrios armijo Right Not Available [facility] k - [address], [place], [address], 04/21/2018 15:39:22 04/21/20 18 04/21/2018 dimitrios armijo Left Type A Normal Not Available [place] - [address], [place], [address], 04/21/2018 15:39:22 04/21/20 18 04/21/2018 audio gram Results: See Lin tate Result s Not Available [facility] - [address], [place], [address], 04/21/2018 15:39:24 04/21/20 18 audio gram No observ ation record ed. BARCODE Not Available 2017 16:10:37 Result Notes None recorded. Problems No Known Problems Procedures Surgical History Date Name Laterality Status Provider Name and Address Organization Details Recorded Time 9 Cerumen removal with microscope 11313 completed Luigi Barone MD [address] [facility] [address], [place], [address], [facility]. 03/31/2019 14:19:23 8 Cerumen removal with microscope 43275 completed LUCÍA CHAVEZ [facility]. 03/09/2018 16:41:03 7 Cerumen removal without microscope 14919 completed Elsie Ortega [facility]. 10/05/2017 13:17:31 7 Cerumen removal with microscope 32811 completed Elsie Ortega [facility]. 10/05/2017 13:17:31 Imaging Results Imaging [...] Updated DateTime 8 162.56 cm 23.2 kg/m2 09424.9 7 g 76 /min 14 /min 98.9 [degF] 118 mm[Hg] 79 mm[Hg] MADALYN DUBOIS [facility]. 8 15:35:18 Date Recorded Body height Heart rate Body mass index (BMI) Body weight Body temperature Systolic blood pressure Diastolic blood pressure Provider Name and Address Organization Details Last Updated DateTime 8 162.56 cm 78 /min 23.2 kg/m2 59044.9 7 g 97.5 [degF] 110 mm[Hg] 70 mm[Hg] Kar Boone [facility]. 8 15:46:38 Date Recorded Body height Body mass index (BMI) Body weight Heart rate Body temperature Systolic blood pressure Diastolic blood pressure Provider Name and Address Organization Details Last Updated DateTime 8 162.56 cm 23.2 kg/m2 23926.9 7 g 88 /min 99.2 [degF] 125 mm[Hg] 74 mm[Hg] AILYN SCHULTZ [facility]. 8 13:23:18 Date Recorded Body height Body mass index (BMI) Body weight Heart rate Body temperature Systolic blood pressure Diastolic blood pressure Provider Name and Address Organization Details Last Updated DateTime 8 162.56 cm 23.2 kg/m2 65823.9 7 g 85 /min 99.3 [degF] 108 mm[Hg] 68 mm[Hg] Xi Perry [facility]. 8 16:31:53 Date Recorded Body height Body mass index (BMI) Body weight Heart rate Body temperature Systolic blood pressure Diastolic blood pressure Provider Name and Address Organization Details Last Updated DateTime 9 162.56 cm 23.2 kg/m2 06631.9 7 g 79 /min 99.4 [degF] 103 mm[Hg] 70 mm[Hg] KRYSTIAN TALBOT [facility]. 9 13:37:34 Social History Question Answer Notes LastModified by Organizat ion Details LastModified Time Tobacco Smoking Status Never Smoker CHANTEL [place] - [facility]. 04/27/2018 15:49:24 What Is Your Level Of Caffeine Consumption? [...] not available 04/27/2018 Sex: Unknown Functional Status Question Answer Note LastModified by Organization D etails LastModified Time What is your level of alcohol consumption? None Information not available 04/27/2018 Mental Status None recorded. Family History Relationship [...] SNOMED-CT Code Diagnosis ICD10 Code Diagnosis Note [id number] Omar Stanton MD [facility] - [address] [place] [address] 10/05/2017 12:32:13 10/05/2017 14:08:35 Fissure in skin 37535449 R23.4 AD. impetigo with mild cellulitis component surroundin g fissure. strict digital precaution s. alternate TAC and Bacitracin topically BID-TID each. good technique as advised w qtip. gently. f/u 7-10 days w audio and recheck to ensure resolution . pt feels hearing may be less than normal in contralate ral ear at times. 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 h20 ? & digital prec. Acute ecze matoid otitis externa 15298121 H60.549 Acute otitis externa 302 46938 H60.501 [id number] Brendan Armenta MD [facility] - [address] [facility] [address] [place] [address] 03/09/2018 16:01:33 03/09/2018 16:49:51 Impacted cerumen of bilateral ears 6288067944 644340 H61.23 All wax removed under microscope with relief Candidal o titis externa 69611979 B37.84 Left side. Nystatin powder sprayed. [id number] Luigi Barone MD [facility] [address] [address] 03/21/2018 16:34:58 03/21/2018 17:23:23 Otalgia of right ear 9940755020 620470 H92.01 Left side Candidal o titis externa 55552280 B37.84 Left side. Nystatin powder sprayed. [id number] MD NICK Nicole - [address] [facility] [employer],[address] [place] [address] 04/19/2018 14:50:55 04/19/2018 15:21:56 Diffuse otitis externa 94564946 H60.311 Keep ear dry 642601 Vikas Hahn MD [facility] [address] [address] 04/21/2018 14:54:40 04/21/2018 15:50:59 Diffuse otitis externa 43863688 H60.311 Keep ear dry 545529 TUSHAR ZAIDI [facility] [address] [address] 04/21/2018 14:56:11 04/21/2018 15:49:03 Unilateral conductive hearing loss with unrestricted hearing on the contralateral side 375329361 H90.11 [id number] MD NICK Nicole - [address] [facility],[address] [place] [address] 04/27/2018 15:35:49 04/27/2018 16:09:18 Diffuse otitis externa 45981545 H60.311 Much improved. Keep ear dry Vinegar/ET [place] irrigation as discussed. [id number] MD NICK Nicole - [address] [facility],[address] [place] [address] 05/24/2018 13:17:47 05/24/2018 13:33:54 Chronic otitis externa 94241817 H60.62 [id number] MD NICK Nicole - [address] [facility],[address] [place] [address] 06/15/2018 16:22:29 06/15/2018 16:55:27 Chronic otitis externa 00481075 H60.62 Much improved. [id number] Luigi Barone MD [facility] [address] [place] [address] 03/31/2019 13:27:42 03/31/2019 14:25:13 Otitis externa 4889766 H60.90 Removed cerumen. No sign of infection. 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 Health Concerns Section Related Observation LastModified by Organization Detai ls LastModified Time None Recorded Concern Status LastModified by Organization Details LastModified Time None Recorded Advance Directives Directive None Recorded Payers Insurance Date Sequence Insurance Name Policy Number Policy Dumas Covered Member ID Dumas Member ID Guarantor Name 03/31/2019 1 [place]: [facility] BENEFIT PLAN - [place] OPEN ACCESS (HMO) [facility] [id number] [facility] 03/31/2019 1 *SELF PAY* In [facility] Notes Date Note Type Note Provider [...] factors:nothing makes it worse Vikas Hahn MD [address] [facility],[address], [place], [address], [facility]. 04/21/2018 15:50:35 04/21/2018 text/html Right ear fullne ss, hearing loss, severe pain, outer pinna and inner ears. Recently treated for left ear infection. no concerns for left ear at today's visit. Occasional ringing of right ear. Patient denied active drainage, history of noise exposure, and dizziness. ABIODUN harris [facility]. 04/21/2018 15:40:53 04/27/2018 text/html Ear Pain/InfectionReported bypatient.Location:ear fullness bilateral;loss of hearing bilateral Quality:sharp pain;deep pain;itching;sounds distorted;sounds muffled Severity:interference with sleep Alleviating factors:ototopical antibiotics Aggravating factors:nothing makes it worseHearing LossReported bypatient.Location:los s of hearing bilateral Quality:sounds distorted;sounds muffled Severity:interference with sleep Alleviating factors:nothing gives relief Aggravating factors:nothing makes it worse Vikas Hahn MD [address] [facility],[address], [place], [address], [facility]. 04/28/2018 07:58:50 05/24/2018 text/html [...] factors:nothing makes it worse Vikas Hahn MD [address] [facility] [address], [place], [address], [facility]. 05/24/2018 13:32:41 06/15/2018 text/html Ear FullnessRepo rted bypatient.Location:ear fullness left Onset/Timing:resolved fullness Duration:resolved drainage Quality:dull pain;sounds muffled Alleviating factors:Relief with Lotrisone creamNotes: Vikas Hahn MD [address] [facility] [address], [place], [address], [facility]. 06/15/2018 16:52:27 03/31/2019 text/html [...] no nasal discharge Luigi Barone MD [address] [facility] [address], [place], [address], [facility]. 03/31/2019 14:35:00 OBGyn Episode No OBEpisode recorded.
--- OUTSIDE RECORDS SUMMARY | 2025-03-27 10:16 | XMS_ITS | Continuity of Care Document ---
Author Organization [facility] Address [address] [place] [address] [place] [address] Phone Care Team Providers Care Golf Club Manager Name Role Phone Amanda Andrade MD Unavailable [...] - Active Procedures Procedure Date OFFICE/OUTPATIENT VISIT, [facility] Advance Directives Directive Yes / No Effective Date File Name No Information Encounters Encounter Description Practice Location Reason(s) For Visit Diagnoses Date Provider Providers Copied on Encounter OFFICE/OUTPAT IENT VISIT, [facility], [address] [place], [address], tel:[phone] Normal rash (chief complaint) Seborrheic dermatitis, unspecified 4 Raymond Patel. [address] [place], [place], [address]. tel:[phone] Family History Family Member Type Diagnosis Age At Onset No Information Payers Payer name Insurance type Covered democrat ID Leni loo(s) [facility] [id number] Social History Type Description Quantity Date Captured [...] Mental Status Date Cognitive Assessment Orientation - [place] ed to time, place, person, situation. Patient Care Teams Name Effective Dates (start - stop) Status Members No Information
== END 2025-03-27 14:11 | disposition home or self-care (01) ==
LOC: HO.HWS 09:36
PROVIDERS: PCP Nurse Practitioner Family; Visit Provider Advanced Practice Midwife
DX: N92.0 Excessive and frequent menstruation with regular cycle (principal); Z71.2 Person consulting for explanation of examination or test findings
CPT/HCPCS: 99213

== ENCOUNTER → 2025-03-27 09:36 | Outpatient (BNVA) | payer OTHER, SELFPAY | PROVIDERS: PCP Nurse Practitioner Family; Visit Provider Advanced Practice Midwife ==

== ENCOUNTER 2025-05-25 09:09 | Outpatient (REF) | payer OTHER, SELFPAY ==
--- OUTSIDE RECORDS SUMMARY | 2014-02-05 11:00 | XMS_ITS | Continuity of Care Document ---
Author Organization [facility] Address [address] [place] [address] [place] [address] Phone Care Team Providers Care Ribbon Cleaner Name Role Phone Amanda Andrade MD Unavailable Unavailab le Allergies, Adverse Reactions, Alerts Substance Reaction Status Criticality No Known allergies Medications Medication Instructions Dosage Effective Dates (start - stop) Status Comments desonide 0.05 % Topical Cream apply by topical route 2 times every day sparingly and rub gently into the affected area(s) on forehad/temples - Active limit use to 1-2 wks at a time. fluocinolone 0.01 % Topical Soln apply by topical route 2 times every day to the affected area(s) 0. - Active for scalp ketoconazole 2 % Shampoo apply by topical route every day to the affected area(s), lather, leave in place for 5 minutes, and then rinse off with water 0. - Active ADDERALL (unknown strength) Not Available - Active Procedures Procedure Date OFFICE/OUTPATIENT VISIT, [facility] Advance Directives Directive Yes / No Effective Date File Name No Information Encounters Encounter Description Practice Location Reason(s) For Visit Diagnoses Date Provider Providers Copied on Encounter OFFICE/OUTPAT IENT VISIT, [facility], [address] [place], [address], tel:[phone] rash (chief complaint) Seborrheic dermatitis, unspecified [address] Patel. [address] [place], [place], [id number]. tel:[phone] Family History Family Member Type Diagnosis Age At Onset No Information Payers Payer name Insurance type Covered constitution party ID Leni loo(s) [facility] [id number] Social History Type Description Quantity Date Captured Comments Alcohol Use Details No Caffeine Use Details Unknown Tobacco Use Status No Information Smoking Status Never smoker Sex Female Chief Complaint And Reason For Visit From encounter dated '02/05/2014 15:00'. rash (chief complaint) Reason For Referral Reason For Referral No Information History Of Present Illness Encounter Date Complaint History Of Prese nt Illness No Information Functional Status Date Functional Assessmen t No Information Instructions Date Instruction Additional Infor mation No Information Assessments Type Assessment Date No Information Mental Status Date Cognitive Assessment Orientation - Beattie ed to time, place, person, situation. Patient Care Teams Name Effective Dates (start - stop) Status Members No Information
--- OUTSIDE RECORDS SUMMARY | 2025-05-25 09:24 | XMS_ITS | Data Portability ---
Author Organization [facility] S pecialistsYESENIA Noel ALPHARETTA SURGERY - [facility] Address [address] [facility] [address] [place] [address] Care Team Providers Care Data Warehouse Developer Name Role Phone DIDIERROSE Primary Care Provider [phone] Assessment No assessment recorded. Plan of Treatment Reminders Order Date Submit Date Provider Last Modified By Organization Details Last Modified Time Details Appointments None recorded. Lab None recorded. Referral None recorded. Procedures None recorded. Surgeries None recorded. Imaging None recorded. Medication Orders Lotrisone 1 %-0.05 % topical cream 2018 019 INTERFACE [facility] [id number], [address] [place], [address], 9 14:17:46 Lotrisone 1 %-0.05 % topical cream 2017 018 INTERFACE [facility] [id number], [address] [place], [address], 8 16:52:27 Lotrisone 1 %-0.05 % topical cream 2017 018 INTERFACE [facility] [id number], [address] [place], [address], 8 13:31:26 Patient TargetsNo targets recorded. Patient InstructionsNo instructions recorded. Reason for Referral None Reported. Results Created Date Observation Date Name Description Value Unit Range Abnormal Flag Note LastModifiedBy Organization Detail LastModifiedTime 04/21/20 18 04/21/2018 dimitrios armijo Right Not Available [facility] - [address], [place], [address], 04/21/2018 15:39:22 04/21/20 18 04/21/2018 dimitrios armijo Left Type A Normal Not Available [facility] - [address], [place], [address], 04/21/2018 15:39:22 04/21/20 18 04/21/2018 audio gram Results: See Lin tate Result s Not Available [facility] - [address], [place], [address], 04/21/2018 15:39:24 04/21/20 18 audio gram No observ ation record ed. BARCODE Not Available 2017 16:10:37 Result Notes None recorded. Problems No Known Problems Procedures Surgical History Date Name Laterality Status Provider Name and Address Organization Details Recorded Time 9 Cerumen removal with microscope 89578 completed Luigi Barone MD [address] [facility] [address], [place], [address], [facility]. 03/31/2019 14:19:23 8 Cerumen removal with microscope 10189 completed LUCÍA CHAVEZ [facility]. 03/09/2018 16:41:03 7 Cerumen removal without microscope 07086 completed Elsie Ortega [facility]. 10/05/2017 13:17:31 7 Cerumen removal with microscope 52662 completed Elsie Ortega [facility]. 10/05/2017 13:17:31 Imaging Results None recorded. Procedure Notes None recorded. Medical Equipment None [...] Available Not Available Not Available Fluzone Quad 2016-(PF) 60 mcg(15 mcgx4)/0.5 mL intramuscul ar syringe 10/05 completed Not Available Not Available Not Available Vitals Date Recorded Body height Body mass index (BMI) Body weight Heart rate Body temperature Systolic And Diastolic Provider Name and Address Organization Details Last Updated DateTime 9 162.56 cm 23.2 kg/m2 07446.9 7 g 79 /min 99.4 [degF] 103/70 mm[Hg] KRYSTIAN DAHIANA [facility]. 9 13:37:34 Date Recorded Body height Body mass index (BMI) Body weight Heart rate Respiratory rate Body temperature Systolic And Diastolic Provider Name and Address Organization Details Last Updated DateTime 8 162.56 cm 23.2 kg/m2 59758.9 7 g 76 /min 14 /min 98.9 [degF] 118/79 mm[Hg] MADALYN DUBOIS [facility]. 8 15:35:18 Date Recorded Body height Heart rate Body mass index (BMI) Body weight Body temperature Systolic And Diastolic Provider Name and Address Organization Details Last Updated DateTime 8 162.56 cm 78 /min 23.2 kg/m2 33425.9 7 g 97.5 [degF] 110/70 mm[Hg] Kar Boone [facility]. 8 15:46:38 Date Recorded Body height Body mass index (BMI) Body weight Heart rate Body temperature Systolic And Diastolic Provider Name and Address Organization Details Last Updated DateTime 8 162.56 cm 23.2 kg/m2 03869.9 7 g 88 /min 99.2 [degF] 125/74 mm[Hg] AILYN SCHULTZ [facility]. 8 13:23:18 Date Recorded Body height Body mass index (BMI) Body weight Heart rate Body temperature Systolic And Diastolic Provider Name and Address Organization Details Last Updated DateTime 8 162.56 cm 23.2 kg/m2 04687.9 7 g 85 /min 99.3 [degF] 108/68 mm[Hg] Xi Perry [facility]. 8 16:31:53 Social History Question Answer Notes LastModified by Organizat ion Details LastModified Time Tobacco Smoking Status Never Smoker Kar harris [facility]. 04/27/2018 15:49:24 What Is Your [...] SNOMED-CT Code Diagnosis ICD10 Code Diagnosis Note [id number] Omar Stanton MD [facility] - [address] [place] [address] 10/05/2017 12:32:13 10/05/2017 14:08:35 Fissure in skin 22244854 R23.4 AD. impetigo with mild cellulitis component surroundin g fissure. strict digital precaution s. alternate TAC and Bacitracin topically BID-TID each. good technique as advised w qtip. gently. f/u 7-10 days w audio and recheck to ensure resolution . pt feels hearing may be less than normal in contralate ral ear at times. Eczema of external auditory canal 30819328 H60.549 Otitis externa 9360237 H 62.[address] COS on file* add COS gtts if any otorrhea develops. h20 & digital prec. Acute ecze matoid otitis externa 61463062 H60.549 Acute otitis externa 302 35430 H60.501 [id number] Brendan Armenta MD [facility] - [address] [address] 03/09/2018 16:01:33 03/09/2018 16:49:51 Impacted cerumen of bilateral ears 1999880426 020731 H61.23 All wax removed under microscope with relief Candidal o titis externa 41793329 B37.84 Left side. Nystatin powder sprayed. [id number] Luigi Barone MD [facility] [address] [address] 03/21/2018 16:34:58 03/21/2018 17:23:23 Otalgia of right ear 3621103000 668370 H92.01 Left side Candidal o titis externa 82466549 B37.84 Left side. Nystatin powder sprayed. [id number] MD NICK Nicole [address] [facility],[address] [place] [address] 04/19/2018 14:50:55 04/19/2018 15:21:56 Diffuse otitis externa 55665597 H60.311 Keep ear dry 863162 Vikas Hahn MD [facility] [address] [address] 04/21/2018 14:54:40 04/21/2018 15:50:59 Diffuse otitis externa 62423861 H60.311 Keep ear dry 143341 TUSHAR ZAIDI [facility] [address] [address] 04/21/2018 14:56:11 04/21/2018 15:49:03 Unilateral conductive hearing loss with unrestricted hearing on the contralateral side 438084257 H90.11 [id number] MD NICK Nicole [address] [facility],[address] [place] [address] 04/27/2018 15:35:49 04/27/2018 16:09:18 Diffuse otitis externa 67329278 H60.311 Much improved. Keep ear dry Vinegar/ET [place] irrigation as discussed. [id number] MD LOKESH NicoleMING - [address] [facility],[address] [place] [address] 05/24/2018 13:17:47 05/24/2018 13:33:54 Chronic otitis externa 47212965 H60.62 160783 MD LOKESH NicoleMING - [address] [facility],[address] [place] [address] 06/15/2018 16:22:29 06/15/2018 16:55:27 Chronic otitis externa 59673442 H60.62 Much improved. [id number] Luigi Barone MD [facility] - [address] [place] [address] 03/31/2019 13:27:42 03/31/2019 14:25:13 Otitis externa 3050335 H60.90 Removed cerumen. No sign of infection. Some dermatitis of the ear canal Impacted c erumen in right ear 1794368752 582579 H61.21 Temporoman dibular ukaby-qsgm-euapuexlao n syndrome 906753009 M26.623 Health Concerns Section Related Observation LastModified by Organization Detai ls LastModified Time None Recorded Concern Status LastModified by Organization Details LastModified Time None Recorded Advance Directives Directive None Recorded Payers Insurance Date Sequence Insurance Name Policy Number Policy Dumas Covered Member ID Dumas Member ID Guarantor Name 03/31/2019 1 [place]: [facility] HEALTH BENEFIT PLAN - [place] OPEN ACCESS (HMO) [facility] [id number] [facility][1] 03/31/2019 1 *SELF PAY* In [facility] Notes Date Note Type Note Provider Name [...] makes it worse Vikas Hahn MD [address] [facility],[address], [place], [address], [facility]. 04/21/2018 15:50:35 04/21/2018 text/html Right ear fullne ss, hearing loss, severe pain, outer pinna and inner ears. Recently treated for left ear infection. no concerns for left ear at today's visit. Occasional ringing of right ear. Patient denied active drainage, history of noise exposure, and dizziness. ABIODUN harris [place] - [facility]. 04/21/2018 15:40:53 04/27/2018 text/html Ear Pain/InfectionReported bypatient.Location:ear fullness bilateral;loss of hearing bilateral Quality:sharp pain;deep pain;itching;sounds distorted;sounds muffled Severity:interference with sleep Alleviating factors:ototopical antibiotics Aggravating factors:nothing makes it worseHearing LossReported bypatient.Location:los s of hearing bilateral Quality:sounds distorted;sounds muffled Severity:interference with sleep Alleviating factors:nothing gives relief Aggravating factors:nothing makes it worse Vikas Hahn MD [address] [facility],[address], [place], [address], [facility]. 04/28/2018 07:58:50 05/24/2018 text/html [...] gives relief Aggravating factors:nothing makes it worse Viaks Hahn MD [address] [facility] [address], [place], [address], [facility]. 05/24/2018 13:32:41 06/15/2018 text/html Ear FullnessRepo rted bypatient.Location:ear fullness left Onset/Timing:resolved fullness Duration:resolved drainage Quality:dull pain;sounds muffled Alleviating factors:Relief with Lotrisone creamNotes: Vikas Hahn MD [address],[facility] [address], [place], [address], [facility]. 06/15/2018 16:52:27 03/31/2019 text/html [...] no nasal discharge Luigi Barone MD [address] [facility] [address], [place], [address], [facility]. 03/31/2019 14:35:00 OBGyn Episode No OBEpisode recorded.
[2025-05-25 11:53] LABS: Hematocrit 38.8 % (37.0-47.0); Hemoglobin 13.1 g/dl (12.0-16.0); Mean Corpuscular HGB Conc 33.8 g/dl (31.0-35.0); Mean Corpuscular Hemoglobin 30.1 pg (27.0-33.0); Mean Corpuscular Volume 89.2 fL (80.0-98.0); NRBC Abs Auto 0.000 X10*3/uL (0.0-0.012); NRBC Pct Auto 0.0 /100WBC (0.0-0.2); Platelet Count 227 X10*3/uL (160-400); Red Blood Count 4.35 X10*6/uL (4.20-5.50); White Blood Count 4.1 X10*3/uL (4.8-10.8)
[2025-05-25 12:02] LABS: Hemoglobin A1C 126.6907 umol/L; Total Hemoglobin (HGBA1C) 3505.4957 umol/L
[2025-05-25 12:11] LABS: Cholesterol 227 mg/dL (<200); HDL Cholesterol 52 mg/dL (>40); Triglycerides 88 mg/dL (<150)
[2025-05-25 12:14] LABS: Thyroid Stimulating Hormone 1.33 uIU/mL (0.32-4.0)
[2025-05-25 12:48] LABS: HBS Num1 0.55 mIU/mL (0-7.99); HBc Num1 0.09 S/CO (0.00-0.79); HBsAGNum1 0.34 S/CO (0.00-0.99); Hepatitis B Surface Antigen Negative (Negative); ~HepC Num1 4.31 S/CO (0.00-0.79); ~Hepatitis B Surface Antibody NONREACTIVE (Nonreactive); ~Hepatitis C Antibody Reactive (Nonreactive)
[2025-05-26 19:23] LABS: HCV Log PCR <1.18 NOT DETECTED Log IU/mL (NOT DETECTED); HepC Viral Load <15 NOT DETECTED IU/mL (NOT DETECTED)
== END 2025-05-25 09:10 | disposition home or self-care (01) ==
LOC: HO.WFDLDS 09:09
PROVIDERS: Referring Provider Advanced Practice Midwife; Visit Provider Nurse Practitioner Family
DX: Z00.00 Encounter for general adult medical examination without abnormal findings (principal); N92.1 Excessive and frequent menstruation with irregular cycle; N92.0 Excessive and frequent menstruation with regular cycle; Z86.19 Personal history of other infectious and parasitic diseases; Z13.1 Encounter for screening for diabetes mellitus
CPT/HCPCS: 36415; 80061; 82306; 83036; 84443; 85027; 86704; 86706; 86803; 87340; 87522

== ENCOUNTER 2025-06-04 10:14 | Outpatient (AMB) | payer OTHER, SELFPAY ==
--- NOTE | 2025-06-04 10:17 | MHC.PC.OV ---
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 Required: No Is last menstrual period known: Yes Last menstrual period: 05/19/25 Post menopausal: No Patient : No Allergies Seasonal Allergies Allergy (Intermediate, Verified 06/04/25 10:33) Itchy Eyes ferrous sulfate Adverse Reaction (Intermediate, Verified 06/04/25 10:33) Stomach Upset Medication List - Last Reconciled 06/04/25 by Salena Philippe CNP dextroamphetamine-amphetamine 10 mg (Adderall) 10 mg PO BID fluoxetine 20 mg PO DAILY 90 days multivitamin 1 tab PO DAILY Tobacco use date assessed: 06/04/25 Dental Screening Dental Screen Date: 06/04/25 Did you have a dental visit in the last 12 months?: Yes Did you have a dental problem in the last 6 months where you did not have access to dental care?: No Was dental information given to patient?: Patient has dentist HPI HPI Comments History of Present Illness Details 49-year-old female presents for an extended physical exam. She admits to taking her medications as prescribed without adverse reactions. Reports controlled ADHD, anxiety, depressive symptoms. She notes that she tested positive for hepatitis-C in 2004. She contracted the virus while attending school in [facility]; needles were reused for vaccine administration. She was advised to get hepatitis-C testing every 5 years. She notes that she had 1 year of hepatitis-C treatment by an infectious disease specialist in [facility] 21 years ago and her viral load has been undetectable a year later. Acute issue(s) - None Past Medical History - iron-deficiency anemia, prediabetes, anxiety, depression, ADHD, macula degeneration, astigmatism, myopia (wears glasses), hepatitis-C Social History - Nonsmoker. Does not vape. Does not drink alcohol. Denies recreational drug use - Has been making healthy dietary choices. Exercises routinely. Generally sleep well Health maintenance - Last eye exam in 07/2024 with [facility]. 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 Brother No problems noted. Brother No problems noted. Sister No problems noted. Son No problems noted. Son No problems noted. 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 1. Little interest or pleasure in doing things: not at all 2. Feeling down, depressed, or hopeless: not at all 3. Trouble falling or staying asleep, or sleeping too much: not at all 4. Feeling tired or having little energy: not at all 5. Poor appetite or overeating: not at all 6. Feeling bad about yourself - or that you are a failure or have let yourself or your family down: not at all 7. Trouble concentrating on things, such as reading the newspaper or watching television: several days 8. Moving or speaking so slowly that other people could have noticed. Or the opposite - being so fidgety or restless that you have been moving around a lot more than usual: not at all 9. Thoughts that you would be better off or of hurting yourself in some way: not at all Total score: 1 Depression Screening Interpretation: Negative Depression Screening Done: Yes 57274 - PHQ-9 Billing: Yes Source: Developed by Drs. Chepe Cortez, Xi Burrell, David Clarke and colleagues, with an educational deepali from [employer]. Thrive Questionnaire Date Thrive assessed: 06/04/25 I am a: Patient What is your living situation today?: I have a steady place to live Within the past 12 months, did the food you bought not last and you didn't have the money to get more?: Never true Within the past 12 months, did you worry whether your food would run out before you got money to buy more?: Never true Do you have trouble paying for medicines?: No Do you have trouble getting transportation to medical appointments?: No Do you have trouble paying your heating and electricity bill?: No Do you have trouble taking care of your child, family member or friend?: No Do you have trouble with day-to-day activities such as bathing, preparing meals, shopping, managing finances, etc.?: No Are you currently unemployed and looking for a job?: No Are you interested in more education?: No Please select the resources that you would like help with: None Currently or been in a relationship where the following occur: No concerns reported THRIVE Score: 0 AUDIT C Alcohol Use Questionnaire (AUDIT-C) 1. How often do you have a drink containing alcohol?: Never 3. How often do you have six or more drinks on one occasion?: Never Total Score: 0 Score Reviewed/Action Taken: Yes CACHORRO-7 AMB Questionnaire CACHORRO-7 Date CACHORRO - 7 assessed: 06/04/25 Feeling nervous, anxious, or on edge: 0 = Not at all Not being able to stop or control worryin = Not at all Worrying too much about different things: 0 = Not at all Trouble relaxin = Not at all Being so restless that it is hard to sit still: 0 = Not at all Becoming easily annoyed or irritable: 0 = Not at all Feeling afraid as if something awful might happen: 0 = Not at all Total CACHORRO-7 score (0-4 normal; 5-9 mild; 10-14 moderate; 15-21 severe): 0 Source: Developed by Drs. Chepe Cortez, Xi Burrell, David Clarke and colleagues, with an educational deepali from [employer]. CACHORRO-7 Assessment Billing CACHORRO-7 Assessment Tool: CACHORRO-7 Assessment 89452 Review of Systems Const Details: Denies chills, Denies fatigue, Denies fever(s), Denies headache(s) and Denies weakness HEENT Denies change in vision, Denies dizziness, Denies headache(s), Denies hearing loss, Denies nasal congestion, Denies sinus pain, Denies sinus pressure and Denies sore throat Card Denies chest pain, Denies lightheadedness, Denies dyspnea and Denies other (palpitations) Resp Denies cough, Denies dyspnea and Denies wheezing GI Denies abdominal pain, Denies melena, Denies hematochezia, Denies change in bowel habits, Denies dyspepsia and Denies nausea Denies hematuria and Denies dysuria Musc Denies abnormal gait, Denies myalgias, Denies arthralgias, Denies numbness and Denies tingling Skin/Breast Denies rash, Denies unusual bruising and Denies wounds Neuro Denies abnormal gait, Denies dizziness, Denies headache(s), Denies memory loss, Denies numbness, Denies Sensory deficit (Neuro), Denies tingling and Denies weakness Psych Denies anxiety, Denies depression and Denies memory loss Endo Denies cold intolerance, Denies fatigue, Denies heat intolerance, Denies polydipsia and Denies polyuria Kedar/Lymph Denies easy bleeding and Denies easy bruising Aller/Immun Denies wheezing Physical exam (Primary Care) Vital Signs: Last Vital Signs Temp 98.2 F 06/04/25 10:21 Pulse 88 06/04/25 10:21 Resp 16 06/04/25 10:21 BP 110/66 06/04/25 10:21 Pulse Ox 96 06/04/25 10:21 Oxygen Delivery Method Room Air 06/04/25 10:21 BMI result Body Mass Index 25.8 Tobacco/Smoking Status: Tobacco use Status Tobacco use date assessed 06/04/25 06/04/25 10:26 Patient Tobacco Use Status Never used Tobacco 06/04/25 10:26 e-Cigarette/Vaping Use Never Used 06/04/25 10:26 PHQ-9: PHQ-9 Score PHQ-9: Total score 1 06/05/25 07:50 Depression Screening Interpretation: Negative Thrive Assessment: Date of Thrive Assessment Date Thrive assessed 06/04/25 06/04/25 10:26 Currently or been in a relationship where the following occur: No concerns reported Const Other: General: no acute distress, well developed, alert and awake Nutritional Appearance: well nourished Orientation/consciousness: patient oriented x3 HENMT Head: Yes normocephalic and Yes atraumatic Ears: hearing grossly normal bilaterally and TM's normal bilaterally General nose exam: Normal external nose present and Normal nares present Mouth: Normal oral and palatal mucosa present and moist mucous membranes Teeth and gingiva: dentition normal Throat: Yes oropharynx normal Eyes Pupils: Equal, round and reactive pupils present and Pupil accommodation reflex normal EOM: EOMs intact bilaterally Neck Neck: Yes normal visual inspection, Yes no lymphadenopathy and Yes trachea midline Thyroid: Thyroid normal Carotids: no bruits Lymphatic: no lymphadenopathy noted Chest Chest palpation & inspection: normal inspection of the chest Resp Effort & Inspection: normal respiratory effort Auscultation: clear to auscultation bilaterally Cardio Rate: regular rate Rhythm: regular rhythm Heart sounds: S1 normal heart sound present, S2 normal heart sound present, no gallops, no murmurs and no rubs Bruits: no abdominal aortic bruits and no carotid bruits GI Palpation (GI): No Abdominal aortic bruit present, Soft to palpation, nontender, No hepatosplenomegaly present and No Rebound tenderness present Auscultation: normal bowel sounds General: Yes no CVA tenderness Back/Spine/Pelvis Back: no CVA tenderness Cervical Spine: cervical ROM normal and No Cervical spine tenderness Thoracic/Lumbar Spine: thoraco-lumbar ROM normal, No pain with thoraco-lumbar ROM, No thoracic spinal tenderness and No lumbar spinal tenderness Skin General: warm and dry. Normal skin color. Normal skin turgor Lesions: no lesions Rashes: no rashes Trauma: no lacerations or abrasions Wounds: no wounds Nails: normal Neuro General: patient oriented x3, gait normal and CN's II-XI intact bilaterally Cranial nerves: Yes Equal, round and reactive pupils present Cognition (Neuro): normal cognition Gait exam (Neuro): Normal gait present Motor exam (neuro): 5/5 motor strength present throughout Sensory Exam: No Sensory deficit (Neuro) Deep tendon reflexes (DTR's): Right patellar reflex intensity grade: 2+ and Left patellar reflex intensity grade: 2+ Extrem General: Yes normal to inspection, No edema and No calf tenderness Psych Appearance: grossly normal Affect: normal affect Attitude: cooperative Thought process: Normal thought process present Coding Level of Care Code Est Pt Level 3 (80842) Est Pt Prev Care 40-64y(48595) Diagnoses Normal physical examination, routine Z00.00 Hepatitis C B19.20 Pre-diabetes R73.03 Hypercholesterolemia E78.00 Additional Codes CACHORRO-7 Assessment Billing - CACHORRO-7 Assessment Tool: CACHORRO-7 Assessment 00846 ([id number]) PHQ-9 - 09638 - PHQ-9 Billing: Yes ([id number]) Assessment & Plan Assessment & Plan (1) Normal physical examination, routine: Code(s): Z00.00 - Encounter for general adult medical examination without abnormal findings Category: Medical Plan: No significant functional limitation noted. Continue current treatment regimen. Healthy diet and routine exercise encouraged. Follow-up in 3 months for hypercholesterolemia, ADHD, anxiety, and depression. Return sooner with symptoms or concerns. Verbalized understanding and agreed with treatment plan. (2) Hepatitis C: Code(s): B19.20 - Unspecified viral hepatitis C without hepatic coma Category: Medical Plan: Positive hepatitis-C but viral load is undetectable. She notes that she tested positive for hepatitis-C in 2004. She contracted the virus while attending school in [facility]; needles were reused for vaccine administration. She was advised to get hepatitis-C testing every 5 years. She notes that she had 1 year of hepatitis-C treatment by an infectious disease specialist in [facility] 21 years ago and her viral load has been undetectable a year later. Will continue to monitor hepatitis-C every 5 years or as needed. Verbalized understanding and agreed with the plan. (3) Pre-diabetes: Code(s): R73.03 - Prediabetes Category: Medical Plan: Recent A1c is 5.5%. Healthy diet and routine exercise encouraged. Will monitor A1c level annually or as needed. Verbalized understanding and agreed with the plan. (4) Hypercholesterolemia: Code(s): E78.00 - Pure hypercholesterolemia, unspecified Category: Medical Plan: Recent total cholesterol and LDL levels are elevated, 227 and 158 respectively. Triglycerides and HDL levels are normal. Advised to limit foods high in saturated fat and avoid foods high in trans fat. Routine exercise encouraged. Fast for 10-12 hours, may drink water, and perform lipid panel blood work a few days before next visit. Follow-up in 3 months. Verbalized understanding and agreed with the plan. Orders: Orders Comprehensive [place]. Panel Fast 06/04/25 Z00.00 - Encounter for general adult medical examination without abnormal findings Lipid Panel 3 Months E78.00 - Pure hypercholesterolemia, unspecified
[2025-06-04 10:21] VITALS: BP 110/66; PULSE 88; RESP 16; TEMP 36.8; O2SAT 96; BMI 25.8
--- OUTSIDE RECORDS SUMMARY | 2025-06-04 11:08 | XMS_ITS | Data Portability ---
Author Organization [facility] S pecialistsYESENIA Noel [facility] - [facility] Address [address] [facility] [address] [place] [address] Care Team Providers Care Software Implementation Project Manager Name Role Phone DIDIERROSE Primary Care Provider Assessment No assessment recorded. Plan of Treatment Reminders Order Date Submit Date Provider Last Modified By Organization Details Last Modified Time Details Appointments None recorded. Lab None recorded. Referral None recorded. Procedures None recorded. Surgeries None recorded. Imaging None recorded. Medication Orders Lotrisone 1 %-0.05 % topical cream 2018 019 [facility] [id number], [address] [place], [address], 9 14:17:46 Lotrisone 1 %-0.05 % topical cream 2017 018 [facility] [id number], [address] [place], [address], 8 16:52:27 Lotrisone 1 %-0.05 % topical cream 2017 018 [facility] [id number], [address] [place], [address], 8 13:31:26 Patient TargetsNo targets recorded. Patient InstructionsNo instructions recorded. Reason for Referral None Reported. Results Created Date Observation Date Name Description Value Unit Range Abnormal Flag Note LastModifiedBy Organization Detail LastModifiedTime 04/21/20 18 04/21/2018 dimitrios armijo Right Not Available [facility] - [address], [place], [address], 04/21/2018 15:39:22 04/21/20 18 04/21/2018 dimitrios armijo Left Type A Normal Not Available [facility] - [address], [place], [address], 04/21/2018 15:39:22 04/21/20 18 04/21/2018 audio gram Results: See Lin tate Result s Not Available [facility] - [address], [place], [address], 04/21/2018 15:39:24 04/21/20 18 audio gram No observ ation record ed. BARCODE Not Available 2017 16:10:37 Result Notes None recorded. Problems No Known Problems Procedures Surgical History Date Name Laterality Status Provider Name and Address Organization Details Recorded Time 9 Cerumen removal with microscope 58031 completed Luigi Barone MD [address] [facility] [address], [place], [address], [facility]. 03/31/2019 14:19:23 8 Cerumen removal with microscope 21230 completed LUCÍA CHAVEZ [facility]. 03/09/2018 16:41:03 7 Cerumen removal without microscope 25834 completed Elsie Ortega [facility]. 10/05/2017 13:17:31 7 Cerumen removal with microscope 91297 completed Elsie Ortega [facility]. 10/05/2017 13:17:31 Imaging Results [...] Updated DateTime 9 162.56 cm 23.2 kg/m2 09547.9 7 g 79 /min 99.4 [degF] 103/70 mm[Hg] KRYSTIAN DAHIANA [facility] 9 13:37:34 Date Recorded Body height Body mass index (BMI) Body weight Heart rate Respiratory rate Body temperature Systolic And Diastolic Provider Name and Address Organization Details Last Updated DateTime 8 162.56 cm 23.2 kg/m2 22261.9 7 g 76 /min 14 /min 98.9 [degF] 118/79 mm[Hg] MADALYN DUBOIS [facility] 8 15:35:18 Date Recorded Body height Heart rate Body mass index (BMI) Body weight Body temperature Systolic And Diastolic Provider Name and Address Organization Details Last Updated DateTime 8 162.56 cm 78 /min 23.2 kg/m2 73731.9 7 g 97.5 [degF] 110/70 mm[Hg] Kar Boone [facility] 8 15:46:38 Date Recorded Body height Body mass index (BMI) Body weight Heart rate Body temperature Systolic And Diastolic Provider Name and Address Organization Details Last Updated DateTime 8 162.56 cm 23.2 kg/m2 20936.9 7 g 88 /min 99.2 [degF] 125/74 mm[Hg] AILYN SCHULTZ [facility] 8 13:23:18 Date Recorded Body height Body mass index (BMI) Body weight Heart rate Body temperature Systolic And Diastolic Provider Name and Address Organization Details Last Updated DateTime 8 162.56 cm 23.2 kg/m2 76721.9 7 g 85 /min 99.3 [degF] 108/68 mm[Hg] Xi Perry [facility] 8 16:31:53 Social History Question Answer Notes LastModified by Organizat ion Details LastModified Time Tobacco Smoking Status Never Smoker Kar harris [facility]. 04/27/2018 15:49:24 What Is [...] SNOMED-CT Code Diagnosis ICD10 Code Diagnosis Note [id number] Omar Stanton MD [facility] - [address] [facility] [address] [address] [place] [address] 10/05/2017 12:32:13 10/05/2017 14:08:35 Fissure in skin 49976174 R23.4 AD. impetigo with mild cellulitis component surroundin g fissure. strict digital precaution s. alternate TAC and Bacitracin topically BID-TID each. good technique as advised w qtip. gently. f/u 7-10 days w audio and recheck to ensure resolution . pt feels hearing may be less than normal in contralate ral ear at times. 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 h20 & digital prec. Acute ecze matoid otitis externa 59678635 H60.549 Acute otitis externa 302 46518 H60.501 [id number] Brendan Armenta MD [facility] - [address] [address] 03/09/2018 16:01:33 03/09/2018 16:49:51 Impacted cerumen of bilateral ears [id number] 654619 H61.23 All wax removed under microscope with relief Candidal o titis externa 78525454 B37.84 Left side. Nystatin powder sprayed. [id number] Luigi Barone MD [facility] [address] [address] 03/21/2018 16:34:58 03/21/2018 17:23:23 Otalgia of right ear 7968211521 521539 H92.01 Left side Candidal o titis externa 41984723 B37.84 Left side. Nystatin powder sprayed. [id number] MD NICK Nicole [address] [facility] [place] [address] 04/19/2018 14:50:55 04/19/2018 15:21:56 Diffuse otitis externa 03679328 H60.311 Keep ear dry [id number] Vikas Hahn MD [facility] [address] [address] 04/21/2018 14:54:40 04/21/2018 15:50:59 Diffuse otitis externa 29008147 H60.311 Keep ear dry [id number] TUSHAR ZAIDI [facility] [address] [address] 04/21/2018 14:56:11 04/21/2018 15:49:03 Unilateral conductive hearing loss with unrestricted hearing on the contralateral side 265924408 H90.11 [id number] MD NICK Nicole [address] [facility] [place] [address] 04/27/2018 15:35:49 04/27/2018 16:09:18 Diffuse otitis externa 13827905 H60.311 Much improved. Keep ear dry Vinegar/ET OH irrigation as discussed. [id number] MD LOKESH NicoleMING - [address] [facility] [place] [address] 05/24/2018 13:17:47 05/24/2018 13:33:54 Chronic otitis externa 98682377 H60.62 [id number] MD LOKESH NicoleMING - [address] [facility] [place] [address] 06/15/2018 16:22:29 06/15/2018 16:55:27 Chronic otitis externa 67015509 H60.62 Much improved. [id number] Luigi Barone MD [facility] - [address] [facility] [address] 03/31/2019 13:27:42 03/31/2019 14:25:13 Otitis externa 4765429 H60.90 Removed cerumen. No sign of infection. Some dermatitis of the ear canal Impacted c erumen in right ear 6622000140 232534 H61.21 Temporoman dibular uqzdd-bask-njsvbwfsur n syndrome 355726370 M26.623 Health Concerns Section Related Observation LastModified by Organization Detai ls LastModified Time None Recorded Concern Status LastModified by Organization Details LastModified Time None Recorded Advance Directives Directive None Recorded Payers Insurance Date Sequence Insurance Name Policy Number Policy Dum[place] Covered Member ID Dumas Member ID Guarantor Name 03/31/2019 1 [place]: [facility] BENEFIT [facility] - [place] OPEN ACCESS (HMO) [employer] [id number] [facility] 03/31/2019 1 *SELF PAY* In [facility] Notes Date Note Type Note Provider Name [...] makes it worse Vikas Hahn MD [address] [facility],[address], [place], [address], [facility]. 04/21/2018 15:50:35 04/21/2018 text/html Right ear fullne ss, hearing loss, severe pain, outer pinna and inner ears. Recently treated for left ear infection. no concerns for left ear at today's visit. Occasional ringing of right ear. Patient denied active drainage, history of noise exposure, and dizziness. ABIODUN harris [place] [facility]. 04/21/2018 15:40:53 04/27/2018 text/html Ear Pain/InfectionReported bypatient.Location:ear fullness bilateral;loss of hearing bilateral Quality:sharp pain;deep pain;itching;sounds distorted;sounds muffled Severity:interference with sleep Alleviating factors:ototopical antibiotics Aggravating factors:nothing makes it worseHearing LossReported bypatient.Location:los s of hearing bilateral Quality:sounds distorted;sounds muffled Severity:interference with sleep Alleviating factors:nothing gives relief Aggravating factors:nothing makes it worse Vikas Hahn MD [address] [facility],[address], [place], [address], [facility]. 04/28/2018 07:58:50 05/24/2018 [...] makes it worse Vikas Hahn MD [address] [facility] [address], [place], [address], [facility]. 05/24/2018 13:32:41 06/15/2018 text/html Ear FullnessRepo rted bypatient.Location:ear fullness left Onset/Timing:resolved fullness Duration:resolved drainage Quality:dull pain;sounds muffled Alleviating factors:Relief with Lotrisone creamNotes: Vikas Hahn MD [address],[facility] [address], [place], [address], [facility]. 06/15/2018 16:52:27 03/31/2019 [...] no nasal discharge Luigi Barone MD [address] [facility] [address], [place], [address], [facility]. 03/31/2019 14:35:00 OBGyn Episode No OBEpisode recorded.
== END 2025-06-04 10:55 | disposition home or self-care (01) ==
LOC: HO.HMCFM 10:15
PROVIDERS: PCP Nurse Practitioner Family; Visit Provider Nurse Practitioner Family
DX: Z00.00 Encounter for general adult medical examination without abnormal findings (principal); B19.20 Unspecified viral hepatitis C without hepatic coma; R73.03 Prediabetes; E78.00 Pure hypercholesterolemia, unspecified

== ENCOUNTER → 2025-06-04 10:14 | Outpatient (BNVA) | payer OTHER, SELFPAY | PROVIDERS: PCP Nurse Practitioner Family; Visit Provider Nurse Practitioner Family | DX: Z00.00 Encounter for general adult medical examination without abnormal findings (principal); F90.9 Attention-deficit hyperactivity disorder, unspecified type; F41.9 Anxiety disorder, unspecified; B19.20 Unspecified viral hepatitis C without hepatic coma; R73.03 Prediabetes; E78.00 Pure hypercholesterolemia, unspecified | CPT/HCPCS: 96127 ==

== ENCOUNTER 2025-09-04 15:08 | Outpatient (AMB) | payer OTHER, SELFPAY ==
--- NOTE | 2025-09-04 15:15 | A.OFFPC_ITS ---
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 Is last menstrual period known: Yes Last menstrual period: 09/02/25 Post menopausal: No Patient : No Allergies Seasonal Allergies Allergy (Intermediate, Verified 09/04/25 15:) Itchy Eyes ferrous sulfate Adverse Reaction (Intermediate, Verified 09/04/25:) Stomach Upset Medication List - Last Reconciled 09/04/25 by Salena Philippe CNP dextroamphetamine-amphetamine 10 mg (Adderall) 10 mg PO BID fluoxetine 20 mg PO DAILY 90 days multivitamin 1 tab PO DAILY Tobacco use date assessed: 09/04/25 Dental Screening Dental Screen Date: 09/04/25 Did you have a dental visit in the last 12 months?: Yes Did you have a dental problem in the last 6 months where you did not have access to dental care?: No Was dental information given to patient?: Patient has dentist HPI HPI Comments History of Present Illness Details 49-year-old female presents for hypercho lesterolemia, anxiety, depression, and ADHD follow-up. She admits to taking fluoxetine and Adderall as prescribed without adverse reactions. She reports controlled anxiety, depression, and ADHD symptoms. He admits to making lifestyle changes, including diet and exercise. She denies unintentional weight loss, loss of appetite, or sleep disturbance. She offers no complaints and denies acute symptoms at this time. She did not get blood work done for this visit as planned. [facility] Medical History (Updated 06/04/25 @ 10:28 by Salena Philippe CNP) Heavy menses Pelvic cramping Radiation effect Gestational diabetes Pre-diabetes ADHD (attention deficit hyperactivity disorder) Anxiety and depression Iron deficiency anemia Macular degeneration Hepatitis C Surgical History History of tubal ligation Family History Father Depression Mental health disorder Mother Depression HTN (hypertension) Mental health disorder Brother No problems noted. Brother No problems noted. Brother No problems noted. Sister No problems noted. Son No problems noted. Son No problems noted. 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 1. Little interest or pleasure in doing things: not at all 2. Feeling down, depressed, or hopeless: not at all 3. Trouble falling or staying asleep, or sleeping too much: several days 4. Feeling tired or having little energy: several days 5. Poor appetite or overeating: not at all 6. Feeling bad about yourself - or that you are a failure or have let yourself or your family down: not at all 7. Trouble concentrating on things, such as reading the newspaper or watching television: several days 8. Moving or speaking so slowly that other people could have noticed. Or the opposite - being so fidgety or restless that you have been moving around a lot more than usual: not at all 9. Thoughts that you would be better off or of hurting yourself in some way: not at all Total score: 3 Depression Screening Interpretation: Negative Depression Screening Done: Yes 85716 - PHQ-9 Billing: Yes Source: Developed by Drs. Chepe Cortez, Xi Burrell, David Clarke and colleagues, with an educational deepali from [employer]. Thrive Questionnaire Date Thrive assessed: 11/21/24 I am a: Patient What is your living situation today?: I have a steady place to live Within the past 12 months, did the food you bought not last and you didn't have the money to get more?: Never true Within the past 12 months, did you worry whether your food would run out before you got money to buy more?: Never true Do you have trouble paying for medicines?: No Do you have trouble getting transportation to medical appointments?: No Do you have trouble paying your heating and electricity bill?: No Do you have trouble taking care of your child, family member or friend?: No Do you have trouble with day-to-day activities such as bathing, preparing meals, shopping, managing finances, etc.?: No Are you currently unemployed and looking for a job?: No Are you interested in more education?: No Please select the resources that you would like help with: None Currently or been in a relationship where the following occur: No concerns reported THRIVE Score: 0 CACHORRO-7 AMB Questionnaire CACHORRO-7 Date CACHORRO - 7 assessed: 09/04/25 Feeling nervous, anxious, or on edge: 0 = Not at all Not being able to stop or control worryin = Not at all Worrying too much about different things: 1 = Several days Trouble relaxin = Several days Being so restless that it is hard to sit still: 1 = Several days Becoming easily annoyed or irritable: 1 = Several days Feeling afraid as if something awful might happen: 0 = Not at all Total CACHORRO-7 score (0-4 normal; 5-9 mild; 10-14 moderate; 15-21 severe): 4 Source: Developed by Drs. Chepe Cortez, Xi Burrell, aDvid Clarke and colleagues, with an educational deepali from [employer]. CACHORRO-7 Assessment Billing CACHORRO-7 Assessment Tool: CACHORRO-7 Assessment 85124 Review of Systems Const Details: Const Denies chills, Denies fatigue, Denies fever(s), Denies headache(s) and Denies weakness ENT Denies dizziness and Denies headache(s) Card Denies chest pain, Denies lightheadedness, Denies dyspnea and Denies other (Palpitations) Resp Denies cough, Denies dyspnea, Denies wheezing and Denies other ( shortness of breath) GI Denies abdominal pain, Denies melena, Denies hematochezia, Denies change in bowel habits, Denies dyspepsia and Denies nausea Denies hematuria and Denies dysuria Musc Denies abnormal gait, Denies myalgias, Denies arthralgias, Denies numbness and Denies tingling Skin/Breast Denies rash, Denies unusual bruising and Denies wounds Neuro Denies abnormal gait, Denies dizziness, Denies headache(s), Denies memory loss, Denies numbness, Denies Sensory deficit (Neuro), Denies tingling and Denies weakness Psych Denies anxiety, Denies depression, Denies memory loss Endo Denies cold intolerance, Denies fatigue, Denies heat intolerance, Denies polydipsia and Denies polyuria Aller/Immun Denies wheezing Physical exam (Primary Care) Tobacco/Smoking Status: Tobacco use Status Tobacco use date assessed 06/04/25 09/04/25 15:17 Patient Tobacco Use Status Never used Tobacco 09/04/25 15:17 e-Cigarette/Vaping Use Never Used 09/04/25 15:17 Depression Screening Interpretation: Negative Thrive Assessment: Date of Thrive Assessment Date Thrive assessed 11/21/24 09/04/25 15:17 Currently or been in a relationship where the following occur: No concerns reported Const Other: General: no acute distress and well developed Nutritional Appearance: well nourished Orientation/consciousness: patient oriented x3 HENMT Head: Yes normocephalic and Yes atraumatic Eyes General: appearance normal, both eyes and all related structures Pupils: Equal, round and reactive pupils present EOM: EOMs intact bilaterally Resp Effort & Inspection: normal respiratory effort Auscultation: clear to auscultation bilaterally Cardio Rate: regular rate Rhythm: regular rhythm Heart sounds: S1 normal heart sound present, S2 normal heart sound present, no gallops, no murmurs and no rubs GI Palpation (GI): No Abdominal aortic bruit present, Soft to palpation, nontender, No hepatosplenomegaly present and No Rebound tenderness present Auscultation: normal bowel sounds General: Yes no CVA tenderness Back/Spine/Pelvis Back: no CVA tenderness Cervical Spine: cervical ROM normal and No Cervical spine tenderness Thoracic/Lumbar Spine: thoraco-lumbar ROM normal, No pain with thoraco-lumbar ROM, No thoracic spinal tenderness and No lumbar spinal tenderness Extrem General: Yes normal to inspection, No edema and No calf tenderness Skin General: warm and dry. Normal skin color. Normal skin turgor Neuro General: patient oriented x3, gait normal and no focal neuro deficit Cranial nerves: Yes Equal, round and reactive pupils present Cognition (Neuro): normal cognition Gait exam (Neuro): Normal gait present Sensory Exam: No Sensory deficit (Neuro) Psych Appearance: grossly normal Affect: normal affect Attitude: cooperative Thought process: Normal thought process present Coding Level of Care Code Est Pt Level 3 (49201) Diagnoses Anxiety and depression F41.9; F32.A ADHD F90.9 Hypercholesterolemia E78.00 Additional Codes CACHORRO-7 Assessment Billing - CACHORRO-7 Assessment Tool: CACHORRO-7 Assessment 37032 ([id number]) PHQ-9 - 02203 - PHQ-9 Billing: Yes ([id number]) Assessment & Plan Assessment & Plan (1) Anxiety and depression: Code(s): F41.9 - Anxiety disorder, unspecified; F32.A - Depression, unspecified Category: Medical Plan: Reports controlled anxiety depression, and ADHD symptoms. PHQ-9 and CACHORRO-7 scores are normal. Continue current treatment regimen. Routine exercise encouraged. Follow-up in 3 months or sooner with symptoms or concerns. Verbalized understanding and agreed with the plan. (2) ADHD: Code(s): F90.9 - Attention-deficit hyperactivity disorder, unspecified type Category: Medical Plan: Plan as above. (3) Hypercholesterolemia: Code(s): E78.00 - Pure hypercholesterolemia, unspecified Category: Medical Plan: She did not get blood work done for this visit as planned. Healthy diet and routine exercise encouraged. Encouraged to perform fasting blood work before next visit. Verbalized understanding and agreed with the plan.
[2025-09-04 15:19] VITALS: BP 144/65; PULSE 65; RESP 16; TEMP 36.6; O2SAT 100; BMI 26.5
[2025-09-04 15:36] VITALS: BP 130/84
== END 2025-09-04 15:35 | disposition home or self-care (01) ==
LOC: HO.HMCFM 15:09
PROVIDERS: PCP Nurse Practitioner Family; Visit Provider Nurse Practitioner Family
DX: F41.9 Anxiety disorder, unspecified (principal); F32.A Depression, unspecified; F90.9 Attention-deficit hyperactivity disorder, unspecified type; E78.00 Pure hypercholesterolemia, unspecified

== ENCOUNTER → 2025-09-04 15:08 | Outpatient (BNVA) | payer OTHER, SELFPAY | PROVIDERS: PCP Nurse Practitioner Family; Visit Provider Nurse Practitioner Family | DX: E78.00 Pure hypercholesterolemia, unspecified (principal); F41.9 Anxiety disorder, unspecified; F32.A Depression, unspecified; F90.9 Attention-deficit hyperactivity disorder, unspecified type | CPT/HCPCS: 96127 ==